=== PATIENT | male | born 1940 | race Caucasian/White ===

== ENCOUNTER 2017-12-15 15:46 | Inpatient (IN) | payer MEDICARE, BC ==
[2017-12-15] VITALS (9 sets, daily range): BP systolic 89–124; BP diastolic 50–70
[~2017-12-15] VITALS: Ht 170.2 cm; Wt 102.5 kg
[2017-12-15] MEDS ORDERED: Cefepime HCl 1 GM in NS 55 ML IV SCH (16:00)
[2017-12-15] MEDS ORDERED: NS 1000ml 2,800 ML IVLG ONE (16:00)
--- NOTE | 2017-12-15 16:10 | Emergency Room Report ---
History of Present Illness General Chief Complaint: Fever Source: Medical Record Present Illness HPI Mr. Pulliam is a 77-year-old male with history of hypertension, coronary artery disease, diabetes, BPH, GERD, VTE, CVA, pressure ulcers who presents with fever and lethargy. Recently diagnosed with kidney stone which is causing obstruction. No known surgical intervention. dx'd at [facility]. Has had a fever. noted that has been delirious and confused. Patient unable to give much history. He states that he's had pain in his rectal region after rectal temperature was obtained. Additional history was obtained by the when she arrived to the ER. Mr. Pulliam has a history of PE and DVT after a prolonged hospitalization. He is taking Xarelto at this time. It was held during recent urological intervention. Lithotripsy was not successful as treatment of right renal stone. Ureteral stent was placed. Patient also has history of coronary artery disease status post 2 cardiac stents placed over 5 years ago. PCP is Dr. Calixto Meza Allergies: Coded Allergies: No Known Allergies (Unverified , 12/15/17) Patient History Past Medical History: see triage record, old chart reviewed Past Surgical History: unable to obtain Pertinent Family History: unable to obtain Social History Narrative UTO Reviewed Nursing Documentation: PMH: Agreed; PSxH: Agreed Nursing Documentation-PMH Past Medical History: No History, Except For Hx Hypertension: Yes Hx Diabetes: Yes Hx Cerebrovascular Accident: Yes - left side weakness Review of Systems All Other Systems: limited - altered mental status Physical Exam Vital Signs Date Time Temp Pulse Resp B/P (MAP) Pulse Ox O2 Delivery O2 Flow Rate FiO2 12/15/17 15:40 100.2 102 18 105/76 98 Non-Rebreather 15.0 General Appearance: alert, mild distress, Chronically Ill Eyes: bilateral eye normal inspection, bilateral eye PERRL ENT: dry mucus membranes Neck: normal inspection, full range of motion Respiratory: normal inspection, chest non-tender, lungs clear, normal breath sounds, no rhonchi Cardiovascular #1: regular rate, rhythm, no gallop, no JVD, no murmur Cardiovascular #2: 2+ radial (R) Gastrointestinal: normal inspection, normal bowel sounds, non tender, soft, no mass, no organomegaly, no peritonitis, no bruit Rectal: normal exam Genitourinary: normal inspection Musculoskeletal: normal inspection Psychiatric: other - confused, confabulation Skin: pallor, other - clammy to touch Procedures Critical Care Time Critical Care Time 35 minutes of critical care time excluding procedures were used in the care of the patient. I reviewed labs and imaging. I reviewed previous electronic medical record. I updated at the bedside. Patient required multiple reassessments and interventions. Medical Decision Making Diagnostic Impression: Primary Impression: Sepsis Additional Impression: NSTEMI (non-ST elevated myocardial infarction) ER Course 1. sepsis: perinephric stranding seen on CT, possible source of infection in the tract with hx of recent intervention by urologist at [facility], explained that he had reese catheter removed yesterday, CXR without infiltrate 2. NSTEMI with hx of PE on Xarelo, DDX: NSTEMI, PE, given ASA admitted to ICU Admitted in serious condition Dr. Ron service EKG Diagnostic Results EKG Time: 15:55 Rate: tachycardiac ST Segments: no acute changes Other Impression no ST elevation no signs of schemia rate 100 bpm nl axis nl intervals PA Scribe Text second EKG obtained 1705 rate 95 bpm nl axis nl intervals no ST elevation no signs of ischemia poor R wave progression Rhythm Strip Diag. Results Rhythm Strip Time: 17:05 Last Vital Signs Date Time Temp Pulse Resp B/P (MAP) Pulse Ox O2 Delivery O2 Flow Rate FiO2 12/15/17 15:40 100.2 102 18 105/76 98 Non-Rebreather 15.0 Arlen Cruz MD Dec 15, 2017 16:10
[2017-12-15 16:17] LABS: HEMOGLOBIN 12.1 G/DL (14.2-18.0); MEAN CORPUSCULAR VOLUME 88 FL (80-99); PLATELET COUNT 293 K/UL (150-450); RED BLOOD COUNT 3.86 M/UL (4.70-6.10); RED CELL DISTRIBUTION WIDTH 12.3 % (11.6-14.8); WHITE BLOOD COUNT 21.6 K/UL (4.8-10.8)
[2017-12-15 16:27] LABS: APPEARANCE,URINE SLIGHTLY CLOUDY; BILIRUBIN, URINE NEGATIVE (NEGATIVE); COLOR,URINE BROWN; GLUCOSE, URINE (UA) NEGATIVE (NEGATIVE); KETONES,URINE 1+ (NEGATIVE); LEUKOCYTE ESTERASE ,URINE 3+ (NEGATIVE); NITRITE,URINE POSITIVE (NEGATIVE); PH,URINE 5 (4.5-8.0); PROTEIN,URINE 3+ (NEGATIVE); UROBILINOGEN,URINE 1 MG/DL (0.0-1.0)
[2017-12-15 16:32] LABS: INR 1.6 (0.9-1.1)
[2017-12-15] MEDS ORDERED: SIMETHICONE80 MG ORAL (16:43)
[2017-12-15] MEDS ORDERED: ZETIA10 MG ORAL (16:43)
[2017-12-15] MEDS ORDERED: ASCORBIC ACID500 MG ORAL (16:43)
[2017-12-15] MEDS ORDERED: ZINC SULFATE220 M1 ORAL (16:43)
[2017-12-15] MEDS ORDERED: MILK OF MA400 MG/51 ORAL (16:43)
[2017-12-15] MEDS ORDERED: PANTOPRAZOLE SO40 MG ORAL (16:43)
[2017-12-15] MEDS ORDERED: MULTIVITAMINS1 EAC2 ORAL (16:43)
[2017-12-15] MEDS ORDERED: XARELTO10 MG ORAL (16:43)
[2017-12-15] MEDS ORDERED: COLACE100 MG ORAL (16:43)
[2017-12-15] MEDS ORDERED: TAMSULOSIN HCL0.4 MG ORAL (16:43)
[2017-12-15] MEDS ORDERED: PROSCAR5 MG ORAL (16:43)
[2017-12-15] MEDS ORDERED: SENNA8.6 M2 PO (16:43)
[2017-12-15] MEDS ORDERED: ACETAMINOP160 MG/54 ORAL (16:43)
[2017-12-15] MEDS ORDERED: ATORVASTATIN CA20 MG ORAL (16:43)
[2017-12-15] MEDS ORDERED: GABAPENTIN300 MG ORAL (16:43)
[2017-12-15] MEDS ORDERED: VITAMIN D400 INTLU ORAL (16:43)
[2017-12-15] MEDS ORDERED: TRAMADOL HCL50 MG ORAL (16:43)
[2017-12-15] MEDS ORDERED: FAMOTIDINE20 MG ORAL (16:43)
[2017-12-15 16:44] LABS: ANION GAP 10 mmol/L (5-15); BLOOD UREA NITROGEN 27 mg/dL (7-18); CALCIUM 9.2 MG/DL (8.5-10.1); CARBON DIOXIDE 28 MMOL/L (21-32); CHLORIDE 103 MMOL/L (98-107); POTASSIUM 4.2 MMOL/L (3.5-5.1); SODIUM 141 MMOL/L (136-145)
[2017-12-15 16:48] LABS: ALANINE AMINOTRANSFERASE 49 U/L (12-78); ALBUMIN 2.6 G/DL (3.4-5.0); ALBUMIN/GLOBULIN RATIO 0.6 (1.0-2.7); ALKALINE PHOSPHATASE 106 U/L (46-116); ASPARTATE AMINO TRANSFERASE 52 U/L (15-37); BILIRUBIN,TOTAL 0.9 MG/DL (0.2-1.0)
[2017-12-15] MEDS ORDERED: Miralax 17gm pkt ORAL PRN (19:00)
[2017-12-15] MEDS ORDERED: Morphine Sulfate 2mg/ml Inj IVP PRN (19:00)
[2017-12-15] MEDS ORDERED: Albuterol/Ipratropium 3ml neb HHN PRN (19:00)
[2017-12-15] MEDS ORDERED: Enalaprilat 2.5mg/2ml Inj IV PRN (19:00)
[2017-12-15] MEDS ORDERED: Nitroglycerin Subl 0.4mg tab SL PRN (19:00)
[2017-12-15] MEDS ORDERED: dilTIAZem HCl 25mg/5ml Inj IV PRN (19:00)
--- NOTE | 2017-12-15 19:38 | History & Physical ---
History and Physical History & Physicial Dictated for Int Med-Dr Ron no. [id number] Mehdi Blair MD Dec 15, 2017 19:38
--- NOTE | 2017-12-15 19:59 | Cardiology Progress Note ---
Assessment/Plan Assessment/Plan repeat ekg adn trop now and q8h ecotrin dc xarelto start on heparin tomorrow Ecotrin 81 mg bb if tachy echo iv hydration watch renal function likely will need invasive testing not available here need to see trop trending up or down he has not sx or acs at this time or recenty need treatmen for possible underlyign infection [id number] Objective Last 24 Hour Vital Signs Date Time Temp Pulse Resp B/P (MAP) Pulse Ox O2 Delivery O2 Flow Rate FiO2 12/15/17 19:18 101.0 72 18 121/70 97 Nasal Cannula 3.0 96 12/15/17 18:44 101.0 72 18 121/70 97 Nasal Cannula 3.0 12/15/17 18:24 74 20 89/50 98 Nasal Cannula 3.0 12/15/17 17:40 97 22 122/64 98 Nasal Cannula 3.0 12/15/17 16:40 96 19 Nasal Cannula 5.0 96 12/15/17 16:30 101.8 91 18 111/68 94 Nasal Cannula 5.0 12/15/17 15:40 100.2 102 18 105/76 98 Non-Rebreather 15.0 Laboratory Tests Test 12/15/17 15:50 12/15/17 15:58 12/15/17 19:50 White Blood Count 21.6 K/UL (4.8-10.8) H Red Blood Count 3.86 M/UL (4.70-6.10) L Hemoglobin 12.1 G/DL (14.2-18.0) L Hematocrit 34.0 % (42.0-52.0) L Mean Corpuscular Volume 88 FL (80-99) Mean Corpuscular Hemoglobin 31.3 PG (27.0-31.0) H Mean Corpuscular Hemoglobin Concent 35.5 G/DL (32.0-36.0) Red Cell Distribution Width 12.3 % (11.6-14.8) Platelet Count 293 K/UL (150-450) Mean Platelet Volume 6.4 FL (6.5-10.1) L Neutrophils (%) (Auto) % (45.0-75.0) Lymphocytes (%) (Auto) % (20.0-45.0) Monocytes (%) (Auto) % (1.0-10.0) Eosinophils (%) (Auto) % (0.0-3.0) Basophils (%) (Auto) % (0.0-2.0) Differential Total Cells Counted 100 Neutrophils % (Manual) 87 % (45-75) H Lymphocytes % (Manual) 7 % (20-45) L Monocytes % (Manual) 6 % (1-10) Eosinophils % (Manual) 0 % (0-3) Basophils % (Manual) 0 % (0-2) Band Neutrophils 0 % (0-8) Platelet Estimate Adequate Platelet Morphology Normal Red Blood Cell Morphology Normal Prothrombin Time 16.4 SEC (9.30-11.50) H Prothromb Time International Ratio 1.6 (0.9-1.1) H Activated Partial Thromboplast Time 44 SEC (23-33) H Sodium Level 141 MMOL/L (136-145) Potassium Level 4.2 MMOL/L (3.5-5.1) Chloride Level 103 MMOL/L (98-107) Carbon Dioxide Level 28 MMOL/L (21-32) Anion Gap 10 mmol/L (5-15) Blood Urea Nitrogen 27 mg/dL (7-18) H Creatinine 2.0 MG/DL (0.55-1.30) H Estimat Glomerular Filtration Rate mL/min (>60) Glucose Level 162 MG/DL (74-106) H Lactic Acid Level 1.70 mmol/L (0.4-2.0) Calcium Level 9.2 MG/DL (8.5-10.1) Total Bilirubin 0.9 MG/DL (0.2-1.0) Aspartate Amino Transf (AST/SGOT) 52 U/L (15-37) H Alanine Aminotransferase (ALT/SGPT) 49 U/L (12-78) Alkaline Phosphatase 106 U/L (46-116) Troponin I 4.688 ng/mL (0.000-0.056) Pending Total Protein 7.1 G/DL (6.4-8.2) Albumin 2.6 G/DL (3.4-5.0) L Globulin 4.5 g/dL Albumin/Globulin Ratio 0.6 (1.0-2.7) L Urine Color Brown Urine Appearance Slightly cloudy Urine pH 5 (4.5-8.0) Urine Specific [place] 1.015 (1.005-1.035) Urine Protein 3+ (NEGATIVE) H Urine Glucose (UA) Negative (NEGATIVE) Urine Ketones 1+ (NEGATIVE) H Urine Blood 5+ (NEGATIVE) H Urine Nitrite Positive (NEGATIVE) H Urine Bilirubin Negative (NEGATIVE) Urine Urobilinogen 1 MG/DL (0.0-1.0) H Urine Leukocyte Esterase 3+ (NEGATIVE) H Urine RBC 10-15 /HPF (0 - 0) H Urine WBC 5-10 /HPF (0 - 0) H Urine Squamous Epithelial Cells None /LPF (NONE/OCC) Urine Bacteria Moderate /HPF (NONE) H Urine Yeast Few /HPF (NONE) H Chalo Alfonso MD Dec 15, 2017 19:59
[2017-12-15] MEDS ORDERED: Atorvastatin 80mg tab ORAL SCH (21:00)
[2017-12-15] MEDS: Heparin 5000 units/ml inj SUBQ SCH (21:20)
--- NOTE | 2017-12-15 22:15 | History and Physical Report ---
DATE OF ADMISSION: 12/15/2017 CHIEF COMPLAINT: The patient is a 77-year-old white male, who presents with a chief complaint of altered mental status. HISTORY OF PRESENT ILLNESS: The patient is a resident at rehabilitation center at [facility]. The patient was recently admitted to [facility] for renal calculus with obstruction. According to the patient's , the patient began to have fever and increased altered mental status yesterday, 12/14/2017. The patient was transferred to [facility] emergency room for evaluation. The patient is admitted with altered mental status and probable urosepsis. PAST MEDICAL HISTORY: Significant for, 1. Renal calculus as above. 2. Hypertension. 3. Coronary artery disease. 4. Diabetes type 2. 5. Benign prostatic hypertrophy. 6. History of deep venous thrombosis. 7. Cerebrovascular disease. PAST SURGICAL HISTORY: The patient denies. CURRENT MEDICATIONS: 1. Tylenol 650 mg p.o. q.6 hours p.r.n. 2. Vitamin C 500 mg p.o. daily. 3. Atorvastatin 20 mg p.o. at bedtime. 4. Zetia 10 mg p.o. at bedtime. 5. Pepcid 20 mg p.o. twice daily. 6. Proscar 5 mg p.o. daily. 7. Neurontin 300 mg p.o. 3 times daily. 8. Multivitamin p.o. daily. 9. Protonix 40 mg p.o. daily. 10. Xarelto 20 mg p.o. daily. 11. Simethicone 80 mg p.o. q.8 hours p.r.n. 12. Flomax 0.4 mg p.o. at bedtime. 13. Tramadol 50 mg p.o. q.6 hours p.r.n. 14. Vitamin D 400 units p.o. daily. 15. Zinc sulfate 220 mg p.o. daily. ALLERGIES: No known drug allergies. SOCIAL HISTORY: The patient is and lives at rehabilitation center of [facility]. The patient denies tobacco or alcohol use. REVIEW OF SYSTEMS: Unable to assess secondary to the patient's mental status. PHYSICAL EXAMINATION: VITAL SIGNS: Temperature 101.8, respirations 18, pulse 91, and blood pressure 111/60. GENERAL: The patient is a well-developed and well-nourished white male, in no apparent distress. HEENT: Eyes, pupils are equal and responsive to light and accommodation. Extraocular movements are intact. NECK: Supple without lymphadenopathy. CHEST: Lungs are clear to auscultation bilaterally without wheezes or rales. CARDIOVASCULAR: Regular rhythm and rate. S1 and S2 are normal without murmurs, rubs, or gallops. ABDOMEN: Soft, nontender, and nondistended. Positive bowel sounds. No evidence of hepatosplenomegaly. Currently, no rebounding or guarding noted. EXTREMITIES: Negative for clubbing, cyanosis, or edema. RECTAL/GENITAL: Refused. NEUROLOGIC: Cranial nerves II through XII are grossly intact without focal deficits. Motor strength is 5/5 bilaterally. Deep tendon reflexes are 2+ plantar. LABORATORY STUDIES: WBC 21.6, hemoglobin 12.1, hematocrit 34.0, and platelets 293,000. Sodium 141, potassium 4.2, chloride 103, CO2 28, BUN 27, creatinine 2.0, and glucose 162. Urinalysis showed 3+ protein, 1+ ketones, 5+ blood, and positive nitrite, with 5 to 10 wbc's. ASSESSMENT: This is a 77-year-old white male. 1. Urinary tract infection. 2. Altered mental status. 3. Leukocytosis. 4. Fever. 5. History of renal calculus. 6. Hypertension. 7. Coronary artery disease. 8. Diabetes type 2. 9. Benign prostatic hypertrophy. 10. History of deep venous thrombosis. 11. Cerebrovascular disease. 12. Hypercholesterolemia. TREATMENT: 1. Urinary tract infection. A urine culture is pending. The patient has been placed empirically on intravenous cefepime. The patient has also been started on intravenous Levaquin. We will follow recommendations. Await urine culture and sensitivity. 2. Altered mental status probably secondary to urinary tract infection as above. 3. Leukocytosis/fever. Continue cefepime and Levaquin as above for presumed urosepsis. 4. Hypertension. The patient is currently hypotensive. Hold antihypertensive medications. 5. Coronary artery disease. 6. Diabetes type 2. A NovoLog sliding scale has been instituted. 7. Benign prostatic hypertrophy. Continue Flomax as above. 8. History of deep venous thrombosis. Continue Xarelto as above. 9. Cerebrovascular disease. 10. Hypercholesterolemia. Continue Lipitor as above. Mehdi Blair M.D. DR: GWEN JOB#: [id number] CC:
[2017-12-16] VITALS (19 sets, daily range): BP systolic 84–148; BP diastolic 45–79
--- NOTE | 2017-12-16 03:15 | Consultation ---
DATE OF CONSULTATION: 12/15/2017 CARDIOLOGY CONSULTATION CONSULTING PHYSICIAN: Chalo Alfonso M.D. REFERRING PHYSICIANS: 1. Lito Ron M.D. 2. Scott Hoover M.D. REASON FOR REFERRAL: Abnormal cardiac enzymes. HISTORY OF PRESENT ILLNESS: This is an elderly gentleman, who is usually followed by Dr. De Luna , who recently had a hospitalization at [facility] for nephrolithiasis for which he underwent a stent placement and subsequently was felt to be weak, was transferred to a convalescent facility where he has been for the past week, gradually improved. He is really not ambulatory. He is basically bedridden. He was able to stay in a chair, and over the past few days has had increasing ability to get on with physical therapy until last night and today. He has had some constipation related to pain medication that has been administered but he had bowel movements today. He was not himself since last night, subsequently developed fever, and was found hallucinating and sleepy most of the time, although he was even able to get up and do some physical therapy with the therapist. Subsequently, he developed fever and was transferred to [facility] for further evaluation. He is awake, responsive. Right now, he absolutely denies any pain, pressure, tightness, or heaviness in his chest. Does not have any shortness of breath. Denies having any shortness of breath recently and no heart pounding or palpitations. PAST MEDICAL HISTORY: According to the [facility] records, basically he has a history of CVA related to a fall and head injury. He has had history of PE, DVT, and he has had a history of a prior stenting a number of years ago that was performed in [facility]. His presenting symptoms apparently at that time were exertional shortness of breath and did not have any chest pain. 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 History of brain injury and craniotomy for intracranial bleeding, decompressive bifrontal craniotomy, evacuation of hematoma, cystoscopy, hernia repair, stellate ganglion block, tonsillectomy, ureteral stent that was recently placed, and coronary stent that was placed a number of years ago. ALLERGIES: He is not allergic to any medication. SOCIAL HISTORY: Never smoked. Never drank. He was quite active before his stroke. REVIEW OF SYSTEMS: GASTROINTESTINAL: He denies any nausea, vomiting, or diarrhea. He is actually constipated. No black or bloody stools. GENITOURINARY: He has had a Cummings catheter and had some pain related to his kidney stones that have abated recently after ureteral stents were placed by Dr. Thompson. PULMONARY: Occasional coughing. CONSTITUTIONAL: Negative except today he developed some fevers according to his . NEUROLOGICAL: He has left-sided paralysis. He was confused earlier today although he is communicative and responsive at the present time. PHYSICAL EXAMINATION: GENERAL: Shows to be obese, elderly gentleman, in no respiratory distress. Lying down with approximately 20 degrees head of bed elevation. NECK: Supple. No jugular venous distention. LUNGS: Clear to auscultation and percussion. CARDIAC: Regular rate and rhythm. No heaves, thrills, gallops, or rubs are noted. ABDOMEN: Abdomen is obese, somewhat distended. No guarding. No rigidity. No rebound tenderness. EXTREMITIES: There is no clubbing, cyanosis, or edema. NEUROLOGICAL: He is awake, alert, and responsive. Moves all 4 extremities. LABORATORY VALUES: Shows basically incomplete right bundle-branch conduction defect. Low voltage QRS complexes. He has some changes suggestive of inferior myocardial infarction that is likely old based on the presence of Q-waves and the EKG when directly compared with the [facility]' EKG is grossly unchanged since November of 2017. There are no other significant ST or T-wave abnormalities on the electrocardiogram. His blood tests - white count 21.6, hemoglobin 12.1, platelet count of 293, 87 polys, 7 lymphocytes, and 6 monos. Sodium is 141, potassium 4.2, chloride 103, bicarb 28, BUN of 27, creatinine 2.0 and glucose of 162. Lactic acid of 1.6. AST and ALT of 52 and 49, alkaline phosphate is 106. Troponin 4.7. Albumin of 2.6. His coags - INR 1.6 and PTT of 44. Urinalysis shows 5 to 10 WBCs, 10 to 15 RBCs, and 3+ leukocyte esterase. He may have had a chest x-ray. Unfortunately, I am unable to review that. In direct comparison with the [facility] data, his last creatinine was 1.6, but he has had level as far as 2.0. ASSESSMENT AND PLAN: 1. Dld-HC-vyczlxwot myocardial infarction, silent. 2. Fever and leukocytosis. 3. Probable urinary tract infection. 4. Status post recent ureteral stent placement. 5. Nephrolithiasis. 6. Coronary disease with history of stent. 7. History of hemorrhagic CVA, status post evacuation with left-sided hemiparesis. 8. History of deep venous thrombosis and pulmonary emboli status, on anticoagulation with Xarelto. This patient was seen in cardiac consultation. The patient absolutely denies any chest pains or shortness of breath. Nothing to suggest that he has had an acute coronary syndrome despite the fact that he has got elevated cardiac enzymes. His medication list from the facility was reviewed. He is on Tylenol, Lipitor 20 mg, Colace, cephalexin, Dulcolax, Flomax, folic acid, gabapentin 300 mg 2 tablets 2 times daily, MiraLAX, multivitamins, Protonix, Proscar, Robitussin, senna, simethicone, Tessalon, tramadol, Tylenol, vitamin C, vitamin D3, Xarelto 20 mg a day, Zetia 10 mg, and zinc sulfate 220 mg on a daily basis. He is not significantly bradycardic. He should be on higher dose of statins for the time being. His stat EKG has been repeated, appears to be unchanged. Stat cardiac enzymes were ordered. He needs to be on some aspirin, which will be provided. His Xarelto will be on hold, and he may require to be anticoagulated with heparin while Xarelto is washed out of his system, although probable no need for heparin for another 24 hours or so. He likely will require cardiac catheterization. His renal function needs to improve as he may be subjected to contrast with contrast nephropathy. Hydration with intravenous fluid is in order. An echocardiogram for evaluation of systolic function, and his Xarelto will be discontinued as mentioned. He will not be receiving beta-blockers unless he becomes tachycardic as his heart rate at this time is not significantly elevated. His other recommendation will be provided based on the results of his testing. He will likely need to have further evaluation, possibly invasive that is not available here at this hospital. He may require transfer to a cath facility. Chalo Alfonso M.D. DR: LORENZA JOB#: [id number] CC:
[2017-12-16] MEDS ORDERED: NS 250 ML IVPB ONE (04:00)
[2017-12-16 05:07] LABS: HEMATOCRIT 27.6 % (42.0-52.0); HEMOGLOBIN 9.3 G/DL (14.2-18.0); MEAN CORPUSCULAR VOLUME 89 FL (80-99); PLATELET COUNT 208 K/UL (150-450); RED BLOOD COUNT 3.12 M/UL (4.70-6.10); RED CELL DISTRIBUTION WIDTH 12.6 % (11.6-14.8); WHITE BLOOD COUNT 14.1 K/UL (4.8-10.8)
[2017-12-16 05:14] LABS: INR 1.2 (0.9-1.1)
[2017-12-16 05:47] LABS: CHOLESTEROL 74 MG/DL (< 200); HDL CHOLESTEROL 22 MG/DL (40-60); TRIGLYCERIDES 86 MG/DL (30-150)
[2017-12-16] MEDS ORDERED: Aspirin Baby 81mg ORAL SCH ×2 (09:00)
[2017-12-16] MEDS: Heparin 5000 units/ml inj SUBQ SCH (10:07)
--- NOTE | 2017-12-16 11:00 | Pulmonolgy Critical Care Note ---
Critical Care - Asmt/Plan Problems: (1) Sepsis (2) NSTEMI (non-ST elevated myocardial infarction) (3) ATN (acute tubular necrosis) (4) Chronic anticoagulation (5) CVA, old, hemiparesis Respiratory: monitor respiratory rate, adjust FIO2, CXR Cardiac: continue pressors Renal: F/U I&O, keep IV fluid Infectious Disease: continue antibiotics Gastrointestinal: continue feedings/current rate Endocrine: monitor blood sugar, check TSH, continue sliding scale insulin Hematologic: transfuse if hgb<8.5 Neurologic: PRN Morphine, keep patient comfortable Affect: PRN ativan Disposition: keep in ICU Notes Reviewed: renal Discussed with: nurses, manager rn casedepartment store manager - Objective Last 24 Hour Vital Signs Date Time Temp Pulse Resp B/P (MAP) Pulse Ox O2 Delivery O2 Flow Rate FiO2 12/16/17 07:43 98 Nasal Cannula 3.0 32 12/16/17 07:43 Nasal Cannula 3.0 32 12/16/17 07:43 76 16 Nasal Cannula 3.0 32 12/16/17 07:00 63 17 110/61 (77) 95 12/16/17 06:56 97.4 12/16/17 06:00 60 18 88/53 (65) 96 12/16/17 05:00 70 18 116/69 (85) 96 12/16/17 04:00 97.4 18 100/51 (67) 96 12/16/17 04:00 67 12/16/17 04:00 Nasal Cannula 3.0 12/16/17 03:00 71 14 84/45 (58) 95 12/16/17 02:00 81 18 100/51 (67) 95 12/16/17 01:00 98.6 67 17 110/58 (75) 96 12/16/17 00:00 66 12/16/17 00:00 Nasal Cannula 3.0 12/16/17 00:00 65 18 105/61 (76) 95 12/15/17 23:00 62 16 110/62 (78) 95 12/15/17 22:00 71 17 121/63 (82) 97 12/15/17 21:00 63 19 91/50 (64) 96 12/15/17 20:20 97 Nasal Cannula 3.0 32 12/15/17 20:20 72 18 Nasal Cannula 3.0 32 12/15/17 20:20 Nasal Cannula 3.0 32 12/15/17 20:00 72 18 110/62 (78) 95 12/15/17 20:00 Nasal Cannula 3.0 12/15/17 20:00 Nasal Cannula 3.0 12/15/17 20:00 83 12/15/17 19:27 98.9 62 18 124/70 (88) 95 12/15/17 19:18 101.0 72 18 121/70 97 Nasal Cannula 3.0 96 12/15/17 18:44 101.0 72 18 121/70 97 Nasal Cannula 3.0 12/15/17 18:24 74 20 89/50 98 Nasal Cannula 3.0 12/15/17 17:40 97 22 122/64 98 Nasal Cannula 3.0 12/15/17 16:40 96 19 Nasal Cannula 5.0 96 12/15/17 16:30 101.8 91 18 111/68 94 Nasal Cannula 5.0 12/15/17 15:40 100.2 102 18 105/76 98 Non-Rebreather 15.0 Status: awake Condition: critical Neck: full ROM Lungs: clear Heart: HR/BP stable Abdomen: soft, active bowel sounds Extremities: no C/C/E Decubiti: location Micro: Microbiology Date/Time Source Procedure Growth Status 12/15/17 15:58 Urine,Clean Catch Urine Culture - Preliminary Gram Negative Bacillus 1 Resulted 12/15/17 17:45 Rectum VRE Culture Pending Resulted 12/15/17 17:45 Rectum - Preliminary Resulted Critical Care - Subjective ROS Limited/Unobtainable: No ICU Day: 2 Interval Events: 77-year-old male with history of hypertension, PE and DVT, coronary artery disease, ( status post 2 cardiac stents placed over 5), diabetes, BPH, GERD, VTE, CVA, pressure ulcers who presents with fever and lethargy. He had a fever. noted that has been delirious and confused. He had a temperature in ER and received antibiotics. His troponin was elevated, therefor he is admitted to ICU. Currently he is more coherent and c/o post CVA pain which is chronic for the last 6 years. FI02: 32 Sputum Amount: None I&O: Intake and Output 12/15/17 12/16/17 19:00 07:00 Intake Total 245 ml Output Total 400 ml Balance -155 ml Intake Oral 20 ml IV Total 225 ml Output Urine Total 400 ml # Voids 1 2 # Bowel Movements 5 CXR: No acute infiltrate. Labs: Laboratory Tests Test 12/15/17 15:50 12/15/17 15:58 12/15/17 19:55 12/16/17 04:05 White Blood Count 21.6 K/UL (4.8-10.8) H 14.1 K/UL (4.8-10.8) H Red Blood Count 3.86 M/UL (4.70-6.10) L 3.12 M/UL (4.70-6.10) L Hemoglobin 12.1 G/DL (14.2-18.0) L 9.3 G/DL (14.2-18.0) L Hematocrit 34.0 % (42.0-52.0) L 27.6 % (42.0-52.0) L Mean Corpuscular Volume 88 FL (80-99) 89 FL (80-99) Mean Corpuscular Hemoglobin 31.3 PG (27.0-31.0) H 29.9 PG (27.0-31.0) Mean Corpuscular Hemoglobin Concent 35.5 G/DL (32.0-36.0) 33.7 G/DL (32.0-36.0) Red Cell Distribution Width 12.3 % (11.6-14.8) 12.6 % (11.6-14.8) Platelet Count 293 K/UL (150-450) 208 K/UL (150-450) Mean Platelet Volume 6.4 FL (6.5-10.1) L 7.0 FL (6.5-10.1) Neutrophils (%) (Auto) % (45.0-75.0) % (45.0-75.0) Lymphocytes (%) (Auto) % (20.0-45.0) % (20.0-45.0) Monocytes (%) (Auto) % (1.0-10.0) % (1.0-10.0) Eosinophils (%) (Auto) % (0.0-3.0) % (0.0-3.0) Basophils (%) (Auto) % (0.0-2.0) % (0.0-2.0) Differential Total Cells Counted 100 100 Neutrophils % (Manual) 87 % (45-75) H 89 % (45-75) H Lymphocytes % (Manual) 7 % (20-45) L 6 % (20-45) L Monocytes % (Manual) 6 % (1-10) 5 % (1-10) Eosinophils % (Manual) 0 % (0-3) 0 % (0-3) Basophils % (Manual) 0 % (0-2) 0 % (0-2) Band Neutrophils 0 % (0-8) 0 % (0-8) Platelet Estimate Adequate Adequate Platelet Morphology Normal Normal Red Blood Cell Morphology Normal Prothrombin Time 16.4 SEC (9.30-11.50) H 13.0 SEC (9.30-11.50) H Prothromb Time International Ratio 1.6 (0.9-1.1) H 1.2 (0.9-1.1) H Activated Partial Thromboplast Time 44 SEC (23-33) H 39 SEC (23-33) H Sodium Level 141 MMOL/L (136-145) Potassium Level 4.2 MMOL/L (3.5-5.1) Chloride Level 103 MMOL/L (98-107) Carbon Dioxide Level 28 MMOL/L (21-32) Anion Gap 10 mmol/L (5-15) Blood Urea Nitrogen 27 mg/dL (7-18) H Creatinine 2.0 MG/DL (0.55-1.30) H Estimat Glomerular Filtration Rate mL/min (>60) Glucose Level 162 MG/DL (74-106) H Lactic Acid Level 1.70 mmol/L (0.4-2.0) Calcium Level 9.2 MG/DL (8.5-10.1) Total Bilirubin 0.9 MG/DL (0.2-1.0) Aspartate Amino Transf (AST/SGOT) 52 U/L (15-37) H Alanine Aminotransferase (ALT/SGPT) 49 U/L (12-78) Alkaline Phosphatase 106 U/L (46-116) Troponin I 4.688 ng/mL (0.000-0.056) 6.167 ng/mL (0.000-0.056) 3.242 ng/mL (0.000-0.056) Total Protein 7.1 G/DL (6.4-8.2) Albumin 2.6 G/DL (3.4-5.0) L Globulin 4.5 g/dL Albumin/Globulin Ratio 0.6 (1.0-2.7) L Urine Color Brown Urine Appearance Slightly cloudy Urine pH 5 (4.5-8.0) Urine Specific [place] 1.015 (1.005-1.035) Urine Protein 3+ (NEGATIVE) H Urine Glucose (UA) Negative (NEGATIVE) Urine Ketones 1+ (NEGATIVE) H Urine Blood 5+ (NEGATIVE) H Urine Nitrite Positive (NEGATIVE) H Urine Bilirubin Negative (NEGATIVE) Urine Urobilinogen 1 MG/DL (0.0-1.0) H Urine Leukocyte Esterase 3+ (NEGATIVE) H Urine RBC 10-15 /HPF (0 - 0) H Urine WBC 5-10 /HPF (0 - 0) H Urine Squamous Epithelial Cells None /LPF (NONE/OCC) Urine Bacteria Moderate /HPF (NONE) H Urine Yeast Few /HPF (NONE) H Hypochromasia 2+ Anisocytosis 1+ Spherocytes 1+ C-Reactive Protein, Quantitative 38.3 mg/dL (0.00-0.90) H Triglycerides Level 86 MG/DL (30-150) Cholesterol Level 74 MG/DL (< 200) LDL Cholesterol 19 mg/dL (<100) HDL Cholesterol 22 MG/DL (40-60) L Cholesterol/HDL Ratio 3.4 (3.3-4.4) Thyroid Stimulating Hormone (TSH) 0.615 uiU/mL (0.358-3.740) Scott Hoover MD Dec 16, 2017 11:00
--- NOTE | 2017-12-16 11:00 | Diagnostic Imaging Report ---
Indication: Abdominal pain Technique: Continuous helical transaxial imaging of the abdomen and pelvis was obtained from the lung bases to the pubic symphysis. No intravenous contrast was administered. Coronal 2-D reformats were also obtained. Automatic Exposure Control was utilized. Total Dose length Product (DLP): 1203.[address] Dose Index Volume (CTDIvol): 19.95 mGy Comparison: none Findings: There is a double-J right ureteral stent which appears to be in good position. There is no hydronephrosis. There are multiple stones of varying size within both kidneys measuring no more than 5 to 6 mm. Note is made of a 6 mm stone within the right renal pelvis adjacent to the stent. The bladder is nondistended. Prostate hypertrophy noted. Prostate measurement is approximately 5.4 x 5.6 x 6.0 cm. There is moderate degree of fecal retention in the colon and rectum. There is no free fluid or free air. Perinephric stranding is noted nonspecific. Gallbladder stones versus sludge noted. Basilar atelectasis is present. Cardiomegaly noted. There is narrowing of intervertebral discs and accompanying endplate osteophyte formation. Hypertrophied facet joints also demonstrated. IMPRESSION: Multiple nonobstructive stones within both kidneys as described above. Right ureteral stent in good position. No hydronephrosis. Perinephric stranding nonspecific Moderate fecal retention Prostate hypertrophy. Posterior basal atelectasis Cardiomegaly Gallstones versus sludge. The CT scanner at [facility] is accredited by the [employer] and the scans are performed using dose optimization techniques as appropriate to a performed exam including Automatic Exposure control.
[2017-12-16 11:54] LABS: % IRON SATURATION 7 % (15-50); IRON 8 ug/dL (50-175); TOTAL IRON BINDING CAPACITY 121 ug/dL (250-450)
[2017-12-16 11:56] LABS: CREATINE KINASE 68 U/L (26-308); INR 1.1 (0.9-1.1); LACTATE DEHYDROGENASE 201 U/L (81-234)
[2017-12-16] MEDS ORDERED: Cefepime HCl 1 GM in D5W 55 ML IVPB SCH (12:00)
--- NOTE | 2017-12-16 13:53 | Diagnostic Imaging Report ---
Indication: Dyspnea Comparison: None A single view chest radiograph was obtained. Findings: No definite infiltrate or pulmonary vascular congestion identified. Lung volumes are low but no infiltrate seen. The heart is enlarged. The aorta is mildly enlarged consistent with atherosclerotic vascular disease. The bones are osteopenic. Impression: No acute disease
--- NOTE | 2017-12-16 16:16 | Internal Med Progress Note ---
Subjective Physician Name Lito Ron Attending Physician Lito Ron MD Current Medications Medications (Trade) Dose Ordered Sig/Denisa Route PRN Reason Start Time Stop Time Status Last Admin Dose Admin Acetaminophen (Tylenol) 650 mg Q4H PRN ORAL FEVER (temp>100.5F) 12/15/17 19:00 01/14/18 18:59 12/16/17 15:53 Albuterol/ Ipratropium (Albuterol/ Ipratropium) 3 ml Q4H PRN HHN Shortness of Breath 12/15/17 19:00 12/20/17 18:59 Aspirin (ASA) 81 mg DAILY ORAL 12/16/17 09:00 01/15/18 08:59 12/16/17 10:05 Atorvastatin Calcium (Lipitor) 80 mg BEDTIME ORAL 12/15/17 21:00 01/14/18 20:59 12/15/17 21:19 Cefepime HCl 1 gm/ Dextrose 55 ml @ 110 mls/hr Q24H IVPB 12/17/17 00:00 12/24/17 00:00 Diltiazem HCl (Cardizem) 10 mg Q1H PRN IV heart rate more than 120, 12/15/17 19:00 01/14/18 18:59 Enalaprilat (Vasotec) 2.5 mg Q6H PRN IV sbp more than 160 12/15/17 19:00 01/14/18 18:59 EZETIMIBE (Zetia) 10 mg BEDTIME ORAL 12/16/17 21:00 01/15/18 20:59 Finasteride (Proscar) 5 mg DAILY ORAL 12/17/17 09:00 01/16/18 08:59 Gabapentin (Neurontin) 300 mg THREE TIMES A DAY ORAL 12/16/17 13:00 01/15/18 12:59 12/16/17 12:53 Heparin Sodium (Porcine) (Heparin 5000 units/ml) 5,000 units EVERY 12 HOURS SUBQ 12/15/17 21:00 01/14/18 20:59 12/16/17 10:07 Morphine Sulfate (Morphine Sulfate) 2 mg Q4H PRN IVP severe Pain (Pain Scale 7-10) 12/15/17 19:00 12/22/17 18:59 Nitroglycerin (Ntg) 0.4 mg Q5M PRN SL Prn Chest Pain 12/15/17 19:00 01/14/18 18:59 Ondansetron HCl (Zofran) 4 mg Q6H PRN IVP Nausea & Vomiting 12/15/17 19:00 01/14/18 18:59 Polyethylene Glycol (Miralax) 17 gm DAILYPRN PRN ORAL Constipation 12/15/17 19:00 01/14/18 18:59 Sodium Chloride 1,000 ml @ 75 mls/hr [id number] IV 12/16/17 04:00 01/15/18 03:59 12/16/17 04:08 Tamsulosin HCl (Flomax) 0.4 mg BEDTIME ORAL 12/16/17 21:00 01/15/18 20:59 Temazepam (Restoril) 15 mg HSPRN PRN ORAL Insomnia 12/15/17 19:00 12/22/17 18:59 Allergies: Coded Allergies: No Known Allergies (Unverified , 12/15/17) Subjective awake, alert, responsive, in ICU, No CP or SOB Objective Last Vital Signs Date Time Temp Pulse Resp B/P (MAP) Pulse Ox O2 Delivery O2 Flow Rate FiO2 12/16/17 07:43 98 Nasal Cannula 3.0 32 12/16/17 07:43 76 16 12/16/17 07:00 110/61 (77) 12/16/17 06:56 97.4 Laboratory Tests Test 12/15/17 19:55 12/16/17 04:05 12/16/17 11:20 12/16/17 15:18 Troponin I 6.167 ng/mL (0.000-0.056) 3.242 ng/mL (0.000-0.056) Pending White Blood Count 14.1 K/UL (4.8-10.8) H Red Blood Count 3.12 M/UL (4.70-6.10) L Hemoglobin 9.3 G/DL (14.2-18.0) L Hematocrit 27.6 % (42.0-52.0) L Mean Corpuscular Volume 89 FL (80-99) Mean Corpuscular Hemoglobin 29.9 PG (27.0-31.0) Mean Corpuscular Hemoglobin Concent 33.7 G/DL (32.0-36.0) Red Cell Distribution Width 12.6 % (11.6-14.8) Platelet Count 208 K/UL (150-450) Mean Platelet Volume 7.0 FL (6.5-10.1) Neutrophils (%) (Auto) % (45.0-75.0) Lymphocytes (%) (Auto) % (20.0-45.0) Monocytes (%) (Auto) % (1.0-10.0) Eosinophils (%) (Auto) % (0.0-3.0) Basophils (%) (Auto) % (0.0-2.0) Differential Total Cells Counted 100 Neutrophils % (Manual) 89 % (45-75) H Lymphocytes % (Manual) 6 % (20-45) L Monocytes % (Manual) 5 % (1-10) Eosinophils % (Manual) 0 % (0-3) Basophils % (Manual) 0 % (0-2) Band Neutrophils 0 % (0-8) Platelet Estimate Adequate Platelet Morphology Normal Hypochromasia 2+ Anisocytosis 1+ Spherocytes 1+ Prothrombin Time 13.0 SEC (9.30-11.50) H 11.9 SEC (9.30-11.50) H Prothromb Time International Ratio 1.2 (0.9-1.1) H 1.1 (0.9-1.1) Activated Partial Thromboplast Time 39 SEC (23-33) H 40 SEC (23-33) H C-Reactive Protein, Quantitative 38.3 mg/dL (0.00-0.90) H Triglycerides Level 86 MG/DL (30-150) Cholesterol Level 74 MG/DL (< 200) LDL Cholesterol 19 mg/dL (<100) HDL Cholesterol 22 MG/DL (40-60) L Cholesterol/HDL Ratio 3.4 (3.3-4.4) Thyroid Stimulating Hormone (TSH) 0.615 uiU/mL (0.358-3.740) Erythrocyte Sedimentation Rate 112 MM/HR (0-20) H Reticulocyte Count 2.0 % (0.0-2.0) Uric Acid 5.0 MG/DL (2.6-7.2) Iron Level 8 ug/dL (50-175) L Total Iron Binding Capacity 121 ug/dL (250-450) L Percent Iron Saturation 7 % (15-50) L Unsaturated Iron Binding 113 ug/dL (112-346) Lactate Dehydrogenase 201 U/L (81-234) Total Creatine Kinase 68 U/L (26-308) Carcinoembryonic Antigen Pending Vitamin B12 Level 621 PG/ML (193-986) Folate 29.1 NG/ML (8.6-58.9) Microbiology Date/Time Source Procedure Growth Status 12/15/17 15:58 Urine,Clean Catch Urine Culture - Preliminary Gram Negative Bacillus 1 Resulted 12/15/17 17:45 Rectum VRE Culture Pending Resulted 12/15/17 17:45 Rectum - Preliminary Resulted Intake and Output 12/15/17 12/16/17 19:00 07:00 Intake Total 245 ml Output Total 400 ml Balance -155 ml Intake Oral 20 ml IV Total 225 ml Output Urine Total 400 ml # Voids 1 2 # Bowel Movements 5 Objective General: No acute distress, awake and alert HEENT: NCAT, sclera anicteric, PERRL, EOMI. Left facial droop. Neck: Supple, no significant jugular venous distention, Lungs: Fair inspiratory effort, no Wheeze or Rales. Heart: Regular rate and rhythm, normal S1/S2, no murmurs, distant heart sound. Abdomen: soft, nontender, nondistended. Normoactive bowel sounds. Obesity. Extremities: No Cyanosis , clubbing or edema. Neuro: A&O x 3, Able to move right side extremities, left side hemiparesis. Psych: Normal mood and affect Assessment/Plan Assessment/Plan 1. Sepsis due to GNB Urinary tract infection. 2. Altered mental status with toxic metabolic encephalopathy. 3. Leukocytosis. 4. NSTEMI 5. History of renal calculus. 6. Hypertension. 7. Coronary artery disease. 8. Diabetes type 2. 9. Benign prostatic hypertrophy. 10. History of deep venous thrombosis. 11. Cerebrovascular disease with Left side HP. 12. Hypercholesterolemia. Plan: monitor labs and cultures 2D Echo Abx: Cefepime Full code Heparin SQ. Lito Ron MD Dec 16, 2017 16:16
--- NOTE | 2017-12-16 16:44 | Consultation ---
Consult Note Consult Note # [id number] Prieto Millan MD Dec 16, 2017 16:44
--- NOTE | 2017-12-16 18:25 | Cardiology Progress Note ---
Assessment/Plan Assessment/Plan 1. Mzp-OK-cayxeldng myocardial infarction, silent. 2. Fever and leukocytosis. 3. Probable urinary tract infection. 4. Status post recent ureteral stent placement. 5. Nephrolithiasis. 6. Coronary disease with history of stent. 7. History of hemorrhagic CVA, status post evacuation with left-sided hemiparesis. 8. History of deep venous thrombosis and pulmonary emboli status, on anticoagulation with Xarelto. 9. Phtn will need venous dupelx trop down trending still no sx to suggest acs / pe repeat labs in of xarelto start heparin on Ecotrin lwo dose ekg not yet available prelim echo noted phtn chronicity unkown Subjective Cardiovascular: Denies: chest pain, lightheadedness, palpitations Respiratory: Denies: shortness of breath Gastrointestinal/Abdominal: Denies: abdomen distended Genitourinary: Denies: burning Objective Last 24 Hour Vital Signs Date Time Temp Pulse Resp B/P (MAP) Pulse Ox O2 Delivery O2 Flow Rate FiO2 12/16/17 17:00 79 22 137/71 (93) 97 12/16/17 16:00 98.4 69 21 138/66 (90) 97 12/16/17 16:00 Nasal Cannula 3.0 12/16/17 16:00 75 12/16/17 15:00 79 20 132/74 (93) 97 12/16/17 14:00 81 18 135/79 (97) 97 12/16/17 13:00 73 17 132/77 (95) 97 12/16/17 12:00 Nasal Cannula 3.0 12/16/17 12:00 98.6 74 17 112/65 (81) 98 12/16/17 12:00 59 12/16/17 11:00 59 16 106/65 (79) 98 12/16/17 10:00 77 17 134/72 (92) 96 12/16/17 09:00 74 17 127/72 (90) 95 12/16/17 08:00 Nasal Cannula 3.0 12/16/17 08:00 76 12/16/17 08:00 98.2 74 17 131/71 (91) 95 12/16/17 07:43 98 Nasal Cannula 3.0 32 12/16/17 07:43 Nasal Cannula 3.0 32 12/16/17 07:43 76 16 Nasal Cannula 3.0 32 12/16/17 07:00 63 17 110/61 (77) 95 12/16/17 06:56 97.4 12/16/17 06:00 60 18 88/53 (65) 96 12/16/17 05:00 70 18 116/69 (85) 96 12/16/17 04:00 97.4 18 100/51 (67) 96 12/16/17 04:00 67 12/16/17 04:00 Nasal Cannula 3.0 12/16/17 03:00 71 14 84/45 (58) 95 12/16/17 02:00 81 18 100/51 (67) 95 12/16/17 01:00 98.6 67 17 110/58 (75) 96 12/16/17 00:00 66 12/16/17 00:00 Nasal Cannula 3.0 12/16/17 00:00 65 18 105/61 (76) 95 12/15/17 23:00 62 16 110/62 (78) 95 12/15/17 22:00 71 17 121/63 (82) 97 12/15/17 21:00 63 19 91/50 (64) 96 12/15/17 20:20 97 Nasal Cannula 3.0 32 12/15/17 20:20 72 18 Nasal Cannula 3.0 32 12/15/17 20:20 Nasal Cannula 3.0 32 12/15/17 20:00 72 18 110/62 (78) 95 12/15/17 20:00 Nasal Cannula 3.0 12/15/17 20:00 Nasal Cannula 3.0 12/15/17 20:00 83 12/15/17 19:27 98.9 62 18 124/70 (88) 95 12/15/17 19:18 101.0 72 18 121/70 97 Nasal Cannula 3.0 96 12/15/17 18:44 101.0 72 18 121/70 97 Nasal Cannula 3.0 12/15/17 18:24 74 20 89/50 98 Nasal Cannula 3.0 General Appearance: no apparent distress, alert Neck: non-tender Cardiovascular: normal rate, regular rhythm Respiratory/Chest: lungs clear Abdomen: normal bowel sounds, non tender, soft Extremities: no swelling Intake and Output 12/15/17 12/16/17 19:00 07:00 Intake Total 245 ml Output Total 400 ml Balance -155 ml Intake Oral 20 ml IV Total 225 ml Output Urine Total 400 ml # Voids 1 2 # Bowel Movements 5 Laboratory Tests Test 12/15/17 19:55 12/16/17 04:05 12/16/17 11:20 12/16/17 15:18 Troponin I 6.167 ng/mL (0.000-0.056) 3.242 ng/mL (0.000-0.056) 1.875 ng/mL (0.000-0.056) White Blood Count 14.1 K/UL (4.8-10.8) H Red Blood Count 3.12 M/UL (4.70-6.10) L Hemoglobin 9.3 G/DL (14.2-18.0) L Hematocrit 27.6 % (42.0-52.0) L Mean Corpuscular Volume 89 FL (80-99) Mean Corpuscular Hemoglobin 29.9 PG (27.0-31.0) Mean Corpuscular Hemoglobin Concent 33.7 G/DL (32.0-36.0) Red Cell Distribution Width 12.6 % (11.6-14.8) Platelet Count 208 K/UL (150-450) Mean Platelet Volume 7.0 FL (6.5-10.1) Neutrophils (%) (Auto) % (45.0-75.0) Lymphocytes (%) (Auto) % (20.0-45.0) Monocytes (%) (Auto) % (1.0-10.0) Eosinophils (%) (Auto) % (0.0-3.0) Basophils (%) (Auto) % (0.0-2.0) Differential Total Cells Counted 100 Neutrophils % (Manual) 89 % (45-75) H Lymphocytes % (Manual) 6 % (20-45) L Monocytes % (Manual) 5 % (1-10) Eosinophils % (Manual) 0 % (0-3) Basophils % (Manual) 0 % (0-2) Band Neutrophils 0 % (0-8) Platelet Estimate Adequate Platelet Morphology Normal Hypochromasia 2+ Anisocytosis 1+ Spherocytes 1+ Prothrombin Time 13.0 SEC (9.30-11.50) H 11.9 SEC (9.30-11.50) H Prothromb Time International Ratio 1.2 (0.9-1.1) H 1.1 (0.9-1.1) Activated Partial Thromboplast Time 39 SEC (23-33) H 40 SEC (23-33) H C-Reactive Protein, Quantitative 38.3 mg/dL (0.00-0.90) H Triglycerides Level 86 MG/DL (30-150) Cholesterol Level 74 MG/DL (< 200) LDL Cholesterol 19 mg/dL (<100) HDL Cholesterol 22 MG/DL (40-60) L Cholesterol/HDL Ratio 3.4 (3.3-4.4) Thyroid Stimulating Hormone (TSH) 0.615 uiU/mL (0.358-3.740) Erythrocyte Sedimentation Rate 112 MM/HR (0-20) H Reticulocyte Count 2.0 % (0.0-2.0) Uric Acid 5.0 MG/DL (2.6-7.2) Iron Level 8 ug/dL (50-175) L Total Iron Binding Capacity 121 ug/dL (250-450) L Percent Iron Saturation 7 % (15-50) L Unsaturated Iron Binding 113 ug/dL (112-346) Lactate Dehydrogenase 201 U/L (81-234) Total Creatine Kinase 68 U/L (26-308) Carcinoembryonic Antigen Pending Vitamin B12 Level 621 PG/ML (193-986) Folate 29.1 NG/ML (8.6-58.9) Microbiology Date/Time Source Procedure Growth Status 12/15/17 15:58 Urine,Clean Catch Urine Culture - Preliminary Gram Negative Bacillus 1 Resulted 12/15/17 17:45 Rectum VRE Culture Pending Resulted 12/15/17 17:45 Rectum - Preliminary Resulted Chalo Alfonso MD Dec 16, 2017 18:25
[2017-12-16] MEDS ORDERED: Heparin 5000 units/ml inj IV SCH ×3 (18:30→19:30)
[2017-12-16] MEDS ORDERED: Heparin 25,000u/D5W 500ml 500 ML IV SCH ×3 (18:30→19:30)
[2017-12-16] MEDS ORDERED: Nitroglycerin Subl 0.4mg tab SL PRN (18:45)
[2017-12-16] MEDS ORDERED: dilTIAZem HCl 25mg/5ml Inj IV PRN (19:00)
[2017-12-16] MEDS ORDERED: Morphine Sulfate 2mg/ml Inj IVP PRN (19:00)
[2017-12-16] MEDS ORDERED: Miralax 17gm pkt ORAL PRN (19:00)
[2017-12-16] MEDS ORDERED: Albuterol/Ipratropium 3ml neb HHN PRN (19:00)
[2017-12-16] MEDS ORDERED: Enalaprilat 2.5mg/2ml Inj IV PRN (19:00)
--- NOTE | 2017-12-16 19:02 | Consultation ---
DATE OF CONSULTATION: 12/16/2017 HISTORY OF PRESENT ILLNESS: This is a 77-year-old male, who was admitted due to altered mental status. The patient has been having recent hospitalization due to renal calculus with obstruction. The patient became feverish and presented with delirium to the emergency room. During the evaluation, the patient was unable to provide history. He has waxing and waning consciousness, cognitive impairment, has been having decreased appetite, and presented with failure to thrive. The patient also presented with episodes of agitation. PAST PSYCHIATRIC HISTORY: History of delirium in the past as well as anxiety. PAST MEDICAL HISTORY: Cerebrovascular disease, hypercholesterolemia, diabetes, CAD, and urinary tract infection. ALLERGIES: No known drug allergies. SUBSTANCE ABUSE HISTORY: No known history of illicit drug use or alcohol. MENTAL STATUS EXAMINATION: The patient is well developed and well nourished, in no acute distress. Has waxing and waning consciousness. Mood is neutral. Affect is flat. Thought process, there is a paucity of thought content. No suicidal or homicidal ideations. Cognition is impaired. ASSESSMENT: AXIS I Encephalopathy due to toxin. AXIS II Deferred. AXIS III As above. AXIS IV Low. AXIS V Global assessment of functioning is 20. PLAN: 1. The patient will be started on Haldol p.r.n. 2. We will continue to follow and readjust the medications. Aaron Arreguin M.D. DR: CAROLE JOB#: [id number] CC:
[2017-12-16 19:59] LABS: BASOPHILS % (AUTO) 0.3 % (0.0-2.0); EOSINOPHILS % (AUTO) 0.7 % (0.0-3.0); HEMATOCRIT 30.7 % (42.0-52.0); HEMOGLOBIN 10.2 G/DL (14.2-18.0); LYMPHOCYTES % (AUTO) 9.7 % (20.0-45.0); MEAN CORPUSCULAR VOLUME 90 FL (80-99); MONOCYTES % (AUTO) 5.3 % (1.0-10.0); PLATELET COUNT 210 K/UL (150-450); RED BLOOD COUNT 3.42 M/UL (4.70-6.10); RED CELL DISTRIBUTION WIDTH 12.5 % (11.6-14.8); WHITE BLOOD COUNT 9.5 K/UL (4.8-10.8)
[2017-12-16] MEDS: Tamsulosin 0.4mg cap ORAL SCH (20:26)
[2017-12-16] MEDS: Atorvastatin 80mg tab ORAL SCH (20:27)
[2017-12-16] MEDS ORDERED: Tamsulosin 0.4mg cap ORAL SCH (21:00)
[2017-12-16 22:47] LABS: APPEARANCE,URINE SLIGHTLY CLOUDY; BILIRUBIN, URINE NEGATIVE (NEGATIVE); COLOR,URINE PALE YELLOW; GLUCOSE, URINE (UA) NEGATIVE (NEGATIVE); KETONES,URINE NEGATIVE (NEGATIVE); LEUKOCYTE ESTERASE ,URINE 3+ (NEGATIVE); NITRITE,URINE NEGATIVE (NEGATIVE); PH,URINE 5 (4.5-8.0); PROTEIN,URINE 2+ (NEGATIVE); UROBILINOGEN,URINE NORMAL MG/DL (0.0-1.0)
--- NOTE | 2017-12-16 23:02 | Consultation ---
DATE OF CONSULTATION: 12/16/2017 INFECTIOUS DISEASE CONSULTATION CONSULTING PHYSICIAN: Prieto Millan M.D. REFERRING PHYSICIANS: 1. Lito Ron M.D. 2. Scott Hoover M.D. REASON FOR CONSULTATION: Evaluation of the patient for sepsis, UTI, antibiotic management. HISTORY OF PRESENT ILLNESS: The patient is a pleasant 77-year-old male with multiple medical problems as listed below, who was admitted to this medical center [facility] due to altered level of consciousness. Also, reportedly the patient has fever. Recently, the patient was admitted to [facility] for renal stone. The patient underwent stent placement. At this admission, the patient was found to have elevated troponins. The patient has been started on IV antibiotics. Urine culture is growing gram-negative rods. Infectious Disease consultation has been requested for further evaluation of the patient and antibiotic management. PAST MEDICAL HISTORY: Significant for: 1. Renal stone. 2. Hypertension. 3. CAD. 4. Diabetes. 5. BPH. 6. History of DVT. 7. History of CVA. MEDICATION: IV cefepime. ALLERGIES: No known drug allergies. SOCIAL HISTORY: The patient resides in a retirement facility. REVIEW OF SYSTEMS: HEENT: No recent change in vision or hearing. PULMONARY: No cough or shortness of breath. CARDIOVASCULAR: No chest pain or palpitation. GASTROINTESTINAL/ABDOMEN: Constipated. GENITOURINARY: As mentioned above. NEUROLOGIC: No seizure. PHYSICAL EXAMINATION: VITAL SIGNS: T-max 101.8, pulse 56, and respiratory rate 18. HEENT: No pale conjunctivae. No icterus. NECK: No lymphadenopathy. CHEST: Clear. HEART: S1 and S2. ABDOMEN: Soft. Obese. EXTREMITIES: No cyanosis at this time. NEUROLOGIC: Awake and alert. LABORATORY AND DIAGNOSTIC DATA: White blood cells 21 at the time of admission, today is 14, hemoglobin 9.2, platelets 208. Urine culture is growing gram-negative rods, 100,000 colonies. UA shows 5 to 10 white blood cells. BUN 27 and creatinine 2. ALT, AST, and alkaline phosphatase unremarkable. CT of abdomen, multiple nonobstructing renal stones bilaterally/perinephric stranding, BPH. Chest x-ray unremarkable. ASSESSMENT: The patient is a 77-year-old male with: 1. UTI. 2. Rule out bacteremia. 3. Leukocytosis. 4. Fever. 5. Sepsis. 6. Non-STEMI. 7. Anemia. PLAN: 1. We will continue the patient on IV cefepime day #1. 2. Monitor CBC and BMP. 3. Monitor cultures (blood, urine). 4. Ultrasound of the abdomen. 5. Based on the patient's clinical course and laboratories, we will do further recommendations. Thank you, Dr. Hoover and Dr. Ron for allowing me to participate in the care of this patient. I will follow the patient with you during this hospitalization. Prieto Millan M.D. DR: CAROLYN JOB#: [id number] CC:
[2017-12-16] MEDS: Cefepime HCl 1 GM in D5W 55 ML IVPB SCH (23:55)
[2017-12-17] VITALS: BP 140/85
[2017-12-17] MEDS ORDERED: Cefepime HCl 1 GM in D5W 55 ML IVPB SCH ×2
[2017-12-17 04:00] VITALS: BP 131/72
[2017-12-17] MEDS: Heparin 25,000u/D5W 500ml 500 ML IV SCH ×2 (04:05→20:34)
[2017-12-17 05:53] LABS: BASOPHILS % (AUTO) 0.2 % (0.0-2.0); EOSINOPHILS % (AUTO) 1.1 % (0.0-3.0); HEMATOCRIT 29.3 % (42.0-52.0); HEMOGLOBIN 10.1 G/DL (14.2-18.0); LYMPHOCYTES % (AUTO) 9.6 % (20.0-45.0); MEAN CORPUSCULAR VOLUME 89 FL (80-99); MONOCYTES % (AUTO) 5.8 % (1.0-10.0); NEUTROPHILS % (AUTO) 83.3 % (45.0-75.0); PLATELET COUNT 212 K/UL (150-450); RED BLOOD COUNT 3.31 M/UL (4.70-6.10); WHITE BLOOD COUNT 8.9 K/UL (4.8-10.8)
[2017-12-17 06:11] LABS: ALANINE AMINOTRANSFERASE 63 U/L (12-78); ALBUMIN 2.2 G/DL (3.4-5.0); ALBUMIN/GLOBULIN RATIO 0.6 (1.0-2.7); ALKALINE PHOSPHATASE 126 U/L (46-116); ANION GAP 8 mmol/L (5-15); ASPARTATE AMINO TRANSFERASE 72 U/L (15-37); BILIRUBIN,TOTAL 0.7 MG/DL (0.2-1.0); BLOOD UREA NITROGEN 26 mg/dL (7-18); CALCIUM 8.1 MG/DL (8.5-10.1); CARBON DIOXIDE 27 MMOL/L (21-32); CHLORIDE 108 MMOL/L (98-107); CREATININE 1.4 MG/DL (0.55-1.30); PHOSPHORUS 2.3 MG/DL (2.5-4.9); POTASSIUM 3.5 MMOL/L (3.5-5.1); SODIUM 143 MMOL/L (136-145)
--- NOTE | 2017-12-17 07:36 | Pulmonology Progress Note ---
Assessment/Plan Assessment/Plan ASSESSMENT acute hypoxemic respiratory failure requiring 100% NRM - resolved NSTEMI, silent sepsis with gram negative bacteremia urinary tract infection with Pseudomonas acute kidney injury/ATN CAD with hx of stent Hx of DVT and PE Hx of hemorrhagic CVA with left hemiparesis altered mental status nephrolithiasis status post recent ureteral stent placement/ BPH PLAN of CARE [facility] serial troponin pattern suggestive of NSTEMI , troponin downtrending EKG no acute ischemic changes no cardiac complaints per cardio- silent NSTEMI fup with with further cardio recommendation started on heparin gtt; Xarelto stopped a/PLT therapy with low dose ASA , no BB for now as per cardio statin , lipid panel DVT prophylaxis Abx; urine + Pseudomonas, blood cx + GNR IVF , monitor renal parameters, electrolytes ,corrected electrolytes prn, avoid nephrotoxics , creat trending down Swallow evaluation Venous duplex cont Flomax and Proscar discussed with and patient POC at bedside concerned when he can follow up with urologist /dr Thompson, according to her patient will need another stent , prior unsuccessful? had dr Thompson contact number case discussed and evaluated by supervising physician Subjective Allergies: Coded Allergies: No Known Allergies (Unverified , 12/15/17) Subjective transferred to [facility] on heparin gtt pulse ox stable on 3L of O2 denies chest pain, SOB creat trending down Objective Last 24 Hour Vital Signs Date Time Temp Pulse Resp B/P (MAP) Pulse Ox O2 Delivery O2 Flow Rate FiO2 12/17/17 04:00 98.5 66 18 131/72 (91) 97 12/17/17 04:00 Nasal Cannula 3.0 12/17/17 03:39 58 12/17/17 00:00 98.2 70 20 140/85 (103) 97 12/17/17 00:00 Nasal Cannula 3.0 12/16/17 23:51 Nasal Cannula 3.0 32 12/16/17 23:51 97 Nasal Cannula 3.0 32 12/16/17 23:50 63 20 Nasal Cannula 3.0 32 12/16/17 23:44 65 12/16/17 20:00 Nasal Cannula 3.0 12/16/17 20:00 98.5 70 20 148/76 (100) 98 12/16/17 19:42 64 12/16/17 18:13 67 12/16/17 17:00 79 22 137/71 (93) 97 12/16/17 16:00 98.4 69 21 138/66 (90) 97 12/16/17 16:00 Nasal Cannula 3.0 12/16/17 16:00 75 12/16/17 15:00 79 20 132/74 (93) 97 12/16/17 14:00 81 18 135/79 (97) 97 12/16/17 13:00 73 17 132/77 (95) 97 12/16/17 12:00 Nasal Cannula 3.0 12/16/17 12:00 98.6 74 17 112/65 (81) 98 12/16/17 12:00 59 12/16/17 11:00 59 16 106/65 (79) 98 12/16/17 10:00 77 17 134/72 (92) 96 12/16/17 09:00 74 17 127/72 (90) 95 12/16/17 08:00 Nasal Cannula 3.0 12/16/17 08:00 76 12/16/17 08:00 98.2 74 17 131/71 (91) 95 12/16/17 07:43 98 Nasal Cannula 3.0 32 12/16/17 07:43 Nasal Cannula 3.0 32 12/16/17 07:43 76 16 Nasal Cannula 3.0 32 Intake and Output 12/16/17 12/17/17 18:59 06:59 Intake Total 1145 ml 837.73 ml Output Total 130 ml 300 ml Balance 1015 ml 537.73 ml Intake Oral 320 ml 100 ml IV Total 825 ml 737.73 ml Output Urine Total 130 ml 300 ml # Voids 4 4 # Bowel Movements 5 2 General Appearance: no acute distress, other - awake, alert, oriented HEENT: normocephalic, atraumatic, anicteric, mucous membranes moist Respiratory/Chest: lungs clear, no respiratory distress, no accessory muscle use Cardiovascular: no JVD, bradycardia - in 50th Abdomen: soft, non tender, non distended Extremities: other - L foot drop + 1 edema, Neurologic/Psychiatric: abnormal gait, alert, oriented x 3, responsive, normal mood/affect, other - left hemiparesis Musculoskeletal: atrophy - BLE Microbiology Date/Time Source Procedure Growth Status 12/15/17 15:50 Blood Blood Culture - Preliminary Gram Negative Boo Resulted 12/16/17 17:25 Urine,Clean Catch Urine Culture - Preliminary NO GROWTH Resulted 12/15/17 15:58 Urine,Clean Catch Urine Culture - Final Pseudomonas Aeruginosa Complete 12/15/17 17:45 Rectum VRE Culture - Final Enterococcus Faecium - Vre Complete 12/15/17 17:45 Rectum - Final NO CARBAPENEM-RESISTANT ENTEROBACTERI... Complete Laboratory Tests 12/16/17 11:20: Erythrocyte Sedimentation Rate 112H, Reticulocyte Count 2.0, Prothrombin Time 11.9H, Prothromb Time International Ratio 1.1, Activated Partial Thromboplast Time 40H, Uric Acid 5.0, Iron Level 8L, Total Iron Binding Capacity 121L, Percent Iron Saturation 7L, Unsaturated Iron Binding 113, Lactate Dehydrogenase 201, Total Creatine Kinase 68, Carcinoembryonic Antigen [Pending], Vitamin B12 Level 621, Folate 29.1 12/16/17 15:18: Troponin I 1.875H 12/16/17 17:25: Urine Color Pale yellow, Urine Appearance Slightly cloudy, Urine pH 5, Urine Specific [place] 1.015, Urine Protein 2+H, Urine Glucose (UA) Negative, Urine Ketones Negative, Urine Blood 5+H, Urine Nitrite Negative, Urine Bilirubin Negative, Urine Urobilinogen Normal, Urine Leukocyte Esterase 3+H, Urine RBC 40- 60H, Urine WBC 10-15H, Urine Squamous Epithelial Cells None, Urine Bacteria Few , Urine Eosinophils None seen, Urine Random Sodium 97, Urine Potassium Timed 26 12/16/17 19:50: Activated Partial Thromboplast Time 39H, White Blood Count 9.5, Red Blood Count 3.42L, Hemoglobin 10.2L, Hematocrit 30.7L, Mean Corpuscular Volume 90, Mean Corpuscular Hemoglobin 29.7, Mean Corpuscular Hemoglobin Concent 33.1, Red Cell Distribution Width 12.5, Platelet Count 210, Mean Platelet Volume 6.1L, Neutrophils (%) (Auto) 84.0H, Lymphocytes (%) (Auto) 9.7L, Monocytes (%) (Auto) 5.3, Eosinophils (%) (Auto) 0.7, Basophils (%) (Auto) 0.3 12/17/17 02:44: Activated Partial Thromboplast Time 105H 12/17/17 04:00: White Blood Count 8.9, Red Blood Count 3.31L, Hemoglobin 10.1L, Hematocrit 29.3L , Mean Corpuscular Volume 89, Mean Corpuscular Hemoglobin 30.4, Mean Corpuscular Hemoglobin Concent 34.3, Red Cell Distribution Width 13.0, Platelet Count 212, Mean Platelet Volume 6.6, Neutrophils (%) (Auto) 83.3H, Lymphocytes ( %) (Auto) 9.6L, Monocytes (%) (Auto) 5.8, Eosinophils (%) (Auto) 1.1, Basophils (%) (Auto) 0.2, Sodium Level 143, Potassium Level 3.5, Chloride Level 108H, Carbon Dioxide Level 27, Anion Gap 8, Blood Urea Nitrogen 26H, Creatinine 1.4H, Estimat Glomerular Filtration Rate , Glucose Level 124H, Calcium Level 8.1L, Phosphorus Level 2.3L, Magnesium Level 1.7L, Total Bilirubin 0.7, Aspartate Amino Transf (AST/SGOT) 72H, Alanine Aminotransferase (ALT/SGPT) 63, Alkaline Phosphatase 126H, Troponin I 1.595H, Total Protein 6.1L, Albumin 2.2L, Globulin 3.9, Albumin/Globulin Ratio 0.6L Current Medications Medications (Trade) Dose Ordered Sig/Denisa Route PRN Reason Start Time Stop Time Status Last Admin Dose Admin Acetaminophen (Tylenol) 650 mg Q4H PRN ORAL FEVER (temp>100.5F) 12/16/17 19:00 01/14/18 18:59 Albuterol/ Ipratropium (Albuterol/ Ipratropium) 3 ml Q4H PRN HHN Shortness of Breath 12/16/17 19:00 12/20/17 18:59 Aspirin (ASA) 81 mg DAILY ORAL 12/17/17 09:00 01/15/18 08:59 Atorvastatin Calcium (Lipitor) 80 mg BEDTIME ORAL 12/16/17 21:00 01/14/18 20:59 12/16/17 20:27 Cefepime HCl 1 gm/ Dextrose 55 ml @ 110 mls/hr Q24H IVPB 12/17/17 00:00 12/24/17 00:00 12/16/17 23:55 Diltiazem HCl (Cardizem) 10 mg Q1H PRN IV heart rate more than 120bpm 12/16/17 19:00 01/14/18 18:59 Enalaprilat (Vasotec) 2.5 mg Q6H PRN IV sbp more than 160mmHg 12/16/17 19:00 01/14/18 18:59 EZETIMIBE (Zetia) 10 mg BEDTIME ORAL 12/16/17 21:00 01/15/18 20:59 12/16/17 20:27 Finasteride (Proscar) 5 mg DAILY ORAL 12/17/17 09:00 01/16/18 08:59 Gabapentin (Neurontin) 300 mg THREE TIMES A DAY ORAL 12/17/17 09:00 01/15/18 12:59 Heparin Sodium/ Dextrose 500 ml @ 18.609 mls/ hr ADJUST PER PROTOCOL IV 12/17/17 04:00 01/16/18 03:59 12/17/17 04:05 Morphine Sulfate (Morphine Sulfate) 2 mg Q4H PRN IVP severe Pain (Pain Scale 7-10) 12/16/17 19:00 12/22/17 18:59 Nitroglycerin (Ntg) 0.4 mg Q5M PRN SL Prn Chest Pain 12/16/17 18:45 01/14/18 18:59 Ondansetron HCl (Zofran) 4 mg Q6H PRN IVP Nausea & Vomiting 12/16/17 19:00 01/14/18 18:59 Polyethylene Glycol (Miralax) 17 gm DAILYPRN PRN ORAL Constipation 12/16/17 19:00 01/14/18 18:59 Sodium Chloride 1,000 ml @ 75 mls/hr [id number] IV 12/16/17 18:45 01/15/18 03:59 12/16/17 19:41 Tamsulosin HCl (Flomax) 0.4 mg BEDTIME ORAL 12/16/17 21:00 01/15/18 20:59 12/16/17 20:26 Temazepam (Restoril) 15 mg HSPRN PRN ORAL Insomnia 12/16/17 19:00 12/22/17 18:59 12/17/17 02:40 Tiffany Gillis ASSISTED LIVING ASSISTANT Dec 17, 2017 07:36
[2017-12-17 07:54] VITALS: BP 143/79
[2017-12-17] MEDS: Aspirin Baby 81mg ORAL SCH (08:40)
--- NOTE | 2017-12-17 11:02 | Infectious Diseases Prog Note ---
Assessment/Plan Assessment/Plan ASSESSMENT: The patient is a 77-year-old male with: -. Sepsis 2ry to UTI c/w bacteremia -ucx PsA (finch S); repeat ucx NTD -12/15 Bcx 02/10 GNR -CT abd/p: Multiple nonobstructive stones within both kidneys as described above. Right ureteral stent in good position. No hydronephrosis. Perinephric stranding nonspecific. Moderate fecal retention. Prostate hypertrophy.Gallstones versus sludge. -. Leukocytosis, SP -. Fever, improvinng -. Non-STEMI. -. Anemia. . Renal stone s/p recent stent . Hypertension. . CAD. . Diabetes. . BPH. . History of DVT. . History of CVA. VRE colonized PLAN: 1. We will continue the patient on IV cefepime day #2 pending ID and sensi GNR Bcx -if susceptible to Levaquin will switch to it 2. Monitor CBC and BMP. 3. Monitor cultures (blood, urine). Repeat Bcx x2 4. Based on the patient's clinical course and laboratories, we will do further recommendations. Thank you, Dr. Hoover and Dr. Ron for allowing me to participate in the care of this patient. I will follow the patient with you during this hospitalization. Subjective Allergies: Coded Allergies: No Known Allergies (Unverified , 12/15/17) Subjective afebrile > 36hrs no leukocytosis bacteremic Objective Vital Signs Last 24 Hour Vital Signs Date Time Temp Pulse Resp B/P (MAP) Pulse Ox O2 Delivery O2 Flow Rate FiO2 12/17/17 08:58 59 12/17/17 08:19 71 16 Nasal Cannula 3.0 32 12/17/17 08:19 Nasal Cannula 3.0 32 12/17/17 08:19 98 Nasal Cannula 3.0 32 12/17/17 08:00 Nasal Cannula 3.0 12/17/17 07:54 97.7 63 18 143/79 (100) 96 12/17/17 04:00 98.5 66 18 131/72 (91) 97 12/17/17 04:00 Nasal Cannula 3.0 12/17/17 03:39 58 12/17/17 00:00 98.2 70 20 140/85 (103) 97 12/17/17 00:00 Nasal Cannula 3.0 12/16/17 23:51 Nasal Cannula 3.0 32 12/16/17 23:51 97 Nasal Cannula 3.0 32 12/16/17 23:50 63 20 Nasal Cannula 3.0 32 12/16/17 23:44 65 12/16/17 20:00 Nasal Cannula 3.0 12/16/17 20:00 98.5 70 20 148/76 (100) 98 12/16/17 19:42 64 12/16/17 18:13 67 12/16/17 17:00 79 22 137/71 (93) 97 12/16/17 16:00 98.4 69 21 138/66 (90) 97 12/16/17 16:00 Nasal Cannula 3.0 12/16/17 16:00 75 12/16/17 15:00 79 20 132/74 (93) 97 12/16/17 14:00 81 18 135/79 (97) 97 12/16/17 13:00 73 17 132/77 (95) 97 12/16/17 12:00 Nasal Cannula 3.0 12/16/17 12:00 98.6 74 17 112/65 (81) 98 12/16/17 12:00 59 12/16/17 11:00 59 16 106/65 (79) 98 Height (Feet): 5 Height (Inches): 7.00 Weight (Pounds): 204 Objective HEENT: No pale conjunctivae. No icterus. NECK: No lymphadenopathy. CHEST: Clear. HEART: S1 and S2. ABDOMEN: Soft. Obese. EXTREMITIES: No cyanosis at this time. NEUROLOGIC: Awake and alert. Microbiology Date/Time Source Procedure Growth Status 12/15/17 16:05 Blood Blood Culture - Preliminary NO GROWTH AFTER 24 HOURS Resulted 12/15/17 15:50 Blood Blood Culture - Preliminary Gram Negative Boo Resulted 12/15/17 17:45 Nasal Nares MRSA Culture - Final NO METHICILLIN RESISTANT STAPH AUREUS... Complete 12/16/17 17:25 Urine,Clean Catch Urine Culture - Preliminary NO GROWTH Resulted 12/15/17 15:58 Urine,Clean Catch Urine Culture - Final Pseudomonas Aeruginosa Complete 12/15/17 17:45 Rectum VRE Culture - Final Enterococcus Faecium - Vre Complete 12/15/17 17:45 Rectum - Final NO CARBAPENEM-RESISTANT ENTEROBACTERI... Complete Laboratory Tests Test 12/16/17 11:20 12/16/17 15:18 12/16/17 17:25 12/16/17 19:50 Erythrocyte Sedimentation Rate 112 MM/HR (0-20) H Reticulocyte Count 2.0 % (0.0-2.0) Prothrombin Time 11.9 SEC (9.30-11.50) H Prothromb Time International Ratio 1.1 (0.9-1.1) Activated Partial Thromboplast Time 40 SEC (23-33) H 39 SEC (23-33) H Uric Acid 5.0 MG/DL (2.6-7.2) Iron Level 8 ug/dL (50-175) L Total Iron Binding Capacity 121 ug/dL (250-450) L Percent Iron Saturation 7 % (15-50) L Unsaturated Iron Binding 113 ug/dL (112-346) Lactate Dehydrogenase 201 U/L (81-234) Total Creatine Kinase 68 U/L (26-308) Carcinoembryonic Antigen Pending Vitamin B12 Level 621 PG/ML (193-986) Folate 29.1 NG/ML (8.6-58.9) Troponin I 1.875 ng/mL (0.000-0.056) Urine Color Pale yellow Urine Appearance Slightly cloudy Urine pH 5 (4.5-8.0) Urine Specific [place] 1.015 (1.005-1.035) Urine Protein 2+ (NEGATIVE) H Urine Glucose (UA) Negative (NEGATIVE) Urine Ketones Negative (NEGATIVE) Urine Blood 5+ (NEGATIVE) H Urine Nitrite Negative (NEGATIVE) Urine Bilirubin Negative (NEGATIVE) Urine Urobilinogen Normal MG/DL (0.0-1.0) Urine Leukocyte Esterase 3+ (NEGATIVE) H Urine RBC 40-60 /HPF (0 - 0) H Urine WBC 10-15 /HPF (0 - 0) H Urine Squamous Epithelial Cells None /LPF (NONE/OCC) Urine Bacteria Few /HPF (NONE) Urine Eosinophils None seen (NONE SEEN) Urine Random Sodium 97 mmol/L (20-110) Urine Potassium Timed 26 mmol/L (12-62) White Blood Count 9.5 K/UL (4.8-10.8) Red Blood Count 3.42 M/UL (4.70-6.10) L Hemoglobin 10.2 G/DL (14.2-18.0) L Hematocrit 30.7 % (42.0-52.0) L Mean Corpuscular Volume 90 FL (80-99) Mean Corpuscular Hemoglobin 29.7 PG (27.0-31.0) Mean Corpuscular Hemoglobin Concent 33.1 G/DL (32.0-36.0) Red Cell Distribution Width 12.5 % (11.6-14.8) Platelet Count 210 K/UL (150-450) Mean Platelet Volume 6.1 FL (6.5-10.1) L Neutrophils (%) (Auto) 84.0 % (45.0-75.0) H Lymphocytes (%) (Auto) 9.7 % (20.0-45.0) L Monocytes (%) (Auto) 5.3 % (1.0-10.0) Eosinophils (%) (Auto) 0.7 % (0.0-3.0) Basophils (%) (Auto) 0.3 % (0.0-2.0) Test 12/17/17 02:44 12/17/17 04:00 12/17/17 08:34 12/17/17 10:00 Activated Partial Thromboplast Time 105 SEC (23-33) H 84 SEC (23-33) H White Blood Count 8.9 K/UL (4.8-10.8) Red Blood Count 3.31 M/UL (4.70-6.10) L Hemoglobin 10.1 G/DL (14.2-18.0) L Hematocrit 29.3 % (42.0-52.0) L Mean Corpuscular Volume 89 FL (80-99) Mean Corpuscular Hemoglobin 30.4 PG (27.0-31.0) Mean Corpuscular Hemoglobin Concent 34.3 G/DL (32.0-36.0) Red Cell Distribution Width 13.0 % (11.6-14.8) Platelet Count 212 K/UL (150-450) Mean Platelet Volume 6.6 FL (6.5-10.1) Neutrophils (%) (Auto) 83.3 % (45.0-75.0) H Lymphocytes (%) (Auto) 9.6 % (20.0-45.0) L Monocytes (%) (Auto) 5.8 % (1.0-10.0) Eosinophils (%) (Auto) 1.1 % (0.0-3.0) Basophils (%) (Auto) 0.2 % (0.0-2.0) Sodium Level 143 MMOL/L (136-145) Potassium Level 3.5 MMOL/L (3.5-5.1) Chloride Level 108 MMOL/L (98-107) H Carbon Dioxide Level 27 MMOL/L (21-32) Anion Gap 8 mmol/L (5-15) Blood Urea Nitrogen 26 mg/dL (7-18) H Creatinine 1.4 MG/DL (0.55-1.30) H Estimat Glomerular Filtration Rate mL/min (>60) Glucose Level 124 MG/DL (74-106) H Calcium Level 8.1 MG/DL (8.5-10.1) L Phosphorus Level 2.3 MG/DL (2.5-4.9) L Magnesium Level 1.7 MG/DL (1.8-2.4) L Total Bilirubin 0.7 MG/DL (0.2-1.0) Aspartate Amino Transf (AST/SGOT) 72 U/L (15-37) H Alanine Aminotransferase (ALT/SGPT) 63 U/L (12-78) Alkaline Phosphatase 126 U/L (46-116) H Troponin I 1.595 ng/mL (0.000-0.056) Total Protein 6.1 G/DL (6.4-8.2) L Albumin 2.2 G/DL (3.4-5.0) L Globulin 3.9 g/dL Albumin/Globulin Ratio 0.6 (1.0-2.7) L Stool Occult Blood Pending Current Medications Medications (Trade) Dose Ordered Sig/Denisa Route PRN Reason Start Time Stop Time Status Last Admin Dose Admin Acetaminophen (Tylenol) 650 mg Q4H PRN ORAL FEVER (temp>100.5F) 12/16/17 19:00 01/14/18 18:59 Albuterol/ Ipratropium (Albuterol/ Ipratropium) 3 ml Q4H PRN HHN Shortness of Breath 12/16/17 19:00 12/20/17 18:59 Aspirin (ASA) 81 mg DAILY ORAL 12/17/17 09:00 01/15/18 08:59 12/17/17 08:40 Atorvastatin Calcium (Lipitor) 80 mg BEDTIME ORAL 12/16/17 21:00 01/14/18 20:59 12/16/17 20:27 Cefepime HCl 1 gm/ Dextrose 55 ml @ 110 mls/hr Q24H IVPB 12/17/17 00:00 12/24/17 00:00 12/16/17 23:55 Diltiazem HCl (Cardizem) 10 mg Q1H PRN IV heart rate more than 120bpm 12/16/17 19:00 01/14/18 18:59 Enalaprilat (Vasotec) 2.5 mg Q6H PRN IV sbp more than 160mmHg 12/16/17 19:00 01/14/18 18:59 EZETIMIBE (Zetia) 10 mg BEDTIME ORAL 12/16/17 21:00 01/15/18 20:59 12/16/17 20:27 Famotidine (Pepcid I.v.) 20 mg Q12HR IVP 12/17/17 09:00 01/16/18 08:59 12/17/17 08:41 Finasteride (Proscar) 5 mg DAILY ORAL 12/17/17 09:00 01/16/18 08:59 12/17/17 08:40 Gabapentin (Neurontin) 300 mg THREE TIMES A DAY ORAL 12/17/17 09:00 01/15/18 12:59 12/17/17 08:42 Heparin Sodium/ Dextrose 500 ml @ 18.609 mls/ hr ADJUST PER PROTOCOL IV 12/17/17 04:00 01/16/18 03:59 12/17/17 04:05 Morphine Sulfate (Morphine Sulfate) 2 mg Q4H PRN IVP severe Pain (Pain Scale 7-10) 12/16/17 19:00 12/22/17 18:59 Nitroglycerin (Ntg) 0.4 mg Q5M PRN SL Prn Chest Pain 12/16/17 18:45 01/14/18 18:59 Ondansetron HCl (Zofran) 4 mg Q6H PRN IVP Nausea & Vomiting 12/16/17 19:00 01/14/18 18:59 Polyethylene Glycol (Miralax) 17 gm DAILYPRN PRN ORAL Constipation 12/16/17 19:00 01/14/18 18:59 Sodium Chloride 1,000 ml @ 75 mls/hr [id number] IV 12/16/17 18:45 01/15/18 03:59 12/17/17 08:42 Tamsulosin HCl (Flomax) 0.4 mg BEDTIME ORAL 12/16/17 21:00 01/15/18 20:59 12/16/17 20:26 Temazepam (Restoril) 15 mg HSPRN PRN ORAL Insomnia 12/16/17 19:00 12/22/17 18:59 12/17/17 02:40 Candace Velazquez M.D. Dec 17, 2017 11:02
[2017-12-17 12:00] VITALS: BP 138/76
--- NOTE | 2017-12-17 14:18 | Cardiology Progress Note ---
Assessment/Plan Problem List: (1) NSTEMI (non-ST elevated myocardial infarction) (2) CVA, old, hemiparesis (3) Chronic anticoagulation (4) Sepsis Status: stable, progressing Status Narrative Mr. Pulliam is a 77 yo man with hx of CAD, previous stents, DVT/ PE, and CVA, w / L hemiparesis, who underwent urologic procedure last week. He is readmitted w / UTI and acute non-STEMI. Troponin peak at 6, and EKG shows no acute ST changes. ECHO was technically difficult study, w/ EF reported at 50% and no WMA reported. Troponins are downtrending. WBC improving, on iv antibiotics. LE duplex was negative for DVT today Assessment/Plan Continue asa, statin and start b blockers. Hold xarelto, and continue heparin anticoagulation Continue antibiotics for UTI Plan for transfer to [facility] for cath , possible PCI Subjective ROS Limited/Unobtainable: Yes Subjective Cardiology/ Coverage for Dr. Alfonso Pt sedated. Pt pt's , he had no CP , abd pain or dyspnea earlier today. Objective Last 24 Hour Vital Signs Date Time Temp Pulse Resp B/P (MAP) Pulse Ox O2 Delivery O2 Flow Rate FiO2 12/17/17 12:00 49 12/17/17 12:00 98.4 54 18 138/76 (96) 99 12/17/17 12:00 Nasal Cannula 3.0 12/17/17 08:58 59 12/17/17 08:19 71 16 Nasal Cannula 3.0 32 12/17/17 08:19 Nasal Cannula 3.0 32 12/17/17 08:19 98 Nasal Cannula 3.0 32 12/17/17 08:00 Nasal Cannula 3.0 12/17/17 07:54 97.7 63 18 143/79 (100) 96 12/17/17 04:00 98.5 66 18 131/72 (91) 97 12/17/17 04:00 Nasal Cannula 3.0 12/17/17 03:39 58 12/17/17 00:00 98.2 70 20 140/85 (103) 97 12/17/17 00:00 Nasal Cannula 3.0 12/16/17 23:51 Nasal Cannula 3.0 32 12/16/17 23:51 97 Nasal Cannula 3.0 32 12/16/17 23:50 63 20 Nasal Cannula 3.0 32 12/16/17 23:44 65 12/16/17 20:00 Nasal Cannula 3.0 12/16/17 20:00 98.5 70 20 148/76 (100) 98 12/16/17 19:42 64 12/16/17 18:13 67 12/16/17 17:00 79 22 137/71 (93) 97 12/16/17 16:00 98.4 69 21 138/66 (90) 97 12/16/17 16:00 Nasal Cannula 3.0 12/16/17 16:00 75 12/16/17 15:00 79 20 132/74 (93) 97 General Appearance: WD/WN, lethargic EENT: PERRL/EOMI Neck: non-tender, no JVD Rhythm: NSR Cardiovascular: normal rate, regular rhythm, no gallop/murmur Respiratory/Chest: lungs clear, other - clear anteriorly Abdomen: normal bowel sounds, non tender, soft Extremities: no swelling - LUE 0/5 motor, L LE 1/5 Intake and Output 12/16/17 12/17/17 19:00 07:00 Intake Total 1070 ml 860.06 ml Output Total 130 ml 300 ml Balance 940 ml 560.06 ml Intake Oral 320 ml 100 ml IV Total 750 ml 760.06 ml Output Urine Total 130 ml 300 ml # Voids 4 4 # Bowel Movements 5 2 Laboratory Tests Test 12/16/17 15:18 12/16/17 17:25 12/16/17 19:50 12/17/17 02:44 Troponin I 1.875 ng/mL (0.000-0.056) Urine Color Pale yellow Urine Appearance Slightly cloudy Urine pH 5 (4.5-8.0) Urine Specific [place] 1.015 (1.005-1.035) Urine Protein 2+ (NEGATIVE) H Urine Glucose (UA) Negative (NEGATIVE) Urine Ketones Negative (NEGATIVE) Urine Blood 5+ (NEGATIVE) H Urine Nitrite Negative (NEGATIVE) Urine Bilirubin Negative (NEGATIVE) Urine Urobilinogen Normal MG/DL (0.0-1.0) Urine Leukocyte Esterase 3+ (NEGATIVE) H Urine RBC 40-60 /HPF (0 - 0) H Urine WBC 10-15 /HPF (0 - 0) H Urine Squamous Epithelial Cells None /LPF (NONE/OCC) Urine Bacteria Few /HPF (NONE) Urine Eosinophils None seen (NONE SEEN) Urine Random Sodium 97 mmol/L (20-110) Urine Potassium Timed 26 mmol/L (12-62) White Blood Count 9.5 K/UL (4.8-10.8) Red Blood Count 3.42 M/UL (4.70-6.10) L Hemoglobin 10.2 G/DL (14.2-18.0) L Hematocrit 30.7 % (42.0-52.0) L Mean Corpuscular Volume 90 FL (80-99) Mean Corpuscular Hemoglobin 29.7 PG (27.0-31.0) Mean Corpuscular Hemoglobin Concent 33.1 G/DL (32.0-36.0) Red Cell Distribution Width 12.5 % (11.6-14.8) Platelet Count 210 K/UL (150-450) Mean Platelet Volume 6.1 FL (6.5-10.1) L Neutrophils (%) (Auto) 84.0 % (45.0-75.0) H Lymphocytes (%) (Auto) 9.7 % (20.0-45.0) L Monocytes (%) (Auto) 5.3 % (1.0-10.0) Eosinophils (%) (Auto) 0.7 % (0.0-3.0) Basophils (%) (Auto) 0.3 % (0.0-2.0) Activated Partial Thromboplast Time 39 SEC (23-33) H 105 SEC (23-33) H Test 12/17/17 04:00 12/17/17 08:34 12/17/17 10:00 White Blood Count 8.9 K/UL (4.8-10.8) Red Blood Count 3.31 M/UL (4.70-6.10) L Hemoglobin 10.1 G/DL (14.2-18.0) L Hematocrit 29.3 % (42.0-52.0) L Mean Corpuscular Volume 89 FL (80-99) Mean Corpuscular Hemoglobin 30.4 PG (27.0-31.0) Mean Corpuscular Hemoglobin Concent 34.3 G/DL (32.0-36.0) Red Cell Distribution Width 13.0 % (11.6-14.8) Platelet Count 212 K/UL (150-450) Mean Platelet Volume 6.6 FL (6.5-10.1) Neutrophils (%) (Auto) 83.3 % (45.0-75.0) H Lymphocytes (%) (Auto) 9.6 % (20.0-45.0) L Monocytes (%) (Auto) 5.8 % (1.0-10.0) Eosinophils (%) (Auto) 1.1 % (0.0-3.0) Basophils (%) (Auto) 0.2 % (0.0-2.0) Sodium Level 143 MMOL/L (136-145) Potassium Level 3.5 MMOL/L (3.5-5.1) Chloride Level 108 MMOL/L (98-107) H Carbon Dioxide Level 27 MMOL/L (21-32) Anion Gap 8 mmol/L (5-15) Blood Urea Nitrogen 26 mg/dL (7-18) H Creatinine 1.4 MG/DL (0.55-1.30) H Estimat Glomerular Filtration Rate mL/min (>60) Glucose Level 124 MG/DL (74-106) H Calcium Level 8.1 MG/DL (8.5-10.1) L Phosphorus Level 2.3 MG/DL (2.5-4.9) L Magnesium Level 1.7 MG/DL (1.8-2.4) L Total Bilirubin 0.7 MG/DL (0.2-1.0) Aspartate Amino Transf (AST/SGOT) 72 U/L (15-37) H Alanine Aminotransferase (ALT/SGPT) 63 U/L (12-78) Alkaline Phosphatase 126 U/L (46-116) H Troponin I 1.595 ng/mL (0.000-0.056) Total Protein 6.1 G/DL (6.4-8.2) L Albumin 2.2 G/DL (3.4-5.0) L Globulin 3.9 g/dL Albumin/Globulin Ratio 0.6 (1.0-2.7) L Stool Occult Blood Pending Activated Partial Thromboplast Time 84 SEC (23-33) H Microbiology Date/Time Source Procedure Growth Status 12/15/17 16:05 Blood Blood Culture - Preliminary NO GROWTH AFTER 24 HOURS Resulted 12/15/17 15:50 Blood Blood Culture - Preliminary Gram Negative Boo Resulted 12/15/17 17:45 Nasal Nares MRSA Culture - Final NO METHICILLIN RESISTANT STAPH AUREUS... Complete 12/16/17 17:25 Urine,Clean Catch Urine Culture - Preliminary NO GROWTH Resulted 12/15/17 15:58 Urine,Clean Catch Urine Culture - Final Pseudomonas Aeruginosa Complete 12/15/17 17:45 Rectum VRE Culture - Final Enterococcus Faecium - Vre Complete 12/15/17 17:45 Rectum - Final NO CARBAPENEM-RESISTANT ENTEROBACTERI... Complete Judy Shearer MD Dec 17, 2017 14:18
--- NOTE | 2017-12-17 15:15 | Cardiology Report ---
APPROVED REPORT EKG Measurement Heart [id number] ID [id number] Normal sinus rhythm Low voltage QRS Inferior infarct, age undetermined Abnormal ECG
--- NOTE | 2017-12-17 15:16 | Cardiology Report ---
APPROVED REPORT EKG Measurement Heart [id number] Sinus tachycardia Possible Lateral infarct, age undetermined Possible Inferior infarct, age undetermined Abnormal ECG
--- NOTE | 2017-12-17 15:16 | Cardiology Report ---
APPROVED REPORT EKG Measurement Heart [id number] Normal sinus rhythm Anterolateral infarct, age undetermined Abnormal ECG
[2017-12-17 16:00] VITALS: BP 141/67
--- NOTE | 2017-12-17 18:36 | Internal Med Progress Note ---
Subjective Date of Service: Dec 17, 2017 Physician Name Mehdi Blair Attending Physician Lito Ron MD Current Medications Medications (Trade) Dose Ordered Sig/Denisa Route PRN Reason Start Time Stop Time Status Last Admin Dose Admin Acetaminophen (Tylenol) 650 mg Q4H PRN ORAL Mild Pain/Temp > 100.5 12/17/17 15:00 01/16/18 14:59 Albuterol/ Ipratropium (Albuterol/ Ipratropium) 3 ml Q4H PRN HHN Shortness of Breath 12/16/17 19:00 12/20/17 18:59 Aspirin (ASA) 81 mg DAILY ORAL 12/17/17 09:00 01/15/18 08:59 12/17/17 08:40 Atorvastatin Calcium (Lipitor) 80 mg BEDTIME ORAL 12/16/17 21:00 01/14/18 20:59 12/16/17 20:27 Cefepime HCl 1 gm/ Dextrose 55 ml @ 110 mls/hr Q24H IVPB 12/17/17 00:00 12/24/17 00:00 12/16/17 23:55 Diltiazem HCl (Cardizem) 10 mg Q1H PRN IV heart rate more than 120bpm 12/16/17 19:00 01/14/18 18:59 Enalaprilat (Vasotec) 2.5 mg Q6H PRN IV sbp more than 160mmHg 12/16/17 19:00 01/14/18 18:59 EZETIMIBE (Zetia) 10 mg BEDTIME ORAL 12/16/17 21:00 01/15/18 20:59 12/16/17 20:27 Famotidine (Pepcid I.v.) 20 mg Q12HR IVP 12/17/17 09:00 01/16/18 08:59 12/17/17 08:41 Finasteride (Proscar) 5 mg DAILY ORAL 12/17/17 09:00 01/16/18 08:59 12/17/17 08:40 Gabapentin (Neurontin) 300 mg THREE TIMES A DAY ORAL 12/17/17 09:00 01/15/18 12:59 12/17/17 17:18 Heparin Sodium/ Dextrose 500 ml @ 18.609 mls/ hr ADJUST PER PROTOCOL IV 12/17/17 04:00 01/16/18 03:59 12/17/17 04:05 Morphine Sulfate (Morphine Sulfate) 2 mg Q4H PRN IVP severe Pain (Pain Scale 7-10) 12/16/17 19:00 12/22/17 18:59 Nitroglycerin (Ntg) 0.4 mg Q5M PRN SL Prn Chest Pain 12/16/17 18:45 01/14/18 18:59 Ondansetron HCl (Zofran) 4 mg Q6H PRN IVP Nausea & Vomiting 12/16/17 19:00 01/14/18 18:59 Polyethylene Glycol (Miralax) 17 gm DAILYPRN PRN ORAL Constipation 12/16/17 19:00 01/14/18 18:59 Sodium Chloride 1,000 ml @ 75 mls/hr [id number] IV 12/16/17 18:45 01/15/18 03:59 12/17/17 08:42 Tamsulosin HCl (Flomax) 0.4 mg BEDTIME ORAL 12/16/17 21:00 01/15/18 20:59 12/16/17 20:26 Temazepam (Restoril) 15 mg HSPRN PRN ORAL Insomnia 12/16/17 19:00 12/22/17 18:59 12/17/17 02:40 Allergies: Coded Allergies: No Known Allergies (Unverified , 12/15/17) ROS Limited/Unobtainable: Yes Subjective 77 YO M admitted with altered mental status. Now NSTEMI. Await transfer to [facility] for cardiac cath. Cover for Int Justin-Dr Ron Objective Last Vital Signs Date Time Temp Pulse Resp B/P (MAP) Pulse Ox O2 Delivery O2 Flow Rate FiO2 12/17/17 16:00 48 12/17/17 16:00 97.8 19 141/67 (91) 99 12/17/17 16:00 Nasal Cannula 3.0 12/17/17 08:19 32 Laboratory Tests Test 12/16/17 19:50 12/17/17 02:44 12/17/17 04:00 12/17/17 08:34 White Blood Count 9.5 K/UL (4.8-10.8) 8.9 K/UL (4.8-10.8) Red Blood Count 3.42 M/UL (4.70-6.10) L 3.31 M/UL (4.70-6.10) L Hemoglobin 10.2 G/DL (14.2-18.0) L 10.1 G/DL (14.2-18.0) L Hematocrit 30.7 % (42.0-52.0) L 29.3 % (42.0-52.0) L Mean Corpuscular Volume 90 FL (80-99) 89 FL (80-99) Mean Corpuscular Hemoglobin 29.7 PG (27.0-31.0) 30.4 PG (27.0-31.0) Mean Corpuscular Hemoglobin Concent 33.1 G/DL (32.0-36.0) 34.3 G/DL (32.0-36.0) Red Cell Distribution Width 12.5 % (11.6-14.8) 13.0 % (11.6-14.8) Platelet Count 210 K/UL (150-450) 212 K/UL (150-450) Mean Platelet Volume 6.1 FL (6.5-10.1) L 6.6 FL (6.5-10.1) Neutrophils (%) (Auto) 84.0 % (45.0-75.0) H 83.3 % (45.0-75.0) H Lymphocytes (%) (Auto) 9.7 % (20.0-45.0) L 9.6 % (20.0-45.0) L Monocytes (%) (Auto) 5.3 % (1.0-10.0) 5.8 % (1.0-10.0) Eosinophils (%) (Auto) 0.7 % (0.0-3.0) 1.1 % (0.0-3.0) Basophils (%) (Auto) 0.3 % (0.0-2.0) 0.2 % (0.0-2.0) Activated Partial Thromboplast Time 39 SEC (23-33) H 105 SEC (23-33) H Sodium Level 143 MMOL/L (136-145) Potassium Level 3.5 MMOL/L (3.5-5.1) Chloride Level 108 MMOL/L (98-107) H Carbon Dioxide Level 27 MMOL/L (21-32) Anion Gap 8 mmol/L (5-15) Blood Urea Nitrogen 26 mg/dL (7-18) H Creatinine 1.4 MG/DL (0.55-1.30) H Estimat Glomerular Filtration Rate mL/min (>60) Glucose Level 124 MG/DL (74-106) H Calcium Level 8.1 MG/DL (8.5-10.1) L Phosphorus Level 2.3 MG/DL (2.5-4.9) L Magnesium Level 1.7 MG/DL (1.8-2.4) L Total Bilirubin 0.7 MG/DL (0.2-1.0) Aspartate Amino Transf (AST/SGOT) 72 U/L (15-37) H Alanine Aminotransferase (ALT/SGPT) 63 U/L (12-78) Alkaline Phosphatase 126 U/L (46-116) H Troponin I 1.595 ng/mL (0.000-0.056) Total Protein 6.1 G/DL (6.4-8.2) L Albumin 2.2 G/DL (3.4-5.0) L Globulin 3.9 g/dL Albumin/Globulin Ratio 0.6 (1.0-2.7) L Stool Occult Blood Pending Test 12/17/17 10:00 Activated Partial Thromboplast Time 84 SEC (23-33) H Microbiology Date/Time Source Procedure Growth Status 12/15/17 16:05 Blood Blood Culture - Preliminary NO GROWTH AFTER 24 HOURS Resulted 12/15/17 15:50 Blood Blood Culture - Preliminary Gram Negative Boo Resulted 12/15/17 17:45 Nasal Nares MRSA Culture - Final NO METHICILLIN RESISTANT STAPH AUREUS... Complete 12/16/17 17:25 Urine,Clean Catch Urine Culture - Preliminary NO GROWTH Resulted 12/15/17 15:58 Urine,Clean Catch Urine Culture - Final Pseudomonas Aeruginosa Complete 12/15/17 17:45 Rectum VRE Culture - Final Enterococcus Faecium - Vre Complete 12/15/17 17:45 Rectum - Final NO CARBAPENEM-RESISTANT ENTEROBACTERI... Complete Intake and Output 12/16/17 12/17/17 19:00 07:00 Intake Total 1070 ml 860.06 ml Output Total 130 ml 300 ml Balance 940 ml 560.06 ml Intake Oral 320 ml 100 ml IV Total 750 ml 760.06 ml Output Urine Total 130 ml 300 ml # Voids 4 4 # Bowel Movements 5 2 Objective Objective General: No acute distress, awake and alert HEENT: NCAT, sclera anicteric, PERRL, EOMI. Left facial droop. Neck: Supple, no significant jugular venous distention, Lungs: Fair inspiratory effort, no Wheeze or Rales. Heart: Regular rate and rhythm, normal S1/S2, no murmurs, distant heart sound. Abdomen: soft, nontender, nondistended. Normoactive bowel sounds. Obesity. Extremities: No Cyanosis , clubbing or edema. Neuro: A&O x 3, Able to move right side extremities, left side hemiparesis. Psych: Normal mood and affect Assessment/Plan Problem List: (1) NSTEMI (non-ST elevated myocardial infarction) (2) UTI (urinary tract infection) Assessment & Plan: Pseudamonas. Continue cefepime per ID (3) Sepsis Assessment & Plan: Gram neg boo-probable pseudamonas from UTI. Await ID and sensitivity; continue cefepime per ID (4) Renal calculus (5) Hypertension (6) Diabetes mellitus type II, uncontrolled (7) BPH (benign prostatic hyperplasia) (8) Deep venous embolism and thrombosis of left lower extremity (9) Cerebral vascular disease (10) Hypercholesteremia Mehdi Blair MD Dec 17, 2017 18:36
[2017-12-17 20:00] VITALS: BP 129/71
[2017-12-17] MEDS: Atorvastatin 80mg tab ORAL SCH (20:31)
[2017-12-17] MEDS: Tamsulosin 0.4mg cap ORAL SCH (20:31)
[2017-12-17] MEDS: Cefepime HCl 1 GM in D5W 55 ML IVPB SCH (23:20)
[2017-12-18] VITALS: BP 147/75
[2017-12-18 04:00] VITALS: BP 139/68
[2017-12-18 05:35] LABS: ANION GAP 7 mmol/L (5-15); BLOOD UREA NITROGEN 23 mg/dL (7-18); CARBON DIOXIDE 27 MMOL/L (21-32); CHLORIDE 110 MMOL/L (98-107); CREATININE 1.3 MG/DL (0.55-1.30); POTASSIUM 3.4 MMOL/L (3.5-5.1); SODIUM 143 MMOL/L (136-145)
[2017-12-18] MEDS ORDERED: Heparin 5000 units/ml inj IV SCH ×2 (07:15→21:45)
[2017-12-18] MEDS ORDERED: Heparin 25,000u/D5W 500ml 500 ML IV SCH ×3 (07:15→21:45)
[2017-12-18 08:00] VITALS: BP 150/76
--- NOTE | 2017-12-18 08:54 | Pulmonology Progress Note ---
Assessment/Plan Assessment/Plan ASSESSMENT acute hypoxemic respiratory failure requiring 100% NRM - resolved NSTEMI, silent sepsis with gram negative bacteremia urinary tract infection with Pseudomonas acute kidney injury/ATN-resolving CAD with hx of stent Hx of DVT and PE Hx of hemorrhagic CVA with left hemiparesis altered mental status nephrolithiasis status post recent ureteral stent placement BPH [employer] [facility] serial troponin pattern suggestive of NSTEMI , troponin downtrending EKG no acute ischemic changes no cardiac complaints per cardio- silent NSTEMI fup with with further cardio recommendation started on heparin gtt; Xarelto stopped a/PLT therapy with low dose ASA , no BB for now as per cardio statin , lipid panel DVT prophylaxis Abx; urine + Pseudomonas, blood cx + GNR IVF , monitor renal parameters, electrolytes ,corrected electrolytes prn, avoid nephrotoxics , creat trending down replace K today , check K and Mg in am Swallow evaluation Venous duplex cont Flomax and Proscar discussed with and patient POC at bedside concerned when he can follow up with urologist /dr Thompson, according to her patient will need another stent , prior unsuccessful? had dr Thompson contact number case discussed and evaluated by supervising physician Subjective Allergies: Coded Allergies: No Known Allergies (Unverified , 12/15/17) Subjective on heparin gtt troponin downtrending pulse ox stable denies chest pain, SOB creat trending down Objective Last 24 Hour Vital Signs Date Time Temp Pulse Resp B/P (MAP) Pulse Ox O2 Delivery O2 Flow Rate FiO2 12/18/17 04:00 43 12/18/17 04:00 Nasal Cannula 3.0 12/18/17 04:00 97.5 60 18 139/68 (91) 96 12/18/17 00:00 Nasal Cannula 3.0 12/18/17 00:00 53 12/18/17 00:00 97.5 53 19 147/75 (99) 98 12/17/17 21:55 98 Nasal Cannula 3.0 32 12/17/17 21:55 Nasal Cannula 3.0 32 12/17/17 21:55 59 16 Nasal Cannula 3.0 32 12/17/17 20:00 Nasal Cannula 3.0 12/17/17 20:00 98.2 51 18 129/71 (90) 100 12/17/17 19:38 51 12/17/17 16:00 48 12/17/17 16:00 97.8 41 19 141/67 (91) 99 12/17/17 16:00 Nasal Cannula 3.0 12/17/17 12:00 49 12/17/17 12:00 98.4 54 18 138/76 (96) 99 12/17/17 12:00 Nasal Cannula 3.0 12/17/17 08:58 59 Intake and Output 12/17/17 12/18/17 18:59 06:59 Intake Total 1360.526 ml 1051.090 ml Output Total 50 ml 280 ml Balance 1310.526 ml 771.090 ml Intake Oral 350 ml 60 ml IV Total 1010.526 ml 991.090 ml Output Urine Total 50 ml 280 ml # Voids 3 3 # Bowel Movements 2 2 Objective General Appearance: no acute distress, awake, alert, oriented HEENT: normocephalic, atraumatic, anicteric, mucous membranes moist Respiratory/Chest: lungs clear, no respiratory distress, no accessory muscle use Cardiovascular: no JVD, bradycardia - in 50th Abdomen: soft, non tender, non distended Extremities: other - L foot drop + 1 edema, Neurologic/Psychiatric: abnormal gait, alert, oriented x 3, responsive, normal mood/affect, left hemiparesis Musculoskeletal: atrophy - BLE Microbiology Date/Time Source Procedure Growth Status 12/15/17 16:05 Blood Blood Culture - Preliminary NO GROWTH AFTER 48 HOURS Resulted 12/15/17 15:50 Blood Blood Culture - Preliminary Gram Negative Boo Resulted 12/15/17 17:45 Nasal Nares MRSA Culture - Final NO METHICILLIN RESISTANT STAPH AUREUS... Complete 12/16/17 17:25 Urine,Clean Catch Urine Culture - Preliminary NO GROWTH Resulted 12/15/17 15:58 Urine,Clean Catch Urine Culture - Final Pseudomonas Aeruginosa Complete 12/15/17 17:45 Rectum VRE Culture - Final Enterococcus Faecium - Vre Complete 12/15/17 17:45 Rectum - Final NO CARBAPENEM-RESISTANT ENTEROBACTERI... Complete Laboratory Tests 12/17/17 10:00: Activated Partial Thromboplast Time 84H 12/18/17 04:06: Activated Partial Thromboplast Time 60H, Sodium Level 143, Potassium Level 3.4L , Chloride Level 110H, Carbon Dioxide Level 27, Anion Gap 7, Blood Urea Nitrogen 23H, Creatinine 1.3, Estimat Glomerular Filtration Rate , Glucose Level 136H, Calcium Level 8.0L Current Medications Medications (Trade) Dose Ordered Sig/Denisa Route PRN Reason Start Time Stop Time Status Last Admin Dose Admin Acetaminophen (Tylenol) 650 mg Q4H PRN ORAL Mild Pain/Temp > 100.5 12/17/17 15:00 01/16/18 14:59 Albuterol/ Ipratropium (Albuterol/ Ipratropium) 3 ml Q4H PRN HHN Shortness of Breath 12/16/17 19:00 12/20/17 18:59 Aspirin (ASA) 81 mg DAILY ORAL 12/17/17 09:00 01/15/18 08:59 12/17/17 08:40 Atorvastatin Calcium (Lipitor) 80 mg BEDTIME ORAL 12/16/17 21:00 01/14/18 20:59 12/17/17 20:31 Cefepime HCl 1 gm/ Dextrose 55 ml @ 110 mls/hr Q24H IVPB 12/17/17 00:00 12/24/17 00:00 12/17/17 23:20 Diltiazem HCl (Cardizem) 10 mg Q1H PRN IV heart rate more than 120bpm 12/16/17 19:00 01/14/18 18:59 Enalaprilat (Vasotec) 2.5 mg Q6H PRN IV sbp more than 160mmHg 12/16/17 19:00 01/14/18 18:59 EZETIMIBE (Zetia) 10 mg BEDTIME ORAL 12/16/17 21:00 01/15/18 20:59 12/17/17 20:31 Famotidine (Pepcid I.v.) 20 mg Q12HR IVP 12/17/17 09:00 01/16/18 08:59 12/17/17 20:29 Finasteride (Proscar) 5 mg DAILY ORAL 12/17/17 09:00 01/16/18 08:59 12/17/17 08:40 Gabapentin (Neurontin) 300 mg THREE TIMES A DAY ORAL 12/17/17 09:00 01/15/18 12:59 12/17/17 17:18 Heparin Sodium/ Dextrose 500 ml @ 22.33 mls/ hr ADJUST PER PROTOCOL IV 12/18/17 07:15 01/16/18 03:59 12/18/17 07:19 Morphine Sulfate (Morphine Sulfate) 2 mg Q4H PRN IVP severe Pain (Pain Scale 7-10) 12/16/17 19:00 12/22/17 18:59 Nitroglycerin (Ntg) 0.4 mg Q5M PRN SL Prn Chest Pain 12/16/17 18:45 01/14/18 18:59 Ondansetron HCl (Zofran) 4 mg Q6H PRN IVP Nausea & Vomiting 12/16/17 19:00 01/14/18 18:59 Polyethylene Glycol (Miralax) 17 gm DAILYPRN PRN ORAL Constipation 12/16/17 19:00 01/14/18 18:59 Sodium Chloride 1,000 ml @ 75 mls/hr [id number] IV 12/16/17 18:45 01/15/18 03:59 12/17/17 20:32 Tamsulosin HCl (Flomax) 0.4 mg BEDTIME ORAL 12/16/17 21:00 01/15/18 20:59 12/17/17 20:31 Temazepam (Restoril) 15 mg HSPRN PRN ORAL Insomnia 12/16/17 19:00 12/22/17 18:59 12/17/17 02:40 Tiffany Gillis [employer] Dec 18, 2017 08:54
[2017-12-18] MEDS: Aspirin Baby 81mg ORAL SCH (09:42)
[2017-12-18] MEDS ORDERED: Albuterol/Ipratropium 3ml neb HHN PRN (11:00)
[2017-12-18 12:00] VITALS: BP 149/73
--- NOTE | 2017-12-18 14:18 | Cardiology Progress Note ---
Assessment/Plan Problem List: (1) NSTEMI (non-ST elevated myocardial infarction) (2) CVA, old, hemiparesis (3) Chronic anticoagulation (4) Sepsis Status: stable, progressing Status Narrative Mr. Pulliam is a 77 yo man with hx of CAD, previous stents in 2005 ([facility]), DVT/ PE, and CVA, w/ L hemiparesis, who underwent a urologic procedure last week. He is readmitted w/ UTI and acute non-STEMI. Troponin levels are decreasing. He remains free of CP. BP is elevated. He c/o L leg pain - LE duplex was negative for DVT yesterday. He is hypokalemic He is being treated for UTI w/ abx Assessment/Plan Continue asa, statin and titrate beta-blockers. Hold xarelto, and continue heparin anticoagulation Supplement K Continue antibiotics for UTI Pt has been placed on transfer list at [facility], for coronary angio, poss PCI next week. Subjective ROS Limited/Unobtainable: No Subjective Cardiology/ Coverage for Dr. Alfonso Mr. Pulliam is alert, without c/o chest pain or dyspnea. He c/o L leg pain ( chronic) Objective Last 24 Hour Vital Signs Date Time Temp Pulse Resp B/P (MAP) Pulse Ox O2 Delivery O2 Flow Rate FiO2 12/18/17 13:25 41 12/18/17 12:00 Nasal Cannula 3.0 12/18/17 12:00 97.5 58 21 149/73 (98) 92 12/18/17 08:00 98.7 46 19 150/76 (100) 99 12/18/17 08:00 Nasal Cannula 3.0 12/18/17 08:00 39 12/18/17 04:00 43 12/18/17 04:00 Nasal Cannula 3.0 12/18/17 04:00 97.5 60 18 139/68 (91) 96 12/18/17 00:00 Nasal Cannula 3.0 12/18/17 00:00 53 12/18/17 00:00 97.5 53 19 147/75 (99) 98 12/17/17 21:55 98 Nasal Cannula 3.0 32 12/17/17 21:55 Nasal Cannula 3.0 32 12/17/17 21:55 59 16 Nasal Cannula 3.0 32 12/17/17 20:00 Nasal Cannula 3.0 12/17/17 20:00 98.2 51 18 129/71 (90) 100 12/17/17 19:38 51 12/17/17 16:00 48 12/17/17 16:00 97.8 41 19 141/67 (91) 99 12/17/17 16:00 Nasal Cannula 3.0 General Appearance: no apparent distress, alert EENT: PERRL/EOMI Neck: supple, no JVD Rhythm: NSR Cardiovascular: normal peripheral pulses, normal rate, regular rhythm Respiratory/Chest: lungs clear, other - clear anteriorly Abdomen: normal bowel sounds, non tender, soft Neurologic: alert - L hemiparesis, other Intake and Output 12/17/17 12/18/17 19:00 07:00 Intake Total 1360.526 ml 1051.090 ml Output Total 50 ml 280 ml Balance 1310.526 ml 771.090 ml Intake Oral 350 ml 60 ml IV Total 1010.526 ml 991.090 ml Output Urine Total 50 ml 280 ml # Voids 3 3 # Bowel Movements 2 2 Laboratory Tests Test 12/18/17 04:06 12/18/17 13:35 Activated Partial Thromboplast Time 60 SEC (23-33) H Pending Sodium Level 143 MMOL/L (136-145) Potassium Level 3.4 MMOL/L (3.5-5.1) L Chloride Level 110 MMOL/L (98-107) H Carbon Dioxide Level 27 MMOL/L (21-32) Anion Gap 7 mmol/L (5-15) Blood Urea Nitrogen 23 mg/dL (7-18) H Creatinine 1.3 MG/DL (0.55-1.30) Estimat Glomerular Filtration Rate mL/min (>60) Glucose Level 136 MG/DL (74-106) H Calcium Level 8.0 MG/DL (8.5-10.1) L Microbiology Date/Time Source Procedure Growth Status 12/15/17 16:05 Blood Blood Culture - Preliminary Resulted 12/15/17 15:50 Blood Blood Culture - Preliminary Gram Negative Boo Resulted 12/15/17 17:45 Nasal Nares MRSA Culture - Final NO METHICILLIN RESISTANT STAPH AUREUS... Complete 12/16/17 17:25 Urine,Clean Catch Urine Culture - Preliminary NO GROWTH AFTER 24 HOURS Resulted 12/15/17 15:58 Urine,Clean Catch Urine Culture - Final Pseudomonas Aeruginosa Complete 12/15/17 17:45 Rectum VRE Culture - Final Enterococcus Faecium - Vre Complete 12/15/17 17:45 Rectum - Final NO CARBAPENEM-RESISTANT ENTEROBACTERI... Complete Judy Shearer MD Dec 18, 2017 14:18
--- NOTE | 2017-12-18 15:56 | Internal Med Progress Note ---
Subjective Date of Service: Dec 18, 2017 Physician Name Blair,Mehdi Attending Physician Lito Ron MD Current Medications Medications (Trade) Dose Ordered Sig/Denisa Route PRN Reason Start Time Stop Time Status Last Admin Dose Admin Acetaminophen (Tylenol) 650 mg Q4H PRN ORAL Mild Pain/Temp > 100.5 12/17/17 15:00 01/16/18 14:59 Albuterol/ Ipratropium (Albuterol/ Ipratropium) 3 ml Q4H PRN HHN Shortness of Breath 12/18/17 11:00 12/22/17 10:59 Aspirin (ASA) 81 mg DAILY ORAL 12/17/17 09:00 01/15/18 08:59 12/18/17 09:42 Atorvastatin Calcium (Lipitor) 80 mg BEDTIME ORAL 12/16/17 21:00 01/14/18 20:59 12/17/17 20:31 Cefepime HCl 1 gm/ Dextrose 55 ml @ 110 mls/hr Q24H IVPB 12/17/17 00:00 12/24/17 00:00 12/17/17 23:20 Enalaprilat (Vasotec) 2.5 mg Q6H PRN IV sbp more than 160mmHg 12/16/17 19:00 01/14/18 18:59 EZETIMIBE (Zetia) 10 mg BEDTIME ORAL 12/16/17 21:00 01/15/18 20:59 12/17/17 20:31 Famotidine (Pepcid I.v.) 20 mg Q12HR IVP 12/17/17 09:00 01/16/18 08:59 12/18/17 09:41 Finasteride (Proscar) 5 mg DAILY ORAL 12/17/17 09:00 01/16/18 08:59 12/18/17 09:42 Gabapentin (Neurontin) 300 mg THREE TIMES A DAY ORAL 12/17/17 09:00 01/15/18 12:59 12/18/17 14:16 Heparin Sodium/ Dextrose 500 ml @ 18.609 mls/ hr ADJUST PER PROTOCOL IV 12/18/17 15:00 01/17/18 14:59 12/18/17 14:52 Metoprolol Tartrate (Lopressor) 25 mg Q12HR ORAL 12/18/17 21:00 01/17/18 20:59 Morphine Sulfate (Morphine Sulfate) 2 mg Q4H PRN IVP severe Pain (Pain Scale 7-10) 12/16/17 19:00 12/22/17 18:59 Nitroglycerin (Ntg) 0.4 mg Q5M PRN SL Prn Chest Pain 12/16/17 18:45 01/14/18 18:59 Ondansetron HCl (Zofran) 4 mg Q6H PRN IVP Nausea & Vomiting 12/16/17 19:00 01/14/18 18:59 Polyethylene Glycol (Miralax) 17 gm DAILYPRN PRN ORAL Constipation 12/16/17 19:00 01/14/18 18:59 Sodium Chloride 1,000 ml @ 75 mls/hr [id number] IV 12/16/17 18:45 01/15/18 03:59 12/18/17 09:44 Tamsulosin HCl (Flomax) 0.4 mg BEDTIME ORAL 12/16/17 21:00 01/15/18 20:59 12/17/17 20:31 Temazepam (Restoril) 15 mg HSPRN PRN ORAL Insomnia 12/16/17 19:00 12/22/17 18:59 12/17/17 02:40 Allergies: Coded Allergies: No Known Allergies (Unverified , 12/15/17) ROS Limited/Unobtainable: Yes Subjective 77 YO M admitted with altered mental status. Now NSTEMI. Await transfer to [facility] for cardiac cath. Cover for Int Justin-Dr Ron Objective Last Vital Signs Date Time Temp Pulse Resp B/P (MAP) Pulse Ox O2 Delivery O2 Flow Rate FiO2 12/18/17 13:45 98 Nasal Cannula 3.0 32 12/18/17 13:45 58 18 12/18/17 12:00 97.5 149/73 (98) Laboratory Tests Test 12/18/17 04:06 12/18/17 13:35 Activated Partial Thromboplast Time 60 SEC (23-33) H 100 SEC (23-33) H Sodium Level 143 MMOL/L (136-145) Potassium Level 3.4 MMOL/L (3.5-5.1) L Chloride Level 110 MMOL/L (98-107) H Carbon Dioxide Level 27 MMOL/L (21-32) Anion Gap 7 mmol/L (5-15) Blood Urea Nitrogen 23 mg/dL (7-18) H Creatinine 1.3 MG/DL (0.55-1.30) Estimat Glomerular Filtration Rate mL/min (>60) Glucose Level 136 MG/DL (74-106) H Calcium Level 8.0 MG/DL (8.5-10.1) L Microbiology Date/Time Source Procedure Growth Status 12/15/17 16:05 Blood Blood Culture - Preliminary Resulted 12/15/17 17:45 Nasal Nares MRSA Culture - Final NO METHICILLIN RESISTANT STAPH AUREUS... Complete 12/16/17 17:25 Urine,Clean Catch Urine Culture - Preliminary NO GROWTH AFTER 24 HOURS Resulted 12/15/17 15:58 Urine,Clean Catch Urine Culture - Final Pseudomonas Aeruginosa Complete 12/15/17 17:45 Rectum VRE Culture - Final Enterococcus Faecium - Vre Complete 12/15/17 17:45 Rectum - Final NO CARBAPENEM-RESISTANT ENTEROBACTERI... Complete Intake and Output 12/17/17 12/18/17 19:00 07:00 Intake Total 1360.526 ml 1051.090 ml Output Total 50 ml 280 ml Balance 1310.526 ml 771.090 ml Intake Oral 350 ml 60 ml IV Total 1010.526 ml 991.090 ml Output Urine Total 50 ml 280 ml # Voids 3 3 # Bowel Movements 2 2 Objective Objective General: No acute distress, awake and alert HEENT: NCAT, sclera anicteric, PERRL, EOMI. Left facial droop. Neck: Supple, no significant jugular venous distention, Lungs: Fair inspiratory effort, no Wheeze or Rales. Heart: Regular rate and rhythm, normal S1/S2, no murmurs, distant heart sound. Abdomen: soft, nontender, nondistended. Normoactive bowel sounds. Obesity. Extremities: No Cyanosis , clubbing or edema. Neuro: A&O x 3, Able to move right side extremities, left side hemiparesis. Psych: Normal mood and affect Assessment/Plan Problem List: (1) NSTEMI (non-ST elevated myocardial infarction) Assessment & Plan: On heparin drip. Will require cardiac cath. Await transfer to [facility]-see cardiology note. (2) UTI (urinary tract infection) Assessment & Plan: Pseudamonas. Continue cefepime per ID (3) Sepsis Assessment & Plan: Gram neg ashkan-probable pseudamonas from UTI. Await ID and sensitivity; continue cefepime per ID (4) Renal calculus (5) Hypertension (6) Diabetes mellitus type II, uncontrolled (7) BPH (benign prostatic hyperplasia) (8) Deep venous embolism and thrombosis of left lower extremity Assessment & Plan: on heparin drip (9) Cerebral vascular disease (10) Hypercholesteremia Status: not improved Mehdi Blair MD Dec 18, 2017 15:56
[2017-12-18 16:00] VITALS: BP 137/71
--- NOTE | 2017-12-18 17:16 | Consultation ---
DATE OF CONSULTATION: 12/18/2017 CONSULTING PHYSICIAN: Kevin Thompson M.D. REFERRING PHYSICIAN: Scott Hoover M.D. REASON FOR CONSULTATION: Followup of multiple urologic issues. HISTORY OF PRESENT ILLNESS: This is a pleasant 77-year-old male who is very well known to me. The patient has a history of BPH and hydrocele. He has a history of nephrolithiasis and was recently evaluated at [facility] for an obstructive right ureteral calculus with significant colic. He is now about 2-1/2 weeks status post placement of a right ureteral stent. 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 He has since been in [facility] with indwelling Cummings and he has had hematuria off and on and I did talk to the physician at the rehab facility and his Cummings catheter had been removed the day or 2 before he was admitted. Apparently, he was voiding, however, he started having lethargy and fevers and was brought to the emergency room and has been admitted. There was a possible IL noted. He is being worked up. Family has requested follow-up evaluation. At this time, he is voiding fairly well. His urine is clearing. PAST MEDICAL HISTORY: Significant for above. He has a history of hypertension, coronary artery disease, diabetes, GERD, and CVA history. He is not mobile. PAST SURGICAL HISTORY: As above. CURRENT MEDICATIONS: In the hospital, the patient is on albuterol, heparin, Tylenol, aspirin, Proscar, Neurontin, Pepcid, cefepime, Zetia, Flomax, Lipitor, Vasotec, MiraLAX, Zofran, Restoril, and nitroglycerin. ALLERGIES: No known drug allergies. SOCIAL HISTORY: Nonsmoker. FAMILY HISTORY: Noncontributory. REVIEW OF SYSTEMS: As above. PHYSICAL EXAMINATION: GENERAL: An elderly male, in no acute distress. VITAL SIGNS: His temperature is currently 98.7, blood pressure 150/76, pulse 46, and respirations 19. HEENT: Normocephalic. NECK: Supple. ABDOMEN: Soft. BACK: No CVA tenderness. GENITOURINARY: Reveals scrotal enlargement. His last urine in the ureter was dark yellow ciara colored. EXTREMITIES: No clubbing or cyanosis. LABORATORY DATA: Creatinine is 1.3. On admission, he had a creatinine of 2.0. Potassium 3.4. White count is 8.9. He did have a white count of 21.6 at the time of admission. Hemoglobin is 10.1. INR is 1.1. UA on admission showed positive nitrites, 10 to 15 rbc's, 5 to 10 wbc's, and moderate bacteria. His urine culture from the 8th has shown Pseudomonas. He did have a blood culture, which has shown gram-negative rods. His repeat urine culture from the 9 is negative at 24 hours. DIAGNOSTIC IMAGING STUDIES: The patient had a CT scan of the abdomen and pelvis. At that time, there was mention of multiple nonobstructing stones in both kidneys with the stent in the right ureter. Some nonspecific perinephric stranding and prostate hypertrophy. IMPRESSION: 1. History of nephrolithiasis. 2. History of colic and hydro with right indwelling ureteral stent. 3. Benign prostatic hypertrophy history. 4. Hematuria. 5. Urinary tract infection. 6. Proteinuria. 7. Hydrocele. 8. Urinary frequency history. 9. Probable neurogenic bladder. 10. Acute kidney injury, which is better. 11. Sepsis. PLAN AND DISCUSSION: The patient is to be monitored clinically. He is to continue with antibiotics as ordered. We will follow up on the results of the repeat urine culture. He at some point will need to have repeat ureteroscopy and lithotripsy once his cardiac situation has been stabilized. His renal function will be monitored. He did have acute kidney injury, which has improved and is resolving. We will follow the patient. Thank you for this consultation. Kevin Thompson M.D. DR: RYLEE JOB#: [id number] CC:
[2017-12-18 20:00] VITALS: BP 145/67
[2017-12-18] MEDS: Atorvastatin 80mg tab ORAL SCH (21:00)
[2017-12-18] MEDS: Metoprolol 25mg tab ORAL SCH (21:00)
[2017-12-18] MEDS: Tamsulosin 0.4mg cap ORAL SCH (21:00)
[2017-12-18] MEDS: Cefepime HCl 1 GM in D5W 55 ML IVPB SCH (23:25)
[2017-12-19] VITALS (7 sets, daily range): BP systolic 130–165; BP diastolic 57–82
[2017-12-19 04:34] LABS: BASOPHILS % (AUTO) 1.2 % (0.0-2.0); EOSINOPHILS % (AUTO) 1.6 % (0.0-3.0); HEMATOCRIT 27.5 % (42.0-52.0); HEMOGLOBIN 9.1 G/DL (14.2-18.0); LYMPHOCYTES % (AUTO) 21.3 % (20.0-45.0); MEAN CORPUSCULAR VOLUME 89 FL (80-99); MONOCYTES % (AUTO) 13.5 % (1.0-10.0); NEUTROPHILS % (AUTO) 62.4 % (45.0-75.0); PLATELET COUNT 196 K/UL (150-450); RED BLOOD COUNT 3.08 M/UL (4.70-6.10); WHITE BLOOD COUNT 5.5 K/UL (4.8-10.8)
[2017-12-19 04:49] LABS: ANION GAP 7 mmol/L (5-15); BLOOD UREA NITROGEN 19 mg/dL (7-18); CALCIUM 8.1 MG/DL (8.5-10.1); CARBON DIOXIDE 28 MMOL/L (21-32); CHLORIDE 112 MMOL/L (98-107); CREATININE 1.4 MG/DL (0.55-1.30); POTASSIUM 3.9 MMOL/L (3.5-5.1); SODIUM 147 MMOL/L (136-145)
[2017-12-19] MEDS ORDERED: Heparin 25,000u/D5W 500ml 500 ML IV SCH ×3 (05:00→14:11)
[2017-12-19] MEDS: Metoprolol 25mg tab ORAL SCH ×2 (09:00→20:33)
--- NOTE | 2017-12-19 09:14 | Urology Progress Note ---
Assessment/Plan Assessment/Plan 1. History of nephrolithiasis. 2. History of colic and hydro with right indwelling ureteral stent. 3. Benign prostatic hypertrophy history. 4. Hematuria. 5. Urinary tract infection. 6. Proteinuria. 7. Hydrocele. 8. Urinary frequency history. 9. Probable neurogenic bladder. 10. Acute kidney injury, which is better. 11. Sepsis. abx as ordered flomax and proscar check KUB Subjective Allergies: Coded Allergies: No Known Allergies (Unverified , 12/15/17) Subjective lethargic, voiding, condom cath Objective Last 24 Hour Vital Signs Date Time Temp Pulse Resp B/P (MAP) Pulse Ox O2 Delivery O2 Flow Rate FiO2 12/19/17 04:00 98.6 48 20 150/76 (100) 98 12/19/17 04:00 57 12/19/17 04:00 Nasal Cannula 3.0 12/19/17 00:00 41 12/19/17 00:00 98.9 46 20 143/73 (96) 98 12/19/17 00:00 Nasal Cannula 3.0 12/18/17 21:00 43 145/67 12/18/17 20:00 98.9 48 20 145/67 (93) 99 12/18/17 20:00 Nasal Cannula 3.0 12/18/17 20:00 47 12/18/17 19:20 Nasal Cannula 3.0 32 12/18/17 19:20 98 Nasal Cannula 3.0 32 12/18/17 19:20 61 20 Nasal Cannula 3.0 32 12/18/17 16:00 Nasal Cannula 3.0 12/18/17 16:00 98.9 46 19 137/71 (93) 99 12/18/17 13:45 98 Nasal Cannula 3.0 32 12/18/17 13:45 58 18 Nasal Cannula 3.0 32 12/18/17 13:45 Nasal Cannula 3.0 32 12/18/17 13:25 41 12/18/17 12:00 Nasal Cannula 3.0 12/18/17 12:00 97.5 58 21 149/73 (98) 92 Intake and Output 12/18/17 12/19/17 18:59 06:59 Intake Total 1838.756 ml 1159.937 ml Output Total 750 ml 1300 ml Balance 1088.756 ml -140.063 ml Intake Oral 850 ml 50 ml IV Total 988.756 ml 1109.937 ml Output Urine Total 750 ml 1300 ml # Bowel Movements 1 Microbiology Date/Time Source Procedure Growth Status 12/17/17 11:50 Blood Blood Culture - Preliminary NO GROWTH AFTER 24 HOURS Resulted 12/15/17 17:45 Nasal Nares MRSA Culture - Final NO METHICILLIN RESISTANT STAPH AUREUS... Complete 12/16/17 17:25 Urine,Clean Catch Urine Culture - Final NO GROWTH AFTER 48 HOURS Complete 12/15/17 17:45 Rectum VRE Culture - Final Enterococcus Faecium - Vre Complete 12/15/17 17:45 Rectum - Final NO CARBAPENEM-RESISTANT ENTEROBACTERI... Complete Current Medications Medications (Trade) Dose Ordered Sig/Denisa Route PRN Reason Start Time Stop Time Status Last Admin Dose Admin Acetaminophen (Tylenol) 650 mg Q4H PRN ORAL Mild Pain/Temp > 100.5 12/17/17 15:00 01/16/18 14:59 Albuterol/ Ipratropium (Albuterol/ Ipratropium) 3 ml Q4H PRN HHN Shortness of Breath 12/18/17 11:00 12/22/17 10:59 Aspirin (ASA) 81 mg DAILY ORAL 12/17/17 09:00 01/15/18 08:59 12/18/17 09:42 Atorvastatin Calcium (Lipitor) 80 mg BEDTIME ORAL 12/16/17 21:00 01/14/18 20:59 12/17/17 20:31 Cefepime HCl 1 gm/ Dextrose 55 ml @ 110 mls/hr Q24H IVPB 12/17/17 00:00 12/24/17 00:00 12/18/17 23:25 Enalaprilat (Vasotec) 2.5 mg Q6H PRN IV sbp more than 160mmHg 12/16/17 19:00 01/14/18 18:59 EZETIMIBE (Zetia) 10 mg BEDTIME ORAL 12/16/17 21:00 01/15/18 20:59 12/17/17 20:31 Famotidine (Pepcid I.v.) 20 mg Q12HR IVP 12/17/17 09:00 01/16/18 08:59 12/18/17 20:58 Finasteride (Proscar) 5 mg DAILY ORAL 12/17/17 09:00 01/16/18 08:59 12/18/17 09:42 Gabapentin (Neurontin) 300 mg THREE TIMES A DAY ORAL 12/17/17 09:00 01/15/18 12:59 12/18/17 18:11 Heparin Sodium/ Dextrose 500 ml @ 18.79 mls/ hr ADJUST PER PROTOCOL IV 12/19/17 05:00 01/18/18 04:59 12/19/17 05:04 Magnesium Sulfate 100 ml @ 100 mls/hr Q1H IVPB 12/19/17 08:00 12/19/17 09:59 12/19/17 08:06 Metoprolol Tartrate (Lopressor) 25 mg Q12HR ORAL 12/18/17 21:00 01/17/18 20:59 Morphine Sulfate (Morphine Sulfate) 2 mg Q4H PRN IVP severe Pain (Pain Scale 7-10) 12/16/17 19:00 12/22/17 18:59 Nitroglycerin (Ntg) 0.4 mg Q5M PRN SL Prn Chest Pain 12/16/17 18:45 01/14/18 18:59 Ondansetron HCl (Zofran) 4 mg Q6H PRN IVP Nausea & Vomiting 12/16/17 19:00 01/14/18 18:59 Polyethylene Glycol (Miralax) 17 gm DAILYPRN PRN ORAL Constipation 12/16/17 19:00 01/14/18 18:59 Sodium Chloride 1,000 ml @ 75 mls/hr [id number] IV 12/16/17 18:45 01/15/18 03:59 12/18/17 23:03 Tamsulosin HCl (Flomax) 0.4 mg BEDTIME ORAL 12/16/17 21:00 01/15/18 20:59 12/17/17 20:31 Temazepam (Restoril) 15 mg HSPRN PRN ORAL Insomnia 12/16/17 19:00 12/22/17 18:59 12/17/17 02:40 Laboratory Tests 12/18/17 13:35: Activated Partial Thromboplast Time 100H 12/18/17 21:15: Activated Partial Thromboplast Time 64H 12/19/17 03:30: Activated Partial Thromboplast Time 96H, White Blood Count 5.5, Red Blood Count 3.08L, Hemoglobin 9.1L, Hematocrit 27.5L, Mean Corpuscular Volume 89, Mean Corpuscular Hemoglobin 29.7, Mean Corpuscular Hemoglobin Concent 33.2, Red Cell Distribution Width 13.0, Platelet Count 196, Mean Platelet Volume 6.7, Neutrophils (%) (Auto) 62.4, Lymphocytes (%) (Auto) 21.3, Monocytes (%) (Auto) 13.5H, Eosinophils (%) (Auto) 1.6, Basophils (%) (Auto) 1.2, Magnesium Level 1.7L 12/19/17 03:33: Sodium Level 147H, Potassium Level 3.9, Chloride Level 112H, Carbon Dioxide Level 28, Anion Gap 7, Blood Urea Nitrogen 19H, Creatinine 1.4H, Estimat Glomerular Filtration Rate , Glucose Level 134H, Calcium Level 8.1L, Troponin I 0.677H Height (Feet): 5 Height (Inches): 7.00 Weight (Pounds): 210 Objective abdomen soft, urine grossly yellow/ciara AustinshKevin rodriguez MD Dec 19, 2017 09:14
[2017-12-19] MEDS: Aspirin Baby 81mg ORAL SCH (09:26)
--- NOTE | 2017-12-19 11:00 | Cardiology Report ---
APPROVED REPORT EXAM: Two-dimensional and M-mode echocardiogram with Doppler and color Doppler. INDICATION Left Ventricular Function M-Mode DIMENSIONS IVSd1.2 (0.7-1.1cm)Left Atrium (MM)3.3 (1.6-4.0cm) LVDd4.5 (3.5-5.6cm)Aortic Root2.6 (2.0-3.7cm) PWd1.0 (0.7-1.1cm)Aortic Cusp Exc.2.0 (1.5-2.0cm) LVDs3.2 (2.5-4.0cm) PWs1.6 cm Technically difficult study due to patient condition. Study quality precludes accurate assessment of regional wall motion. Normal left ventricular chamber size, systolic function and wall motion. Left ventricular ejection fraction estimated to be 55 %. Mild left ventricular hypertrophy. Anterior Echo-free space, may be due to pericardial fat or effusion. Mild bi-atrial enlargement. Mild right ventricular enlargement. Mild focal aortic valve sclerosis with adequate cusp excursion. Mildly thickened mitral valve leaflets with normal excursion. Mild mitral annulus and aortic root calcification. Normal pulmonic valve structure. Normal tricuspid valve structure. Subcostal views not obtainable. A color flow and spectral Doppler study was performed and revealed: No aortic insufficiency. No mitral regurgitation. Mitral diastolic velocities suggest mild left ventricular diastolic dysfunction (Grade I). Moderate tricuspid regurgitation. Tricuspid systolic velocities suggests peak right ventricular systolic pressure of 57 mmHg, consistent with moderate pulmonary hypertension. No pulmonic regurgitation present.
--- NOTE | 2017-12-19 11:20 | Diagnostic Imaging Report ---
Indication: Shortness of breath Technique: One view of the chest Comparison: 12/15/2017 Findings: There is persistent but slightly decreased retrocardiac consolidation. The heart remains enlarged. There is degenerative spondylosis again demonstrated Impression: Slightly improved retrocardiac consolidation, over 4 days
--- NOTE | 2017-12-19 11:22 | Diagnostic Imaging Report ---
Indication: Abdominal pain Technique: Supine view of the abdomen Comparison: [employer] image from abdominal CT dated 12/15/2017 Findings: Right nephroureteral stent is again demonstrated. Calyceal calcifications project over the lower pole of the right kidney. Bowel gas pattern is unremarkable. There is some retained stool within the rectum. Impression: Right nephroureteral stent and right nephrolithiasis, also previously demonstrated No acute process
--- NOTE | 2017-12-19 11:41 | Infectious Diseases Prog Note ---
Assessment/Plan Assessment/Plan ASSESSMENT: The patient is a 77-year-old male with: -. Sepsis 2ry to UTI C/w bacteremia US : Right nephroureteral stent and right nephrolithiasis, also previously demonstrated -ucx PsA (finch S); repeat ucx NTD -12/15 Bcx 1 GNR -CT abd/p: Multiple nonobstructive stones within both kidneys as described above. Right ureteral stent in good position. No hydronephrosis. Perinephric stranding nonspecific. Moderate fecal retention. Prostate hypertrophy.Gallstones versus sludge. -. Leukocytosis, SP -. Fever, improvinng -. Non-STEMI. -. Anemia. . Renal stone s/p recent stent . Hypertension. . CAD. . Diabetes. . BPH. . History of DVT. . History of CVA. VRE colonized PLAN: Start IV Levaquin d# 1/ and DC IV cefepime day # 4 Monitor CBC and BMP. Monitor cultures (blood, urine) Uro fup Subjective Allergies: Coded Allergies: No Known Allergies (Unverified , 12/15/17) Subjective Comfortable Objective Vital Signs Last 24 Hour Vital Signs Date Time Temp Pulse Resp B/P (MAP) Pulse Ox O2 Delivery O2 Flow Rate FiO2 12/19/17 09:00 41 150/75 12/19/17 08:00 97.7 41 20 150/75 (100) 97 12/19/17 08:00 38 12/19/17 04:00 98.6 48 20 150/76 (100) 98 12/19/17 04:00 57 12/19/17 04:00 Nasal Cannula 3.0 12/19/17 00:00 41 12/19/17 00:00 98.9 46 20 143/73 (96) 98 12/19/17 00:00 Nasal Cannula 3.0 12/18/17 21:00 43 145/67 12/18/17 20:00 98.9 48 20 145/67 (93) 99 12/18/17 20:00 Nasal Cannula 3.0 12/18/17 20:00 47 12/18/17 19:20 Nasal Cannula 3.0 32 12/18/17 19:20 98 Nasal Cannula 3.0 32 12/18/17 19:20 61 20 Nasal Cannula 3.0 32 12/18/17 16:00 Nasal Cannula 3.0 12/18/17 16:00 98.9 46 19 137/71 (93) 99 12/18/17 13:45 98 Nasal Cannula 3.0 32 12/18/17 13:45 58 18 Nasal Cannula 3.0 32 12/18/17 13:45 Nasal Cannula 3.0 32 12/18/17 13:25 41 12/18/17 12:00 Nasal Cannula 3.0 12/18/17 12:00 97.5 58 21 149/73 (98) 92 Height (Feet): 5 Height (Inches): 7.00 Weight (Pounds): 210 HEENT: anicteric Respiratory/Chest: no respiratory distress Cardiovascular: regularly irregular Abdomen: non distended Microbiology Date/Time Source Procedure Growth Status 12/17/17 11:50 Blood Blood Culture - Preliminary NO GROWTH AFTER 24 HOURS Resulted 12/17/17 11:50 Blood Blood Culture - Preliminary NO GROWTH AFTER 24 HOURS Resulted 12/16/17 17:25 Urine,Clean Catch Urine Culture - Final NO GROWTH AFTER 48 HOURS Complete Laboratory Tests Test 12/18/17 13:35 12/18/17 21:15 12/19/17 03:30 12/19/17 03:33 Activated Partial Thromboplast Time 100 SEC (23-33) H 64 SEC (23-33) H 96 SEC (23-33) H White Blood Count 5.5 K/UL (4.8-10.8) Red Blood Count 3.08 M/UL (4.70-6.10) L Hemoglobin 9.1 G/DL (14.2-18.0) L Hematocrit 27.5 % (42.0-52.0) L Mean Corpuscular Volume 89 FL (80-99) Mean Corpuscular Hemoglobin 29.7 PG (27.0-31.0) Mean Corpuscular Hemoglobin Concent 33.2 G/DL (32.0-36.0) Red Cell Distribution Width 13.0 % (11.6-14.8) Platelet Count 196 K/UL (150-450) Mean Platelet Volume 6.7 FL (6.5-10.1) Neutrophils (%) (Auto) 62.4 % (45.0-75.0) Lymphocytes (%) (Auto) 21.3 % (20.0-45.0) Monocytes (%) (Auto) 13.5 % (1.0-10.0) H Eosinophils (%) (Auto) 1.6 % (0.0-3.0) Basophils (%) (Auto) 1.2 % (0.0-2.0) Magnesium Level 1.7 MG/DL (1.8-2.4) L Sodium Level 147 MMOL/L (136-145) H Potassium Level 3.9 MMOL/L (3.5-5.1) Chloride Level 112 MMOL/L (98-107) H Carbon Dioxide Level 28 MMOL/L (21-32) Anion Gap 7 mmol/L (5-15) Blood Urea Nitrogen 19 mg/dL (7-18) H Creatinine 1.4 MG/DL (0.55-1.30) H Estimat Glomerular Filtration Rate mL/min (>60) Glucose Level 134 MG/DL (74-106) H Calcium Level 8.1 MG/DL (8.5-10.1) L Troponin I 0.677 ng/mL (0.000-0.056) Test 12/19/17 11:00 Activated Partial Thromboplast Time Pending Current Medications Medications (Trade) Dose Ordered Sig/Denisa Route PRN Reason Start Time Stop Time Status Last Admin Dose Admin Acetaminophen (Tylenol) 650 mg Q4H PRN ORAL Mild Pain/Temp > 100.5 12/17/17 15:00 01/16/18 14:59 12/19/17 10:26 Albuterol/ Ipratropium (Albuterol/ Ipratropium) 3 ml Q4H PRN HHN Shortness of Breath 12/18/17 11:00 12/22/17 10:59 Aspirin (ASA) 81 mg DAILY ORAL 12/17/17 09:00 01/15/18 08:59 12/19/17 09:26 Atorvastatin Calcium (Lipitor) 80 mg BEDTIME ORAL 12/16/17 21:00 01/14/18 20:59 12/17/17 20:31 Cefepime HCl 1 gm/ Dextrose 55 ml @ 110 mls/hr Q24H IVPB 12/17/17 00:00 12/24/17 00:00 12/18/17 23:25 Enalaprilat (Vasotec) 2.5 mg Q6H PRN IV sbp more than 160mmHg 12/16/17 19:00 01/14/18 18:59 EZETIMIBE (Zetia) 10 mg BEDTIME ORAL 12/16/17 21:00 01/15/18 20:59 12/17/17 20:31 Famotidine (Pepcid I.v.) 20 mg Q12HR IVP 12/17/17 09:00 01/16/18 08:59 12/19/17 09:28 Finasteride (Proscar) 5 mg DAILY ORAL 12/17/17 09:00 01/16/18 08:59 12/19/17 09:28 Gabapentin (Neurontin) 300 mg THREE TIMES A DAY ORAL 12/17/17 09:00 01/15/18 12:59 12/19/17 09:27 Heparin Sodium/ Dextrose 500 ml @ 18.79 mls/ hr ADJUST PER PROTOCOL IV 12/19/17 05:00 01/18/18 04:59 12/19/17 05:04 Metoprolol Tartrate (Lopressor) 25 mg Q12HR ORAL 12/18/17 21:00 01/17/18 20:59 Morphine Sulfate (Morphine Sulfate) 2 mg Q4H PRN IVP severe Pain (Pain Scale 7-10) 12/16/17 19:00 12/22/17 18:59 Nitroglycerin (Ntg) 0.4 mg Q5M PRN SL Prn Chest Pain 12/16/17 18:45 01/14/18 18:59 Ondansetron HCl (Zofran) 4 mg Q6H PRN IVP Nausea & Vomiting 12/16/17 19:00 01/14/18 18:59 Polyethylene Glycol (Miralax) 17 gm DAILYPRN PRN ORAL Constipation 12/16/17 19:00 01/14/18 18:59 Sodium Chloride 1,000 ml @ 75 mls/hr [id number] IV 12/16/17 18:45 01/15/18 03:59 12/18/17 23:03 Tamsulosin HCl (Flomax) 0.4 mg BEDTIME ORAL 12/16/17 21:00 01/15/18 20:59 12/17/17 20:31 Temazepam (Restoril) 15 mg HSPRN PRN ORAL Insomnia 12/16/17 19:00 12/22/17 18:59 12/17/17 02:40 Prieto Millan MD Dec 19, 2017 11:41
[2017-12-19] MEDS ORDERED: Heparin 5000 units/ml inj IV SCH (12:00)
--- NOTE | 2017-12-19 12:05 | Pulmonology Progress Note ---
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 Subjective ROS Limited/Unobtainable: No Interval Events: doing better Allergies: Coded Allergies: No Known Allergies (Unverified , 12/15/17) Objective Last 24 Hour Vital Signs Date Time Temp Pulse Resp B/P (MAP) Pulse Ox O2 Delivery O2 Flow Rate FiO2 12/19/17 09:00 41 150/75 12/19/17 08:00 Nasal Cannula 3.0 12/19/17 08:00 97.7 41 20 150/75 (100) 97 12/19/17 08:00 38 12/19/17 04:00 98.6 48 20 150/76 (100) 98 12/19/17 04:00 57 12/19/17 04:00 Nasal Cannula 3.0 12/19/17 00:00 41 12/19/17 00:00 98.9 46 20 143/73 (96) 98 12/19/17 00:00 Nasal Cannula 3.0 12/18/17 21:00 43 145/67 12/18/17 20:00 98.9 48 20 145/67 (93) 99 12/18/17 20:00 Nasal Cannula 3.0 12/18/17 20:00 47 12/18/17 19:20 Nasal Cannula 3.0 32 12/18/17 19:20 98 Nasal Cannula 3.0 32 12/18/17 19:20 61 20 Nasal Cannula 3.0 32 12/18/17 16:00 Nasal Cannula 3.0 12/18/17 16:00 98.9 46 19 137/71 (93) 99 12/18/17 13:45 98 Nasal Cannula 3.0 32 12/18/17 13:45 58 18 Nasal Cannula 3.0 32 12/18/17 13:45 Nasal Cannula 3.0 32 12/18/17 13:25 41 Intake and Output 12/18/17 12/19/17 18:59 06:59 Intake Total 1838.756 ml 1159.937 ml Output Total 750 ml 1300 ml Balance 1088.756 ml -140.063 ml Intake Oral 850 ml 50 ml IV Total 988.756 ml 1109.937 ml Output Urine Total 750 ml 1300 ml # Bowel Movements 1 General Appearance: WD/WN HEENT: normocephalic Respiratory/Chest: chest wall non-tender, lungs clear Cardiovascular: normal peripheral pulses, regular rhythm Abdomen: normal bowel sounds, soft, non tender Genitourinary: normal external genitalia Extremities: no cyanosis Skin: no lesions Neurologic/Psychiatric: metal reclamation kettle tender II-XII grossly normal Microbiology Date/Time Source Procedure Growth Status 12/17/17 11:50 Blood Blood Culture - Preliminary NO GROWTH AFTER 24 HOURS Resulted 12/17/17 11:50 Blood Blood Culture - Preliminary NO GROWTH AFTER 24 HOURS Resulted 12/16/17 17:25 Urine,Clean Catch Urine Culture - Final NO GROWTH AFTER 48 HOURS Complete Laboratory Tests 12/18/17 13:35: Activated Partial Thromboplast Time 100H 12/18/17 21:15: Activated Partial Thromboplast Time 64H 12/19/17 03:30: Activated Partial Thromboplast Time 96H, White Blood Count 5.5, Red Blood Count 3.08L, Hemoglobin 9.1L, Hematocrit 27.5L, Mean Corpuscular Volume 89, Mean Corpuscular Hemoglobin 29.7, Mean Corpuscular Hemoglobin Concent 33.2, Red Cell Distribution Width 13.0, Platelet Count 196, Mean Platelet Volume 6.7, Neutrophils (%) (Auto) 62.4, Lymphocytes (%) (Auto) 21.3, Monocytes (%) (Auto) 13.5H, Eosinophils (%) (Auto) 1.6, Basophils (%) (Auto) 1.2, Magnesium Level 1.7L 12/19/17 03:33: Sodium Level 147H, Potassium Level 3.9, Chloride Level 112H, Carbon Dioxide Level 28, Anion Gap 7, Blood Urea Nitrogen 19H, Creatinine 1.4H, Estimat Glomerular Filtration Rate , Glucose Level 134H, Calcium Level 8.1L, Troponin I 0.677H 12/19/17 11:00: Activated Partial Thromboplast Time 61H Current Medications Medications (Trade) Dose Ordered Sig/Denisa Route PRN Reason Start Time Stop Time Status Last Admin Dose Admin Acetaminophen (Tylenol) 650 mg Q4H PRN ORAL Mild Pain/Temp > 100.5 12/17/17 15:00 01/16/18 14:59 12/19/17 10:26 Albuterol/ Ipratropium (Albuterol/ Ipratropium) 3 ml Q4H PRN HHN Shortness of Breath 12/18/17 11:00 12/22/17 10:59 Aspirin (ASA) 81 mg DAILY ORAL 12/17/17 09:00 01/15/18 08:59 12/19/17 09:26 Atorvastatin Calcium (Lipitor) 80 mg BEDTIME ORAL 12/16/17 21:00 01/14/18 20:59 12/17/17 20:31 Enalaprilat (Vasotec) 2.5 mg Q6H PRN IV sbp more than 160mmHg 12/16/17 19:00 01/14/18 18:59 EZETIMIBE (Zetia) 10 mg BEDTIME ORAL 12/16/17 21:00 01/15/18 20:59 12/17/17 20:31 Famotidine (Pepcid I.v.) 20 mg Q12HR IVP 12/17/17 09:00 01/16/18 08:59 12/19/17 09:28 Finasteride (Proscar) 5 mg DAILY ORAL 12/17/17 09:00 01/16/18 08:59 12/19/17 09:28 Gabapentin (Neurontin) 300 mg THREE TIMES A DAY ORAL 12/17/17 09:00 01/15/18 12:59 12/19/17 09:27 Heparin Sodium (Porcine) (Heparin 5000 units/ml) 5,000 units ONCE IV 12/19/17 12:00 12/19/17 13:00 12/19/17 11:52 Heparin Sodium/ Dextrose 500 ml @ 22.548 mls/ hr ADJUST PER PROTOCOL IV 12/19/17 12:00 01/18/18 11:59 12/19/17 11:53 Levofloxacin 150 ml @ 100 mls/hr DAILY IVPB 12/19/17 13:00 12/26/17 12:59 Metoprolol Tartrate (Lopressor) 25 mg Q12HR ORAL 12/18/17 21:00 01/17/18 20:59 Morphine Sulfate (Morphine Sulfate) 2 mg Q4H PRN IVP severe Pain (Pain Scale 7-10) 12/16/17 19:00 12/22/17 18:59 Nitroglycerin (Ntg) 0.4 mg Q5M PRN SL Prn Chest Pain 12/16/17 18:45 01/14/18 18:59 Ondansetron HCl (Zofran) 4 mg Q6H PRN IVP Nausea & Vomiting 12/16/17 19:00 01/14/18 18:59 Polyethylene Glycol (Miralax) 17 gm DAILYPRN PRN ORAL Constipation 12/16/17 19:00 01/14/18 18:59 Sodium Chloride 1,000 ml @ 75 mls/hr [id number] IV 12/16/17 18:45 01/15/18 03:59 12/18/17 23:03 Tamsulosin HCl (Flomax) 0.4 mg BEDTIME ORAL 12/16/17 21:00 01/15/18 20:59 12/17/17 20:31 Temazepam (Restoril) 15 mg HSPRN PRN ORAL Insomnia 12/16/17 19:00 12/22/17 18:59 12/17/17 02:40 Scott Hoover MD Dec 19, 2017 12:04
[2017-12-19] MEDS ORDERED: Albuterol/Ipratropium 3ml neb HHN PRN (14:07)
[2017-12-19] MEDS ORDERED: Nitroglycerin Subl 0.4mg tab SL PRN (14:09)
[2017-12-19] MEDS ORDERED: Morphine Sulfate 2mg/ml Inj IVP PRN (14:09)
[2017-12-19] MEDS ORDERED: Miralax 17gm pkt ORAL PRN (14:11)
[2017-12-19 17:44] LABS: BASOPHILS % (AUTO) 1.1 % (0.0-2.0); EOSINOPHILS % (AUTO) 1.4 % (0.0-3.0); HEMATOCRIT 26.5 % (42.0-52.0); HEMOGLOBIN 9.1 G/DL (14.2-18.0); LYMPHOCYTES % (AUTO) 29.5 % (20.0-45.0); MEAN CORPUSCULAR VOLUME 90 FL (80-99); MONOCYTES % (AUTO) 9.4 % (1.0-10.0); NEUTROPHILS % (AUTO) 58.7 % (45.0-75.0); PLATELET COUNT 198 K/UL (150-450); RED BLOOD COUNT 2.96 M/UL (4.70-6.10); RED CELL DISTRIBUTION WIDTH 12.7 % (11.6-14.8); WHITE BLOOD COUNT 5.8 K/UL (4.8-10.8)
[2017-12-19] MEDS: Heparin 25,000u/D5W 500ml 500 ML IV SCH ×2 (19:00→22:08)
--- NOTE | 2017-12-19 19:28 | Cardiology Progress Note ---
Assessment/Plan Assessment/Plan 1. [id number] myocardial infarction, silent. 2. Fever and leukocytosis. 3. Probable urinary tract infection. 4. Status post recent ureteral stent placement. 5. Nephrolithiasis. 6. Coronary disease with history of stent. 7. History of hemorrhagic CVA, status post evacuation with left-sided hemiparesis. 8. History of deep venous thrombosis and pulmonary emboli status, on anticoagulation with Xarelto. 9. Phtn venous dupelx neg trop down trending still no sx to suggest acs / pe repeat labs is off xarelto on heparin on Ecotrin lwo dose prelim echo noted phtn chronicity unkown d/w transfer center message left for dr amador pt usual card awiat call back to discuss Subjective Cardiovascular: Denies: chest pain, lightheadedness, palpitations Respiratory: Denies: shortness of breath Gastrointestinal/Abdominal: Reports: constipated Genitourinary: Denies: burning Objective Last 24 Hour Vital Signs Date Time Temp Pulse Resp B/P (MAP) Pulse Ox O2 Delivery O2 Flow Rate FiO2 12/19/17 16:00 41 12/19/17 16:00 97.8 41 19 132/78 (96) 99 12/19/17 16:00 Nasal Cannula 3.0 12/19/17 13:40 98.5 45 19 130/65 (86) 98 12/19/17 12:00 39 12/19/17 12:00 Nasal Cannula 3.0 12/19/17 12:00 98.1 39 18 132/57 (82) 98 12/19/17 09:00 41 150/75 12/19/17 08:00 Nasal Cannula 3.0 12/19/17 08:00 97.7 41 20 150/75 (100) 97 12/19/17 08:00 38 12/19/17 04:00 98.6 48 20 150/76 (100) 98 12/19/17 04:00 57 12/19/17 04:00 Nasal Cannula 3.0 12/19/17 00:00 41 12/19/17 00:00 98.9 46 20 143/73 (96) 98 12/19/17 00:00 Nasal Cannula 3.0 12/18/17 21:00 43 145/67 12/18/17 20:00 98.9 48 20 145/67 (93) 99 12/18/17 20:00 Nasal Cannula 3.0 12/18/17 20:00 47 General Appearance: no apparent distress Cardiovascular: normal rate Respiratory/Chest: lungs clear, normal breath sounds Abdomen: normal bowel sounds, non tender, soft Extremities: no swelling Intake and Output 12/18/17 12/19/17 19:00 07:00 Intake Total 1932.365 ml 1160.118 ml Output Total 750 ml 1300 ml Balance 1182.365 ml -139.882 ml Intake Oral 850 ml 50 ml IV Total 1082.365 ml 1110.118 ml Output Urine Total 750 ml 1300 ml # Bowel Movements 1 Laboratory Tests Test 12/18/17 21:15 12/19/17 03:30 12/19/17 03:33 12/19/17 11:00 Activated Partial Thromboplast Time 64 SEC (23-33) H 96 SEC (23-33) H 61 SEC (23-33) H White Blood Count 5.5 K/UL (4.8-10.8) Red Blood Count 3.08 M/UL (4.70-6.10) L Hemoglobin 9.1 G/DL (14.2-18.0) L Hematocrit 27.5 % (42.0-52.0) L Mean Corpuscular Volume 89 FL (80-99) Mean Corpuscular Hemoglobin 29.7 PG (27.0-31.0) Mean Corpuscular Hemoglobin Concent 33.2 G/DL (32.0-36.0) Red Cell Distribution Width 13.0 % (11.6-14.8) Platelet Count 196 K/UL (150-450) Mean Platelet Volume 6.7 FL (6.5-10.1) Neutrophils (%) (Auto) 62.4 % (45.0-75.0) Lymphocytes (%) (Auto) 21.3 % (20.0-45.0) Monocytes (%) (Auto) 13.5 % (1.0-10.0) H Eosinophils (%) (Auto) 1.6 % (0.0-3.0) Basophils (%) (Auto) 1.2 % (0.0-2.0) Magnesium Level 1.7 MG/DL (1.8-2.4) L Sodium Level 147 MMOL/L (136-145) H Potassium Level 3.9 MMOL/L (3.5-5.1) Chloride Level 112 MMOL/L (98-107) H Carbon Dioxide Level 28 MMOL/L (21-32) Anion Gap 7 mmol/L (5-15) Blood Urea Nitrogen 19 mg/dL (7-18) H Creatinine 1.4 MG/DL (0.55-1.30) H Estimat Glomerular Filtration Rate mL/min (>60) Glucose Level 134 MG/DL (74-106) H Calcium Level 8.1 MG/DL (8.5-10.1) L Troponin I 0.677 ng/mL (0.000-0.056) Test 12/19/17 17:35 White Blood Count 5.8 K/UL (4.8-10.8) Red Blood Count 2.96 M/UL (4.70-6.10) L Hemoglobin 9.1 G/DL (14.2-18.0) L Hematocrit 26.5 % (42.0-52.0) L Mean Corpuscular Volume 90 FL (80-99) Mean Corpuscular Hemoglobin 30.6 PG (27.0-31.0) Mean Corpuscular Hemoglobin Concent 34.2 G/DL (32.0-36.0) Red Cell Distribution Width 12.7 % (11.6-14.8) Platelet Count 198 K/UL (150-450) Mean Platelet Volume 6.1 FL (6.5-10.1) L Neutrophils (%) (Auto) 58.7 % (45.0-75.0) Lymphocytes (%) (Auto) 29.5 % (20.0-45.0) Monocytes (%) (Auto) 9.4 % (1.0-10.0) Eosinophils (%) (Auto) 1.4 % (0.0-3.0) Basophils (%) (Auto) 1.1 % (0.0-2.0) Activated Partial Thromboplast Time 108 SEC (23-33) H Microbiology Date/Time Source Procedure Growth Status 12/17/17 11:50 Blood Blood Culture - Preliminary NO GROWTH AFTER 24 HOURS Resulted 12/17/17 11:50 Blood Blood Culture - Preliminary NO GROWTH AFTER 24 HOURS Resulted Chalo Alfonso MD Dec 19, 2017 19:28
--- NOTE | 2017-12-19 19:51 | Internal Med Progress Note ---
Subjective Date of Service: Dec 19, 2017 Physician Name Blair,Mehdi Attending Physician Lito Ron MD Current Medications Medications (Trade) Dose Ordered Sig/Denisa Route PRN Reason Start Time Stop Time Status Last Admin Dose Admin Acetaminophen (Tylenol) 650 mg Q4H PRN ORAL Mild Pain/Temp > 100.5 12/19/17 14:07 01/16/18 14:06 Albuterol/ Ipratropium (Albuterol/ Ipratropium) 3 ml Q4H PRN HHN Shortness of Breath 12/19/17 14:07 12/22/17 14:06 Aspirin (ASA) 81 mg DAILY ORAL 12/20/17 09:00 01/15/18 08:59 Atorvastatin Calcium (Lipitor) 80 mg BEDTIME ORAL 12/19/17 21:00 01/14/18 20:59 Enalaprilat (Vasotec) 2.5 mg Q6H PRN IV sbp more than 160mmHg 12/19/17 14:08 01/14/18 14:07 EZETIMIBE (Zetia) 10 mg BEDTIME ORAL 12/19/17 21:00 01/15/18 20:59 Famotidine (Pepcid I.v.) 20 mg Q12HR IVP 12/19/17 21:00 01/16/18 08:59 Finasteride (Proscar) 5 mg DAILY ORAL 12/20/17 09:00 01/16/18 08:59 Gabapentin (Neurontin) 300 mg THREE TIMES A DAY ORAL 12/19/17 18:00 01/15/18 12:59 12/19/17 17:34 Heparin Sodium/ Dextrose 500 ml @ 17.1 mls/hr ADJUST PER PROTOCOL IV 12/19/17 18:40 01/18/18 18:39 12/19/17 19:00 Levofloxacin 150 ml @ 100 mls/hr Q24H IVPB 12/19/17 15:00 12/26/17 14:59 12/19/17 15:51 Methadone HCl (Methadone HCl) 2.5 mg Q6HR ORAL 12/19/17 18:00 12/26/17 17:59 12/19/17 17:35 Metoprolol Tartrate (Lopressor) 25 mg Q12HR ORAL 12/19/17 21:00 01/17/18 20:59 Morphine Sulfate (Morphine Sulfate) 2 mg Q4H PRN IVP severe Pain (Pain Scale 7-10) 12/19/17 14:09 12/22/17 14:08 Nitroglycerin (Ntg) 0.4 mg Q5M PRN SL Prn Chest Pain 12/19/17 14:09 01/14/18 14:08 Ondansetron HCl (Zofran) 4 mg Q6H PRN IVP Nausea & Vomiting 12/19/17 14:11 01/14/18 14:10 Polyethylene Glycol (Miralax) 17 gm DAILYPRN PRN ORAL Constipation 12/19/17 14:11 01/14/18 14:10 Sodium Chloride 1,000 ml @ 75 mls/hr [id number] IV 12/19/17 14:07 01/15/18 14:06 12/19/17 15:50 Tamsulosin HCl (Flomax) 0.4 mg BEDTIME ORAL 12/19/17 21:00 01/15/18 20:59 Temazepam (Restoril) 15 mg HSPRN PRN ORAL Insomnia 12/19/17 14:12 12/22/17 14:11 Allergies: Coded Allergies: No Known Allergies (Unverified , 12/15/17) ROS Limited/Unobtainable: Yes Subjective 77 YO M admitted with altered mental status. Now NSTEMI. Still bradycardic. Await transfer to [facility] for cardiac cath. Cover for Int Justin-Dr Ron Objective Last Vital Signs Date Time Temp Pulse Resp B/P (MAP) Pulse Ox O2 Delivery O2 Flow Rate FiO2 12/19/17 16:00 41 12/19/17 16:00 97.8 19 132/78 (96) 99 12/19/17 16:00 Nasal Cannula 3.0 12/18/17 19:20 32 Laboratory Tests Test 12/18/17 21:15 12/19/17 03:30 12/19/17 03:33 12/19/17 11:00 Activated Partial Thromboplast Time 64 SEC (23-33) H 96 SEC (23-33) H 61 SEC (23-33) H White Blood Count 5.5 K/UL (4.8-10.8) Red Blood Count 3.08 M/UL (4.70-6.10) L Hemoglobin 9.1 G/DL (14.2-18.0) L Hematocrit 27.5 % (42.0-52.0) L Mean Corpuscular Volume 89 FL (80-99) Mean Corpuscular Hemoglobin 29.7 PG (27.0-31.0) Mean Corpuscular Hemoglobin Concent 33.2 G/DL (32.0-36.0) Red Cell Distribution Width 13.0 % (11.6-14.8) Platelet Count 196 K/UL (150-450) Mean Platelet Volume 6.7 FL (6.5-10.1) Neutrophils (%) (Auto) 62.4 % (45.0-75.0) Lymphocytes (%) (Auto) 21.3 % (20.0-45.0) Monocytes (%) (Auto) 13.5 % (1.0-10.0) H Eosinophils (%) (Auto) 1.6 % (0.0-3.0) Basophils (%) (Auto) 1.2 % (0.0-2.0) Magnesium Level 1.7 MG/DL (1.8-2.4) L Sodium Level 147 MMOL/L (136-145) H Potassium Level 3.9 MMOL/L (3.5-5.1) Chloride Level 112 MMOL/L (98-107) H Carbon Dioxide Level 28 MMOL/L (21-32) Anion Gap 7 mmol/L (5-15) Blood Urea Nitrogen 19 mg/dL (7-18) H Creatinine 1.4 MG/DL (0.55-1.30) H Estimat Glomerular Filtration Rate mL/min (>60) Glucose Level 134 MG/DL (74-106) H Calcium Level 8.1 MG/DL (8.5-10.1) L Troponin I 0.677 ng/mL (0.000-0.056) Test 12/19/17 17:35 White Blood Count 5.8 K/UL (4.8-10.8) Red Blood Count 2.96 M/UL (4.70-6.10) L Hemoglobin 9.1 G/DL (14.2-18.0) L Hematocrit 26.5 % (42.0-52.0) L Mean Corpuscular Volume 90 FL (80-99) Mean Corpuscular Hemoglobin 30.6 PG (27.0-31.0) Mean Corpuscular Hemoglobin Concent 34.2 G/DL (32.0-36.0) Red Cell Distribution Width 12.7 % (11.6-14.8) Platelet Count 198 K/UL (150-450) Mean Platelet Volume 6.1 FL (6.5-10.1) L Neutrophils (%) (Auto) 58.7 % (45.0-75.0) Lymphocytes (%) (Auto) 29.5 % (20.0-45.0) Monocytes (%) (Auto) 9.4 % (1.0-10.0) Eosinophils (%) (Auto) 1.4 % (0.0-3.0) Basophils (%) (Auto) 1.1 % (0.0-2.0) Activated Partial Thromboplast Time 108 SEC (23-33) H Microbiology Date/Time Source Procedure Growth Status 12/17/17 11:50 Blood Blood Culture - Preliminary NO GROWTH AFTER 24 HOURS Resulted 12/17/17 11:50 Blood Blood Culture - Preliminary NO GROWTH AFTER 24 HOURS Resulted Intake and Output 12/18/17 12/19/17 19:00 07:00 Intake Total 1932.365 ml 1160.118 ml Output Total 750 ml 1300 ml Balance 1182.365 ml -139.882 ml Intake Oral 850 ml 50 ml IV Total 1082.365 ml 1110.118 ml Output Urine Total 750 ml 1300 ml # Bowel Movements 1 Objective Objective General: No acute distress, awake and alert HEENT: NCAT, sclera anicteric, PERRL, EOMI. Left facial droop. Neck: Supple, no significant jugular venous distention, Lungs: Fair inspiratory effort, no Wheeze or Rales. Heart: Regular rate and rhythm, normal S1/S2, no murmurs, distant heart sound. Abdomen: soft, nontender, nondistended. Normoactive bowel sounds. Obesity. Extremities: No Cyanosis , clubbing or edema. Neuro: A&O x 3, Able to move right side extremities, left side hemiparesis. Psych: Normal mood and affect Assessment/Plan Problem List: (1) NSTEMI (non-ST elevated myocardial infarction) Assessment & Plan: On heparin drip. Will require cardiac cath. Await transfer to [facility]-see cardiology note. (2) UTI (urinary tract infection) Assessment & Plan: [place]. Continue cefepime per ID (3) Sepsis Assessment & Plan: [place] - continue cefepime per ID (4) Renal calculus (5) Hypertension (6) Diabetes mellitus type II, uncontrolled (7) BPH (benign prostatic hyperplasia) (8) Deep venous embolism and thrombosis of left lower extremity Assessment & Plan: on heparin drip (9) Cerebral vascular disease (10) Hypercholesteremia (11) Bradycardia Assessment & Plan: await EP cardiology consult. Status: not improved Mehdi Blair MD Dec 19, 2017 19:51
[2017-12-19] MEDS: Atorvastatin 80mg tab ORAL SCH (20:27)
[2017-12-19] MEDS: Tamsulosin 0.4mg cap ORAL SCH (20:27)
[2017-12-19] MEDS: Enalaprilat 2.5mg/2ml Inj IV PRN (20:28)
[2017-12-19] MEDS ORDERED: Tubing IV Secondary IV ONE (20:53)
[2017-12-20] VITALS: BP 136/58
[2017-12-20] MEDS ORDERED: Heparin 5000 units/ml inj IV SCH (02:00)
[2017-12-20] MEDS: Heparin 25,000u/D5W 500ml 500 ML IV SCH (02:42)
[2017-12-20 04:00] VITALS: BP 132/64
[2017-12-20 04:48] LABS: BASOPHILS % (AUTO) 0.5 % (0.0-2.0); EOSINOPHILS % (AUTO) 2.1 % (0.0-3.0); HEMATOCRIT 29.2 % (42.0-52.0); HEMOGLOBIN 9.6 G/DL (14.2-18.0); LYMPHOCYTES % (AUTO) 25.6 % (20.0-45.0); MEAN CORPUSCULAR VOLUME 89 FL (80-99); MONOCYTES % (AUTO) 8.2 % (1.0-10.0); NEUTROPHILS % (AUTO) 63.5 % (45.0-75.0); PLATELET COUNT 210 K/UL (150-450); RED BLOOD COUNT 3.29 M/UL (4.70-6.10); RED CELL DISTRIBUTION WIDTH 12.7 % (11.6-14.8); WHITE BLOOD COUNT 7.3 K/UL (4.8-10.8)
[2017-12-20 05:02] LABS: ALANINE AMINOTRANSFERASE 180 U/L (12-78); ALBUMIN 2.2 G/DL (3.4-5.0); ALBUMIN/GLOBULIN RATIO 0.5 (1.0-2.7); ALKALINE PHOSPHATASE 201 U/L (46-116); ANION GAP 4 mmol/L (5-15); ASPARTATE AMINO TRANSFERASE 122 U/L (15-37); BILIRUBIN,TOTAL 0.5 MG/DL (0.2-1.0); BLOOD UREA NITROGEN 18 mg/dL (7-18); CALCIUM 8.2 MG/DL (8.5-10.1); CARBON DIOXIDE 29 MMOL/L (21-32); CHLORIDE 110 MMOL/L (98-107); CREATININE 1.4 MG/DL (0.55-1.30); PHOSPHORUS 2.9 MG/DL (2.5-4.9); POTASSIUM 3.9 MMOL/L (3.5-5.1); SODIUM 143 MMOL/L (136-145)
--- NOTE | 2017-12-20 07:50 | Urology Progress Note ---
Assessment/Plan Assessment/Plan 1. History of nephrolithiasis. 2. History of colic and hydro with right indwelling ureteral stent. 3. Benign prostatic hypertrophy history. 4. Hematuria. 5. Urinary tract infection. 6. Proteinuria. 7. Hydrocele. 8. Urinary frequency history. 9. Probable neurogenic bladder. 10. Acute kidney injury, which is better. 11. Sepsis. abx as ordered flomax and proscar tx of stones later Subjective Allergies: Coded Allergies: No Known Allergies (Unverified , 12/15/17) Subjective lethargic, voiding, condom cath Objective Last 24 Hour Vital Signs Date Time Temp Pulse Resp B/P (MAP) Pulse Ox O2 Delivery O2 Flow Rate FiO2 12/20/17 04:00 98.9 53 21 132/64 (86) 91 12/20/17 04:00 42 12/20/17 00:00 42 12/20/17 00:00 98.7 47 21 136/58 (84) 94 12/19/17 21:00 Nasal Cannula 3.0 12/19/17 20:33 98 175/82 12/19/17 20:28 175/82 12/19/17 20:00 47 12/19/17 20:00 98.9 45 22 165/82 (109) 98 12/19/17 16:00 41 12/19/17 16:00 97.8 41 19 132/78 (96) 99 12/19/17 16:00 Nasal Cannula 3.0 12/19/17 13:40 98.5 45 19 130/65 (86) 98 12/19/17 12:00 39 12/19/17 12:00 Nasal Cannula 3.0 12/19/17 12:00 98.1 39 18 132/57 (82) 98 12/19/17 09:00 41 150/75 12/19/17 08:00 Nasal Cannula 3.0 12/19/17 08:00 97.7 41 20 150/75 (100) 97 12/19/17 08:00 38 Intake and Output 12/19/17 12/20/17 19:00 07:00 Intake Total 2166.845 ml 178.6 ml Output Total 825 ml 2100 ml Balance 1341.845 ml -1921.4 ml Intake Oral 580 ml IV Total 1586.845 ml 178.6 ml Output Urine Total 825 ml 2100 ml # Bowel Movements 1 Microbiology Date/Time Source Procedure Growth Status 12/17/17 11:50 Blood Blood Culture - Preliminary NO GROWTH AFTER 48 HOURS Resulted 12/15/17 17:45 Nasal Nares MRSA Culture - Final NO METHICILLIN RESISTANT STAPH AUREUS... Complete 12/16/17 17:25 Urine,Clean Catch Urine Culture - Final NO GROWTH AFTER 48 HOURS Complete 12/15/17 17:45 Rectum VRE Culture - Final Enterococcus Faecium - Vre Complete 12/15/17 17:45 Rectum - Final NO CARBAPENEM-RESISTANT ENTEROBACTERI... Complete Current Medications Medications (Trade) Dose Ordered Sig/Denisa Route PRN Reason Start Time Stop Time Status Last Admin Dose Admin Acetaminophen (Tylenol) 650 mg Q4H PRN ORAL Mild Pain/Temp > 100.5 12/19/17 14:07 01/16/18 14:06 Albuterol/ Ipratropium (Albuterol/ Ipratropium) 3 ml Q4H PRN HHN Shortness of Breath 12/19/17 14:07 12/22/17 14:06 Aspirin (ASA) 81 mg DAILY ORAL 12/20/17 09:00 01/15/18 08:59 Atorvastatin Calcium (Lipitor) 80 mg BEDTIME ORAL 12/19/17 21:00 01/14/18 20:59 12/19/17 20:27 Enalaprilat (Vasotec) 2.5 mg Q6H PRN IV sbp more than 160mmHg 12/19/17 14:08 01/14/18 14:07 12/19/17 20:28 EZETIMIBE (Zetia) 10 mg BEDTIME ORAL 12/19/17 21:00 01/15/18 20:59 12/19/17 20:26 Famotidine (Pepcid I.v.) 20 mg Q12HR IVP 12/19/17 21:00 01/16/18 08:59 12/19/17 20:26 Finasteride (Proscar) 5 mg DAILY ORAL 12/20/17 09:00 01/16/18 08:59 Gabapentin (Neurontin) 300 mg THREE TIMES A DAY ORAL 12/19/17 18:00 01/15/18 12:59 12/19/17 17:34 Heparin Sodium/ Dextrose 500 ml @ 20.9 mls/hr ADJUST PER PROTOCOL IV 12/20/17 02:00 01/18/18 18:39 12/20/17 02:42 Levofloxacin 150 ml @ 100 mls/hr Q24H IVPB 12/19/17 15:00 12/26/17 14:59 12/19/17 15:51 Methadone HCl (Methadone HCl) 2.5 mg Q6HR ORAL 12/19/17 18:00 12/26/17 17:59 12/20/17 06:08 Metoprolol Tartrate (Lopressor) 25 mg Q12HR ORAL 12/19/17 21:00 01/17/18 20:59 12/19/17 20:33 Morphine Sulfate (Morphine Sulfate) 2 mg Q4H PRN IVP severe Pain (Pain Scale 7-10) 12/19/17 14:09 12/22/17 14:08 Nitroglycerin (Ntg) 0.4 mg Q5M PRN SL Prn Chest Pain 12/19/17 14:09 01/14/18 14:08 Ondansetron HCl (Zofran) 4 mg Q6H PRN IVP Nausea & Vomiting 12/19/17 14:11 01/14/18 14:10 Polyethylene Glycol (Miralax) 17 gm DAILYPRN PRN ORAL Constipation 12/19/17 14:11 01/14/18 14:10 Sodium Chloride 1,000 ml @ 75 mls/hr [id number] IV 12/19/17 14:07 01/15/18 14:06 12/19/17 15:50 Tamsulosin HCl (Flomax) 0.4 mg BEDTIME ORAL 12/19/17 21:00 01/15/18 20:59 12/19/17 20:27 Temazepam (Restoril) 15 mg HSPRN PRN ORAL Insomnia 12/19/17 14:12 12/22/17 14:11 Laboratory Tests 12/19/17 11:00: Activated Partial Thromboplast Time 61H 12/19/17 17:35: Activated Partial Thromboplast Time 108H, White Blood Count 5.8, Red Blood Count 2.96L, Hemoglobin 9.1L, Hematocrit 26.5L, Mean Corpuscular Volume 90, Mean Corpuscular Hemoglobin 30.6, Mean Corpuscular Hemoglobin Concent 34.2, Red Cell Distribution Width 12.7, Platelet Count 198, Mean Platelet Volume 6.1L, Neutrophils (%) (Auto) 58.7, Lymphocytes (%) (Auto) 29.5, Monocytes (%) (Auto) 9.4, Eosinophils (%) (Auto) 1.4, Basophils (%) (Auto) 1.1 12/20/17 01:12: Activated Partial Thromboplast Time 55H 12/20/17 04:00: White Blood Count 7.3, Red Blood Count 3.29L, Hemoglobin 9.6L, Hematocrit 29.2L , Mean Corpuscular Volume 89, Mean Corpuscular Hemoglobin 29.1, Mean Corpuscular Hemoglobin Concent 32.8, Red Cell Distribution Width 12.7, Platelet Count 210, Mean Platelet Volume 6.4L, Neutrophils (%) (Auto) 63.5, Lymphocytes ( %) (Auto) 25.6, Monocytes (%) (Auto) 8.2, Eosinophils (%) (Auto) 2.1, Basophils (%) (Auto) 0.5, Erythrocyte Sedimentation Rate 108H, Sodium Level 143, Potassium Level 3.9, Chloride Level 110H, Carbon Dioxide Level 29, Anion Gap 4L , Blood Urea Nitrogen 18, Creatinine 1.4H, Estimat Glomerular Filtration Rate , Glucose Level 120H, Calcium Level 8.2L, Phosphorus Level 2.9, Magnesium Level 1.8, Total Bilirubin 0.5, Aspartate Amino Transf (AST/SGOT) 122H, Alanine Aminotransferase (ALT/SGPT) 180H, Alkaline Phosphatase 201H, Troponin I 0.539H, Total Protein 6.3L, Albumin 2.2L, Globulin 4.1, Albumin/Globulin Ratio 0.5L Height (Feet): 5 Height (Inches): 7.00 Weight (Pounds): 215 Objective abdomen soft, urine grossly yellow/ciara KUB noted Kevin Thompson MD Dec 20, 2017 07:50
[2017-12-20 08:00] VITALS: BP 145/59
[2017-12-20] MEDS: Metoprolol 25mg tab ORAL SCH (09:00)
[2017-12-20] MEDS: Aspirin Baby 81mg ORAL SCH (09:04)
--- NOTE | 2017-12-20 10:34 | Pulmonology Progress Note ---
Assessment/Plan Problems: (1) Sepsis (2) NSTEMI (non-ST elevated myocardial infarction) (3) ATN (acute tubular necrosis) (4) Renal calculus (5) CVA, old, hemiparesis (6) Chronic anticoagulation (7) Cerebral vascular disease (8) Hypertension Assessment/Plan afebrile repeat BC are negative on IV heparin bradycardic, B-grey stopped monitor BP repeat Troponin talked to transfer center extensively, they are over their capacity. Subjective ROS Limited/Unobtainable: No Constitutional: Reports: no symptoms HEENT: Repors: no symptoms Allergies: Coded Allergies: No Known Allergies (Unverified , 12/15/17) Objective Last 24 Hour Vital Signs Date Time Temp Pulse Resp B/P (MAP) Pulse Ox O2 Delivery O2 Flow Rate FiO2 12/20/17 09:00 37 143/69 12/20/17 08:31 98 Nasal Cannula 3.0 32 12/20/17 08:31 Nasal Cannula 3.0 32 12/20/17 08:31 65 18 Nasal Cannula 3.0 32 12/20/17 04:00 98.9 53 21 132/64 (86) 91 12/20/17 04:00 42 12/20/17 00:00 42 12/20/17 00:00 98.7 47 21 136/58 (84) 94 12/19/17 21:00 Nasal Cannula 3.0 12/19/17 20:33 98 175/82 12/19/17 20:28 175/82 12/19/17 20:00 47 12/19/17 20:00 98.9 45 22 165/82 (109) 98 12/19/17 16:00 41 12/19/17 16:00 97.8 41 19 132/78 (96) 99 12/19/17 16:00 Nasal Cannula 3.0 12/19/17 13:40 98.5 45 19 130/65 (86) 98 12/19/17 12:00 39 12/19/17 12:00 Nasal Cannula 3.0 12/19/17 12:00 98.1 39 18 132/57 (82) 98 Intake and Output 12/19/17 12/20/17 18:59 06:59 Intake Total 2260.635 ml 178.6 ml Output Total 825 ml 2100 ml Balance 1435.635 ml -1921.4 ml Intake Oral 580 ml IV Total 1680.635 ml 178.6 ml Output Urine Total 825 ml 2100 ml # Bowel Movements 1 General Appearance: WD/WN HEENT: normocephalic Respiratory/Chest: chest wall non-tender, lungs clear Cardiovascular: normal peripheral pulses, normal rate Abdomen: normal bowel sounds, soft, non tender, no organomegaly Genitourinary: normal external genitalia Skin: no ulcers Microbiology Date/Time Source Procedure Growth Status 12/17/17 11:50 Blood Blood Culture - Preliminary NO GROWTH AFTER 48 HOURS Resulted 12/17/17 11:50 Blood Blood Culture - Preliminary NO GROWTH AFTER 48 HOURS Resulted Laboratory Tests 12/19/17 11:00: Activated Partial Thromboplast Time 61H 12/19/17 17:35: Activated Partial Thromboplast Time 108H, White Blood Count 5.8, Red Blood Count 2.96L, Hemoglobin 9.1L, Hematocrit 26.5L, Mean Corpuscular Volume 90, Mean Corpuscular Hemoglobin 30.6, Mean Corpuscular Hemoglobin Concent 34.2, Red Cell Distribution Width 12.7, Platelet Count 198, Mean Platelet Volume 6.1L, Neutrophils (%) (Auto) 58.7, Lymphocytes (%) (Auto) 29.5, Monocytes (%) (Auto) 9.4, Eosinophils (%) (Auto) 1.4, Basophils (%) (Auto) 1.1 12/20/17 01:12: Activated Partial Thromboplast Time 55H 12/20/17 04:00: White Blood Count 7.3, Red Blood Count 3.29L, Hemoglobin 9.6L, Hematocrit 29.2L , Mean Corpuscular Volume 89, Mean Corpuscular Hemoglobin 29.1, Mean Corpuscular Hemoglobin Concent 32.8, Red Cell Distribution Width 12.7, Platelet Count 210, Mean Platelet Volume 6.4L, Neutrophils (%) (Auto) 63.5, Lymphocytes ( %) (Auto) 25.6, Monocytes (%) (Auto) 8.2, Eosinophils (%) (Auto) 2.1, Basophils (%) (Auto) 0.5, Erythrocyte Sedimentation Rate 108H, Sodium Level 143, Potassium Level 3.9, Chloride Level 110H, Carbon Dioxide Level 29, Anion Gap 4L , Blood Urea Nitrogen 18, Creatinine 1.4H, Estimat Glomerular Filtration Rate , Glucose Level 120H, Calcium Level 8.2L, Phosphorus Level 2.9, Magnesium Level 1.8, Total Bilirubin 0.5, Aspartate Amino Transf (AST/SGOT) 122H, Alanine Aminotransferase (ALT/SGPT) 180H, Alkaline Phosphatase 201H, Troponin I 0.539H, Total Protein 6.3L, Albumin 2.2L, Globulin 4.1, Albumin/Globulin Ratio 0.5L 12/20/17 08:00: Activated Partial Thromboplast Time 89H Current Medications Medications (Trade) Dose Ordered Sig/Denisa Route PRN Reason Start Time Stop Time Status Last Admin Dose Admin Acetaminophen (Tylenol) 650 mg Q4H PRN ORAL Mild Pain/Temp > 100.5 12/19/17 14:07 01/16/18 14:06 Albuterol/ Ipratropium (Albuterol/ Ipratropium) 3 ml Q4H PRN HHN Shortness of Breath 12/19/17 14:07 12/22/17 14:06 Aspirin (ASA) 81 mg DAILY ORAL 12/20/17 09:00 01/15/18 08:59 12/20/17 09:04 Atorvastatin Calcium (Lipitor) 80 mg BEDTIME ORAL 12/19/17 21:00 01/14/18 20:59 12/19/17 20:27 Enalaprilat (Vasotec) 2.5 mg Q6H PRN IV sbp more than 160mmHg 12/19/17 14:08 01/14/18 14:07 12/19/17 20:28 EZETIMIBE (Zetia) 10 mg BEDTIME ORAL 12/19/17 21:00 01/15/18 20:59 12/19/17 20:26 Famotidine (Pepcid I.v.) 20 mg Q12HR IVP 12/19/17 21:00 01/16/18 08:59 12/20/17 09:04 Finasteride (Proscar) 5 mg DAILY ORAL 12/20/17 09:00 01/16/18 08:59 12/20/17 09:04 Gabapentin (Neurontin) 300 mg THREE TIMES A DAY ORAL 12/19/17 18:00 01/15/18 12:59 12/20/17 09:04 Heparin Sodium/ Dextrose 500 ml @ 20.9 mls/hr ADJUST PER PROTOCOL IV 12/20/17 02:00 01/18/18 18:39 12/20/17 02:42 Levofloxacin 150 ml @ 100 mls/hr Q24H IVPB 12/19/17 15:00 12/26/17 14:59 12/19/17 15:51 Methadone HCl (Methadone HCl) 2.5 mg Q6HR ORAL 12/19/17 18:00 12/26/17 17:59 12/20/17 06:08 Morphine Sulfate (Morphine Sulfate) 2 mg Q4H PRN IVP severe Pain (Pain Scale 7-10) 12/19/17 14:09 12/22/17 14:08 Nitroglycerin (Ntg) 0.4 mg Q5M PRN SL Prn Chest Pain 12/19/17 14:09 01/14/18 14:08 Ondansetron HCl (Zofran) 4 mg Q6H PRN IVP Nausea & Vomiting 12/19/17 14:11 01/14/18 14:10 Polyethylene Glycol (Miralax) 17 gm DAILYPRN PRN ORAL Constipation 12/19/17 14:11 01/14/18 14:10 Sodium Chloride 1,000 ml @ 75 mls/hr [id number] IV 12/19/17 14:07 01/15/18 14:06 12/19/17 15:50 Tamsulosin HCl (Flomax) 0.4 mg BEDTIME ORAL 12/19/17 21:00 01/15/18 20:59 12/19/17 20:27 Temazepam (Restoril) 15 mg HSPRN PRN ORAL Insomnia 12/19/17 14:12 12/22/17 14:11 Scott Hoover MD Dec 20, 2017 10:34
[2017-12-20 12:00] VITALS: BP 157/68
--- NOTE | 2017-12-20 12:09 | Cardiology Progress Note ---
Assessment/Plan Assessment/Plan 1. [id number] myocardial infarction, silent. 2. Fever and leukocytosis. 3. Probable urinary tract infection. 4. Status post recent ureteral stent placement. 5. Nephrolithiasis. 6. Coronary disease with history of stent. 7. History of hemorrhagic CVA, status post evacuation with left-sided hemiparesis. 8. History of deep venous thrombosis and pulmonary emboli status, on anticoagulation with Xarelto. 9. Phtn venous dupelx neg trop down trending still no sx to suggest acs / pe repeat labs is off xarelto on heparin on Ecotrin lwo dose prelim echo noted phtn chronicity unknown d/w transfer center d/w dr amador last nite d/w dr oliver today d/w transfer center last [facility] su[facility] today d/w d/w dr avila awaits bed at [facility] hopefully today or tomorrow but no guarantees other option other facilities , [facility] or [facility] of note: he did not experience any cp prior to his stent in 2004 only sob Subjective Cardiovascular: Denies: lightheadedness, palpitations Respiratory: Denies: shortness of breath Gastrointestinal/Abdominal: Denies: abdominal pain Genitourinary: Denies: burning Objective Last 24 Hour Vital Signs Date Time Temp Pulse Resp B/P (MAP) Pulse Ox O2 Delivery O2 Flow Rate FiO2 12/20/17 09:00 Nasal Cannula 3.0 12/20/17 09:00 37 143/69 12/20/17 08:31 98 Nasal Cannula 3.0 32 12/20/17 08:31 Nasal Cannula 3.0 32 12/20/17 08:31 65 18 Nasal Cannula 3.0 32 12/20/17 04:00 98.9 53 21 132/64 (86) 91 12/20/17 04:00 42 12/20/17 00:00 42 12/20/17 00:00 98.7 47 21 136/58 (84) 94 12/19/17 21:00 Nasal Cannula 3.0 12/19/17 20:33 98 175/82 12/19/17 20:28 175/82 12/19/17 20:00 47 12/19/17 20:00 98.9 45 22 165/82 (109) 98 12/19/17 16:00 41 12/19/17 16:00 97.8 41 19 132/78 (96) 99 12/19/17 16:00 Nasal Cannula 3.0 12/19/17 13:40 98.5 45 19 130/65 (86) 98 General Appearance: no apparent distress, alert Neck: supple Cardiovascular: normal rate, regular rhythm Respiratory/Chest: lungs clear, normal breath sounds Abdomen: normal bowel sounds, non tender, soft Extremities: no swelling Intake and Output 12/19/17 12/20/17 18:59 06:59 Intake Total 2260.635 ml 178.6 ml Output Total 825 ml 2100 ml Balance 1435.635 ml -1921.4 ml Intake Oral 580 ml IV Total 1680.635 ml 178.6 ml Output Urine Total 825 ml 2100 ml # Bowel Movements 1 Laboratory Tests Test 12/19/17 17:35 12/20/17 01:12 12/20/17 04:00 12/20/17 07:55 White Blood Count 5.8 K/UL (4.8-10.8) 7.3 K/UL (4.8-10.8) Red Blood Count 2.96 M/UL (4.70-6.10) L 3.29 M/UL (4.70-6.10) L Hemoglobin 9.1 G/DL (14.2-18.0) L 9.6 G/DL (14.2-18.0) L Hematocrit 26.5 % (42.0-52.0) L 29.2 % (42.0-52.0) L Mean Corpuscular Volume 90 FL (80-99) 89 FL (80-99) Mean Corpuscular Hemoglobin 30.6 PG (27.0-31.0) 29.1 PG (27.0-31.0) Mean Corpuscular Hemoglobin Concent 34.2 G/DL (32.0-36.0) 32.8 G/DL (32.0-36.0) Red Cell Distribution Width 12.7 % (11.6-14.8) 12.7 % (11.6-14.8) Platelet Count 198 K/UL (150-450) 210 K/UL (150-450) Mean Platelet Volume 6.1 FL (6.5-10.1) L 6.4 FL (6.5-10.1) L Neutrophils (%) (Auto) 58.7 % (45.0-75.0) 63.5 % (45.0-75.0) Lymphocytes (%) (Auto) 29.5 % (20.0-45.0) 25.6 % (20.0-45.0) Monocytes (%) (Auto) 9.4 % (1.0-10.0) 8.2 % (1.0-10.0) Eosinophils (%) (Auto) 1.4 % (0.0-3.0) 2.1 % (0.0-3.0) Basophils (%) (Auto) 1.1 % (0.0-2.0) 0.5 % (0.0-2.0) Activated Partial Thromboplast Time 108 SEC (23-33) H 55 SEC (23-33) H Erythrocyte Sedimentation Rate 108 MM/HR (0-20) H Sodium Level 143 MMOL/L (136-145) Potassium Level 3.9 MMOL/L (3.5-5.1) Chloride Level 110 MMOL/L (98-107) H Carbon Dioxide Level 29 MMOL/L (21-32) Anion Gap 4 mmol/L (5-15) L Blood Urea Nitrogen 18 mg/dL (7-18) Creatinine 1.4 MG/DL (0.55-1.30) H Estimat Glomerular Filtration Rate mL/min (>60) Glucose Level 120 MG/DL (74-106) H Calcium Level 8.2 MG/DL (8.5-10.1) L Phosphorus Level 2.9 MG/DL (2.5-4.9) Magnesium Level 1.8 MG/DL (1.8-2.4) Total Bilirubin 0.5 MG/DL (0.2-1.0) Aspartate Amino Transf (AST/SGOT) 122 U/L (15-37) H Alanine Aminotransferase (ALT/SGPT) 180 U/L (12-78) H Alkaline Phosphatase 201 U/L (46-116) H Troponin I 0.539 ng/mL (0.000-0.056) 0.397 ng/mL (0.000-0.056) Total Protein 6.3 G/DL (6.4-8.2) L Albumin 2.2 G/DL (3.4-5.0) L Globulin 4.1 g/dL Albumin/Globulin Ratio 0.5 (1.0-2.7) L Test 12/20/17 08:00 Activated Partial Thromboplast Time 89 SEC (23-33) H Chalo Alfonso MD Dec 20, 2017 12:09
[2017-12-20 16:00] VITALS: BP 138/60
--- NOTE | 2017-12-20 16:02 | Cardiac Electrophysiology PN ---
Subjective Subjective EP consult dictated. [id number] Objective Last 24 Hour Vital Signs Date Time Temp Pulse Resp B/P (MAP) Pulse Ox O2 Delivery O2 Flow Rate FiO2 12/20/17 12:00 41 12/20/17 12:00 97.9 44 16 157/68 (97) 99 12/20/17 09:00 Nasal Cannula 3.0 12/20/17 09:00 37 143/69 12/20/17 08:31 98 Nasal Cannula 3.0 32 12/20/17 08:31 Nasal Cannula 3.0 32 12/20/17 08:31 65 18 Nasal Cannula 3.0 32 12/20/17 08:00 46 12/20/17 08:00 98.3 46 16 145/59 (87) 92 12/20/17 04:00 98.9 53 21 132/64 (86) 91 12/20/17 04:00 42 12/20/17 00:00 42 12/20/17 00:00 98.7 47 21 136/58 (84) 94 12/19/17 21:00 Nasal Cannula 3.0 12/19/17 20:33 98 175/82 12/19/17 20:28 175/82 12/19/17 20:00 47 12/19/17 20:00 98.9 45 22 165/82 (109) 98 Intake and Output 12/19/17 12/20/17 18:59 06:59 Intake Total 2260.635 ml 178.6 ml Output Total 825 ml 2100 ml Balance 1435.635 ml -1921.4 ml Intake Oral 580 ml IV Total 1680.635 ml 178.6 ml Output Urine Total 825 ml 2100 ml # Bowel Movements 1 Laboratory Tests Test 12/19/17 17:35 12/20/17 01:12 12/20/17 04:00 12/20/17 07:55 White Blood Count 5.8 K/UL (4.8-10.8) 7.3 K/UL (4.8-10.8) Red Blood Count 2.96 M/UL (4.70-6.10) L 3.29 M/UL (4.70-6.10) L Hemoglobin 9.1 G/DL (14.2-18.0) L 9.6 G/DL (14.2-18.0) L Hematocrit 26.5 % (42.0-52.0) L 29.2 % (42.0-52.0) L Mean Corpuscular Volume 90 FL (80-99) 89 FL (80-99) Mean Corpuscular Hemoglobin 30.6 PG (27.0-31.0) 29.1 PG (27.0-31.0) Mean Corpuscular Hemoglobin Concent 34.2 G/DL (32.0-36.0) 32.8 G/DL (32.0-36.0) Red Cell Distribution Width 12.7 % (11.6-14.8) 12.7 % (11.6-14.8) Platelet Count 198 K/UL (150-450) 210 K/UL (150-450) Mean Platelet Volume 6.1 FL (6.5-10.1) L 6.4 FL (6.5-10.1) L Neutrophils (%) (Auto) 58.7 % (45.0-75.0) 63.5 % (45.0-75.0) Lymphocytes (%) (Auto) 29.5 % (20.0-45.0) 25.6 % (20.0-45.0) Monocytes (%) (Auto) 9.4 % (1.0-10.0) 8.2 % (1.0-10.0) Eosinophils (%) (Auto) 1.4 % (0.0-3.0) 2.1 % (0.0-3.0) Basophils (%) (Auto) 1.1 % (0.0-2.0) 0.5 % (0.0-2.0) Activated Partial Thromboplast Time 108 SEC (23-33) H 55 SEC (23-33) H Erythrocyte Sedimentation Rate 108 MM/HR (0-20) H Sodium Level 143 MMOL/L (136-145) Potassium Level 3.9 MMOL/L (3.5-5.1) Chloride Level 110 MMOL/L (98-107) H Carbon Dioxide Level 29 MMOL/L (21-32) Anion Gap 4 mmol/L (5-15) L Blood Urea Nitrogen 18 mg/dL (7-18) Creatinine 1.4 MG/DL (0.55-1.30) H Estimat Glomerular Filtration Rate mL/min (>60) Glucose Level 120 MG/DL (74-106) H Calcium Level 8.2 MG/DL (8.5-10.1) L Phosphorus Level 2.9 MG/DL (2.5-4.9) Magnesium Level 1.8 MG/DL (1.8-2.4) Total Bilirubin 0.5 MG/DL (0.2-1.0) Aspartate Amino Transf (AST/SGOT) 122 U/L (15-37) H Alanine Aminotransferase (ALT/SGPT) 180 U/L (12-78) H Alkaline Phosphatase 201 U/L (46-116) H Troponin I 0.539 ng/mL (0.000-0.056) 0.397 ng/mL (0.000-0.056) Total Protein 6.3 G/DL (6.4-8.2) L Albumin 2.2 G/DL (3.4-5.0) L Globulin 4.1 g/dL Albumin/Globulin Ratio 0.5 (1.0-2.7) L Test 12/20/17 08:00 Activated Partial Thromboplast Time 89 SEC (23-33) H Romie Powell MD Dec 20, 2017 16:02
--- NOTE | 2017-12-20 17:52 | Infectious Diseases Prog Note ---
Assessment/Plan Assessment/Plan ASSESSMENT: The patient is a 77-year-old male with: -. Sepsis 2ry to UTI C/w bacteremia US : Right nephroureteral stent and right nephrolithiasis, also previously demonstrated -ucx PsA (finch S); repeat ucx NTD -12/15 Bcx 1/ GNR -CT abd/p: Multiple nonobstructive stones within both kidneys as described above. Right ureteral stent in good position. No hydronephrosis. Perinephric stranding nonspecific. Moderate fecal retention. Prostate hypertrophy.Gallstones versus sludge. -. Leukocytosis, SP -. Fever, improvinng -. Non-STEMI. -. Anemia. . Renal stone s/p recent stent . Hypertension. . CAD. . Diabetes. . BPH. . History of DVT. . History of CVA. VRE colonized PLAN: Start IV Levaquin d# 2/ 11 SP IV cefepime day # 4 Monitor CBC and BMP. Monitor cultures (blood ) Uro fup Subjective Allergies: Coded Allergies: No Known Allergies (Unverified , 12/15/17) Subjective Afebrile Comfortable Objective Vital Signs Last 24 Hour Vital Signs Date Time Temp Pulse Resp B/P (MAP) Pulse Ox O2 Delivery O2 Flow Rate FiO2 12/20/17 12:00 41 12/20/17 12:00 97.9 44 16 157/68 (97) 99 12/20/17 09:00 Nasal Cannula 3.0 12/20/17 09:00 37 143/69 12/20/17 08:31 98 Nasal Cannula 3.0 32 12/20/17 08:31 Nasal Cannula 3.0 32 12/20/17 08:31 65 18 Nasal Cannula 3.0 32 12/20/17 08:00 46 12/20/17 08:00 98.3 46 16 145/59 (87) 92 12/20/17 04:00 98.9 53 21 132/64 (86) 91 12/20/17 04:00 42 12/20/17 00:00 42 12/20/17 00:00 98.7 47 21 136/58 (84) 94 12/19/17 21:00 Nasal Cannula 3.0 12/19/17 20:33 98 175/82 12/19/17 20:28 175/82 12/19/17 20:00 47 12/19/17 20:00 98.9 45 22 165/82 (109) 98 Height (Feet): 5 Height (Inches): 7.00 Weight (Pounds): 215 HEENT: anicteric Respiratory/Chest: no respiratory distress Cardiovascular: regular rhythm Abdomen: no organomegaly Laboratory Tests Test 12/20/17 01:12 12/20/17 04:00 12/20/17 07:55 12/20/17 08:00 Activated Partial Thromboplast Time 55 SEC (23-33) H 89 SEC (23-33) H White Blood Count 7.3 K/UL (4.8-10.8) Red Blood Count 3.29 M/UL (4.70-6.10) L Hemoglobin 9.6 G/DL (14.2-18.0) L Hematocrit 29.2 % (42.0-52.0) L Mean Corpuscular Volume 89 FL (80-99) Mean Corpuscular Hemoglobin 29.1 PG (27.0-31.0) Mean Corpuscular Hemoglobin Concent 32.8 G/DL (32.0-36.0) Red Cell Distribution Width 12.7 % (11.6-14.8) Platelet Count 210 K/UL (150-450) Mean Platelet Volume 6.4 FL (6.5-10.1) L Neutrophils (%) (Auto) 63.5 % (45.0-75.0) Lymphocytes (%) (Auto) 25.6 % (20.0-45.0) Monocytes (%) (Auto) 8.2 % (1.0-10.0) Eosinophils (%) (Auto) 2.1 % (0.0-3.0) Basophils (%) (Auto) 0.5 % (0.0-2.0) Erythrocyte Sedimentation Rate 108 MM/HR (0-20) H Sodium Level 143 MMOL/L (136-145) Potassium Level 3.9 MMOL/L (3.5-5.1) Chloride Level 110 MMOL/L (98-107) H Carbon Dioxide Level 29 MMOL/L (21-32) Anion Gap 4 mmol/L (5-15) L Blood Urea Nitrogen 18 mg/dL (7-18) Creatinine 1.4 MG/DL (0.55-1.30) H Estimat Glomerular Filtration Rate mL/min (>60) Glucose Level 120 MG/DL (74-106) H Calcium Level 8.2 MG/DL (8.5-10.1) L Phosphorus Level 2.9 MG/DL (2.5-4.9) Magnesium Level 1.8 MG/DL (1.8-2.4) Total Bilirubin 0.5 MG/DL (0.2-1.0) Aspartate Amino Transf (AST/SGOT) 122 U/L (15-37) H Alanine Aminotransferase (ALT/SGPT) 180 U/L (12-78) H Alkaline Phosphatase 201 U/L (46-116) H Troponin I 0.539 ng/mL (0.000-0.056) 0.397 ng/mL (0.000-0.056) Total Protein 6.3 G/DL (6.4-8.2) L Albumin 2.2 G/DL (3.4-5.0) L Globulin 4.1 g/dL Albumin/Globulin Ratio 0.5 (1.0-2.7) L Current Medications Medications (Trade) Dose Ordered Sig/Denisa Route PRN Reason Start Time Stop Time Status Last Admin Dose Admin Acetaminophen (Tylenol) 650 mg Q4H PRN ORAL Mild Pain/Temp > 100.5 12/19/17 14:07 01/16/18 14:06 12/20/17 11:23 Albuterol/ Ipratropium (Albuterol/ Ipratropium) 3 ml Q4H PRN HHN Shortness of Breath 12/19/17 14:07 12/22/17 14:06 Aspirin (ASA) 81 mg DAILY ORAL 12/20/17 09:00 01/15/18 08:59 12/20/17 09:04 Atorvastatin Calcium (Lipitor) 80 mg BEDTIME ORAL 12/19/17 21:00 01/14/18 20:59 12/19/17 20:27 Enalaprilat (Vasotec) 2.5 mg Q6H PRN IV sbp more than 160mmHg 12/19/17 14:08 01/14/18 14:07 12/19/17 20:28 EZETIMIBE (Zetia) 10 mg BEDTIME ORAL 12/19/17 21:00 01/15/18 20:59 12/19/17 20:26 Famotidine (Pepcid I.v.) 20 mg Q12HR IVP 12/19/17 21:00 01/16/18 08:59 12/20/17 09:04 Finasteride (Proscar) 5 mg DAILY ORAL 12/20/17 09:00 01/16/18 08:59 12/20/17 09:04 Gabapentin (Neurontin) 300 mg THREE TIMES A DAY ORAL 12/19/17 18:00 01/15/18 12:59 12/20/17 17:08 Heparin Sodium/ Dextrose 500 ml @ 20.9 mls/hr ADJUST PER PROTOCOL IV 12/20/17 02:00 01/18/18 18:39 12/20/17 02:42 Levofloxacin 150 ml @ 100 mls/hr Q24H IVPB 12/19/17 15:00 12/26/17 14:59 12/20/17 15:33 Methadone HCl (Methadone HCl) 2.5 mg Q6HR ORAL 12/19/17 18:00 12/26/17 17:59 12/20/17 17:08 Morphine Sulfate (Morphine Sulfate) 2 mg Q4H PRN IVP severe Pain (Pain Scale 7-10) 12/19/17 14:09 12/22/17 14:08 Nitroglycerin (Ntg) 0.4 mg Q5M PRN SL Prn Chest Pain 12/19/17 14:09 01/14/18 14:08 Ondansetron HCl (Zofran) 4 mg Q6H PRN IVP Nausea & Vomiting 12/19/17 14:11 01/14/18 14:10 Polyethylene Glycol (Miralax) 17 gm DAILYPRN PRN ORAL Constipation 12/19/17 14:11 01/14/18 14:10 Quetiapine Fumarate (SEROquel) 12.5 mg Q4H PRN ORAL anxiety 12/20/17 13:45 01/19/18 13:44 Sodium Chloride 1,000 ml @ 75 mls/hr [id number] IV 12/19/17 14:07 01/15/18 14:06 12/19/17 15:50 Tamsulosin HCl (Flomax) 0.4 mg BEDTIME ORAL 12/19/17 21:00 01/15/18 20:59 12/19/17 20:27 Temazepam (Restoril) 15 mg HSPRN PRN ORAL Insomnia 12/19/17 14:12 12/22/17 14:11 Prieto Millan MD Dec 20, 2017 17:52
--- NOTE | 2017-12-20 18:19 | Internal Med Progress Note ---
Subjective Date of Service: Dec 20, 2017 Physician Name Blair,Mehdi Attending Physician Lito Ron MD Current Medications Medications (Trade) Dose Ordered Sig/Denisa Route PRN Reason Start Time Stop Time Status Last Admin Dose Admin Acetaminophen (Tylenol) 650 mg Q4H PRN ORAL Mild Pain/Temp > 100.5 12/19/17 14:07 01/16/18 14:06 12/20/17 11:23 Albuterol/ Ipratropium (Albuterol/ Ipratropium) 3 ml Q4H PRN HHN Shortness of Breath 12/19/17 14:07 12/22/17 14:06 Aspirin (ASA) 81 mg DAILY ORAL 12/20/17 09:00 01/15/18 08:59 12/20/17 09:04 Atorvastatin Calcium (Lipitor) 80 mg BEDTIME ORAL 12/19/17 21:00 01/14/18 20:59 12/19/17 20:27 Enalaprilat (Vasotec) 2.5 mg Q6H PRN IV sbp more than 160mmHg 12/19/17 14:08 01/14/18 14:07 12/19/17 20:28 EZETIMIBE (Zetia) 10 mg BEDTIME ORAL 12/19/17 21:00 01/15/18 20:59 12/19/17 20:26 Famotidine (Pepcid I.v.) 20 mg Q12HR IVP 12/19/17 21:00 01/16/18 08:59 12/20/17 09:04 Finasteride (Proscar) 5 mg DAILY ORAL 12/20/17 09:00 01/16/18 08:59 12/20/17 09:04 Gabapentin (Neurontin) 300 mg THREE TIMES A DAY ORAL 12/19/17 18:00 01/15/18 12:59 12/20/17 17:08 Heparin Sodium/ Dextrose 500 ml @ 20.9 mls/hr ADJUST PER PROTOCOL IV 12/20/17 02:00 01/18/18 18:39 12/20/17 02:42 Levofloxacin 150 ml @ 100 mls/hr Q24H IVPB 12/19/17 15:00 12/26/17 14:59 12/20/17 15:33 Methadone HCl (Methadone HCl) 2.5 mg Q6HR ORAL 12/19/17 18:00 12/26/17 17:59 12/20/17 17:08 Morphine Sulfate (Morphine Sulfate) 2 mg Q4H PRN IVP severe Pain (Pain Scale 7-10) 12/19/17 14:09 12/22/17 14:08 Nitroglycerin (Ntg) 0.4 mg Q5M PRN SL Prn Chest Pain 12/19/17 14:09 01/14/18 14:08 Ondansetron HCl (Zofran) 4 mg Q6H PRN IVP Nausea & Vomiting 12/19/17 14:11 01/14/18 14:10 Polyethylene Glycol (Miralax) 17 gm DAILYPRN PRN ORAL Constipation 12/19/17 14:11 01/14/18 14:10 Quetiapine Fumarate (SEROquel) 12.5 mg Q4H PRN ORAL anxiety 12/20/17 13:45 01/19/18 13:44 Sodium Chloride 1,000 ml @ 75 mls/hr [id number] IV 12/19/17 14:07 01/15/18 14:06 12/19/17 15:50 Tamsulosin HCl (Flomax) 0.4 mg BEDTIME ORAL 12/19/17 21:00 01/15/18 20:59 12/19/17 20:27 Temazepam (Restoril) 15 mg HSPRN PRN ORAL Insomnia 12/19/17 14:12 12/22/17 14:11 Allergies: Coded Allergies: No Known Allergies (Unverified , 12/15/17) ROS Limited/Unobtainable: Yes Subjective 77 YO M admitted with altered mental status. Now NSTEMI. Still bradycardic. Await transfer to [facility] for cardiac cath. Cover for Int Justin-Dr Ron Objective Last Vital Signs Date Time Temp Pulse Resp B/P (MAP) Pulse Ox O2 Delivery O2 Flow Rate FiO2 12/20/17 12:00 41 12/20/17 12:00 97.9 16 157/68 (97) 99 12/20/17 09:00 Nasal Cannula 3.0 12/20/17 08:31 32 Laboratory Tests Test 12/20/17 01:12 12/20/17 04:00 12/20/17 07:55 12/20/17 08:00 Activated Partial Thromboplast Time 55 SEC (23-33) H 89 SEC (23-33) H White Blood Count 7.3 K/UL (4.8-10.8) Red Blood Count 3.29 M/UL (4.70-6.10) L Hemoglobin 9.6 G/DL (14.2-18.0) L Hematocrit 29.2 % (42.0-52.0) L Mean Corpuscular Volume 89 FL (80-99) Mean Corpuscular Hemoglobin 29.1 PG (27.0-31.0) Mean Corpuscular Hemoglobin Concent 32.8 G/DL (32.0-36.0) Red Cell Distribution Width 12.7 % (11.6-14.8) Platelet Count 210 K/UL (150-450) Mean Platelet Volume 6.4 FL (6.5-10.1) L Neutrophils (%) (Auto) 63.5 % (45.0-75.0) Lymphocytes (%) (Auto) 25.6 % (20.0-45.0) Monocytes (%) (Auto) 8.2 % (1.0-10.0) Eosinophils (%) (Auto) 2.1 % (0.0-3.0) Basophils (%) (Auto) 0.5 % (0.0-2.0) Erythrocyte Sedimentation Rate 108 MM/HR (0-20) H Sodium Level 143 MMOL/L (136-145) Potassium Level 3.9 MMOL/L (3.5-5.1) Chloride Level 110 MMOL/L (98-107) H Carbon Dioxide Level 29 MMOL/L (21-32) Anion Gap 4 mmol/L (5-15) L Blood Urea Nitrogen 18 mg/dL (7-18) Creatinine 1.4 MG/DL (0.55-1.30) H Estimat Glomerular Filtration Rate mL/min (>60) Glucose Level 120 MG/DL (74-106) H Calcium Level 8.2 MG/DL (8.5-10.1) L Phosphorus Level 2.9 MG/DL (2.5-4.9) Magnesium Level 1.8 MG/DL (1.8-2.4) Total Bilirubin 0.5 MG/DL (0.2-1.0) Aspartate Amino Transf (AST/SGOT) 122 U/L (15-37) H Alanine Aminotransferase (ALT/SGPT) 180 U/L (12-78) H Alkaline Phosphatase 201 U/L (46-116) H Troponin I 0.539 ng/mL (0.000-0.056) 0.397 ng/mL (0.000-0.056) Total Protein 6.3 G/DL (6.4-8.2) L Albumin 2.2 G/DL (3.4-5.0) L Globulin 4.1 g/dL Albumin/Globulin Ratio 0.5 (1.0-2.7) L Intake and Output 12/19/17 12/20/17 19:00 07:00 Intake Total 2166.845 ml 178.6 ml Output Total 825 ml 2100 ml Balance 1341.845 ml -1921.4 ml Intake Oral 580 ml IV Total 1586.845 ml 178.6 ml Output Urine Total 825 ml 2100 ml # Bowel Movements 1 Objective Objective General: No acute distress, awake and alert HEENT: NCAT, sclera anicteric, PERRL, EOMI. Left facial droop. Neck: Supple, no significant jugular venous distention, Lungs: Fair inspiratory effort, no Wheeze or Rales. Heart: Regular rate and rhythm, normal S1/S2, no murmurs, distant heart sound. Abdomen: soft, nontender, nondistended. Normoactive bowel sounds. Obesity. Extremities: No Cyanosis , clubbing or edema. Neuro: A&O x 3, Able to move right side extremities, left side hemiparesis. Psych: Normal mood and affect Assessment/Plan Problem List: (1) NSTEMI (non-ST elevated myocardial infarction) Assessment & Plan: On heparin drip. Will require cardiac cath. Await transfer to [facility]-see cardiology note. (2) UTI (urinary tract infection) Assessment & Plan: [place]. Continue cefepime per ID (3) Sepsis Assessment & Plan: [place] - continue cefepime per ID (4) Renal calculus (5) Hypertension (6) Diabetes mellitus type II, uncontrolled (7) BPH (benign prostatic hyperplasia) (8) Deep venous embolism and thrombosis of left lower extremity Assessment & Plan: on heparin drip (9) Cerebral vascular disease (10) Hypercholesteremia (11) Bradycardia Assessment & Plan: await cardiology consult. Status: progressing Mehdi Blair MD Dec 20, 2017 18:19
--- NOTE | 2017-12-20 19:31 | Progress Note ---
DATE: 12/20/2017 SUBJECTIVE: The patient is in no acute distress. She has been more alert and complained of low-grade pain. Only is able to answer simple questions. Continues to have waxing and waning of consciousness. She is cooperative agitation. MENTAL STATUS EXAMINATION: The patient is alert and oriented times self and place. Mood is dysphoric. Affect is constricted, congruent with mood. Thought process is concrete. Thought content, no suicidal or homicidal ideations. Cognition is impaired. Memory is impaired. ASSESSMENT: Encephalopathy due to toxin, myocardial infarction. PLAN: 1. The patient will be continued on temazepam for insomnia. 2. Seroquel p.r.n. 3. We will continue to follow and readjust the medications. 4. The patient is awaiting transfer. Aaron Arreguin M.D. DR: Nadine JOB#: [id number] CC:
[2017-12-20 20:00] VITALS: BP 153/74
[2017-12-20] MEDS: Tamsulosin 0.4mg cap ORAL SCH (20:46)
[2017-12-20] MEDS: Atorvastatin 80mg tab ORAL SCH (20:46)
--- NOTE | 2017-12-20 22:02 | Consultation ---
DATE OF CONSULTATION: 12/20/2017 CARDIAC ELECTROPHYSIOLOGY CONSULTATION: CONSULTING PHYSICIAN: Romie Powell M.D. REFERRING PHYSICIAN: Lito Ron M.D. REASON FOR CONSULTATION: Bradycardia. HISTORY OF PRESENT ILLNESS: The patient is a 77-year-old gentleman who was admitted to the hospital for hallucinating and being sleepy. The patient subsequently developed fever and was transferred to [place]. The patient did not have any chest pain or pressure or tightness. The patient was evaluated by Dr. Alfonso as the patient has abnormal cardiac enzymes. The patient had recent hospitalization at [facility] for nephrolithiasis, underwent stent placement. The patient has remained bradycardic with heart rate dropping to 30s and cardiac electrophysiology consultation was obtained for further evaluation and management. REVIEW OF SYSTEMS: Negative other than what is mentioned in history of present illness. PAST MEDICAL HISTORY: Includes: 1. Hypertension. 2. History of DVT and PE. 3. History of CVA. 4. Prior stent a few years ago at [facility]. 5. History of benign prostatic hypertrophy. 6. Dysphagia, status post intracranial hemorrhage, status post G-tube. 7. Hyperlipidemia. 8. History of brain injury, status post craniotomy. FAMILY HISTORY: Noncontributory. SOCIAL HISTORY: Lives at [facility]. Does not smoke or drink alcohol. PHYSICAL EXAMINATION: VITAL SIGNS: Show blood pressure 157/68, pulse is 37, respirations 18, and temperature 97.9. HEAD AND NECK: Shows no JVD. LUNGS: Clear. CARDIOVASCULAR: Regular S1 and S2 with no gallop or murmur. Bradycardic. ABDOMEN: Soft. Status post G-tube. EXTREMITIES: 2+ pitting edema. LABORATORY DATA: His laboratories show white count hematocrit 29.2, and platelet count 210. Labs show sodium 143, potassium 3.9, BUN of 18, and creatinine 1.4. Troponin 0.67, 0.53, and 0.39. Initial troponin was 1.87 and the highest troponin level was 6.16. ASSESSMENT AND PLAN: 1. Bradycardia. This is likely due to the effect of the beta-grey that he was on that was put on after a myocardial infarction. Metoprolol was discontinued. We will watch him on telemetry. Pacemaker is not indicated at this time as he is off of any other sinus or AV telly affecting agent. The patient's echocardiogram showed ejection fraction of 55%. 2. Non-ST elevation myocardial infarction and elevated cardiac enzymes. The patient will be transferred to [facility] for cardiac catheterization. 3. History of DVT and pulmonary embolism. Xarelto is on hold. The patient is on heparin. 4. History of coronary artery disease with prior stent placement in 2004. 5. Hemorrhagic cerebrovascular accident left-sided paralysis. Thank you very much, Dr. Ron, for allowing me to participate in the care of this patient. Please do not hesitate to contact me for any questions regarding my evaluation. The case was discussed with Dr. Chalo Alfonso as well. Romie Powell M.D. DR: BECKY JOB#: [id number] CC:
[2017-12-21] VITALS (7 sets, daily range): BP systolic 140–183; BP diastolic 74–90
[2017-12-21] MEDS: Enalaprilat 2.5mg/2ml Inj IV PRN (01:00)
[2017-12-21] MEDS: Heparin 25,000u/D5W 500ml 500 ML IV SCH (02:30)
[2017-12-21 04:27] LABS: ALANINE AMINOTRANSFERASE 119 U/L (12-78); ALBUMIN 2.2 G/DL (3.4-5.0); ALBUMIN/GLOBULIN RATIO 0.6 (1.0-2.7); ALKALINE PHOSPHATASE 173 U/L (46-116); ANION GAP 5 mmol/L (5-15); ASPARTATE AMINO TRANSFERASE 54 U/L (15-37); BILIRUBIN,TOTAL 0.4 MG/DL (0.2-1.0); BLOOD UREA NITROGEN 17 mg/dL (7-18); CALCIUM 8.5 MG/DL (8.5-10.1); CARBON DIOXIDE 30 MMOL/L (21-32); CHLORIDE 107 MMOL/L (98-107); CREATININE 1.3 MG/DL (0.55-1.30); PHOSPHORUS 3.6 MG/DL (2.5-4.9); POTASSIUM 3.9 MMOL/L (3.5-5.1); SODIUM 142 MMOL/L (136-145)
[2017-12-21 04:43] LABS: BASOPHILS % (AUTO) 0.6 % (0.0-2.0); EOSINOPHILS % (AUTO) 3.5 % (0.0-3.0); HEMOGLOBIN 10.1 G/DL (14.2-18.0); LYMPHOCYTES % (AUTO) 30.4 % (20.0-45.0); MEAN CORPUSCULAR VOLUME 88 FL (80-99); MONOCYTES % (AUTO) 8.2 % (1.0-10.0); NEUTROPHILS % (AUTO) 57.3 % (45.0-75.0); PLATELET COUNT 198 K/UL (150-450); RED BLOOD COUNT 3.42 M/UL (4.70-6.10); RED CELL DISTRIBUTION WIDTH 12.9 % (11.6-14.8); WHITE BLOOD COUNT 6.7 K/UL (4.8-10.8)
--- NOTE | 2017-12-21 07:32 | Urology Progress Note ---
Assessment/Plan Assessment/Plan 1. History of nephrolithiasis. 2. History of colic and hydro with right indwelling ureteral stent. 3. Benign prostatic hypertrophy history. 4. Hematuria. 5. Urinary tract infection. 6. Proteinuria. 7. Hydrocele. 8. Urinary frequency history. 9. Probable neurogenic bladder. 10. Acute kidney injury, which is better. 11. Sepsis. abx as ordered cont flomax and proscar tx of stones later f/u on repeat blood cx Subjective Allergies: Coded Allergies: No Known Allergies (Unverified , 12/15/17) Subjective lethargic, voiding, condom cath Objective Last 24 Hour Vital Signs Date Time Temp Pulse Resp B/P (MAP) Pulse Ox O2 Delivery O2 Flow Rate FiO2 12/21/17 04:36 98.0 49 16 159/77 (104) 97 12/21/17 04:00 37 12/21/17 01:00 180/89 12/21/17 01:00 150/74 (99) 12/21/17 00:00 42 12/21/17 00:00 97.0 40 16 183/90 (121) 92 12/20/17 21:00 Nasal Cannula 3.0 12/20/17 20:00 98.3 40 16 153/74 (100) 92 12/20/17 19:43 37 12/20/17 19:00 59 20 Nasal Cannula 3.0 32 12/20/17 19:00 Nasal Cannula 3.0 32 12/20/17 19:00 97 Nasal Cannula 3.0 32 12/20/17 16:00 42 12/20/17 16:00 98.3 46 16 138/60 (86) 92 12/20/17 12:00 41 12/20/17 12:00 97.9 44 16 157/68 (97) 99 12/20/17 09:00 Nasal Cannula 3.0 12/20/17 09:00 37 143/69 12/20/17 08:31 98 Nasal Cannula 3.0 32 12/20/17 08:31 Nasal Cannula 3.0 32 12/20/17 08:31 65 18 Nasal Cannula 3.0 32 12/20/17 08:00 46 12/20/17 08:00 98.3 46 16 145/59 (87) 92 Intake and Output 12/20/17 12/21/17 19:00 07:00 Intake Total 480 ml 229.9 ml Output Total 1500 ml Balance 480 ml -1270.1 ml Intake Oral 480 ml IV Total 229.9 ml Output Urine Total 1500 ml # Bowel Movements 1 1 Microbiology Date/Time Source Procedure Growth Status 12/17/17 11:50 Blood Blood Culture - Preliminary NO GROWTH AFTER 72 HOURS Resulted 12/15/17 17:45 Nasal Nares MRSA Culture - Final NO METHICILLIN RESISTANT STAPH AUREUS... Complete 12/16/17 17:25 Urine,Clean Catch Urine Culture - Final NO GROWTH AFTER 48 HOURS Complete 12/15/17 17:45 Rectum VRE Culture - Final Enterococcus Faecium - Vre Complete 12/15/17 17:45 Rectum - Final NO CARBAPENEM-RESISTANT ENTEROBACTERI... Complete Current Medications Medications (Trade) Dose Ordered Sig/Denisa Route PRN Reason Start Time Stop Time Status Last Admin Dose Admin Acetaminophen (Tylenol) 650 mg Q4H PRN ORAL Mild Pain/Temp > 100.5 12/19/17 14:07 01/16/18 14:06 12/20/17 19:10 Albuterol/ Ipratropium (Albuterol/ Ipratropium) 3 ml Q4H PRN HHN Shortness of Breath 12/19/17 14:07 12/22/17 14:06 Aspirin (ASA) 81 mg DAILY ORAL 12/20/17 09:00 01/15/18 08:59 12/20/17 09:04 Atorvastatin Calcium (Lipitor) 80 mg BEDTIME ORAL 12/19/17 21:00 01/14/18 20:59 12/20/17 20:46 Enalaprilat (Vasotec) 2.5 mg Q6H PRN IV sbp more than 160mmHg 12/19/17 14:08 01/14/18 14:07 12/21/17 01:00 EZETIMIBE (Zetia) 10 mg BEDTIME ORAL 12/19/17 21:00 01/15/18 20:59 12/20/17 20:46 Famotidine (Pepcid I.v.) 20 mg Q12HR IVP 12/19/17 21:00 01/16/18 08:59 12/20/17 20:46 Finasteride (Proscar) 5 mg DAILY ORAL 12/20/17 09:00 01/16/18 08:59 12/20/17 09:04 Gabapentin (Neurontin) 300 mg THREE TIMES A DAY ORAL 12/19/17 18:00 01/15/18 12:59 12/20/17 17:08 Heparin Sodium/ Dextrose 500 ml @ 20.9 mls/hr ADJUST PER PROTOCOL IV 12/20/17 02:00 01/18/18 18:39 12/21/17 02:30 Levofloxacin 150 ml @ 100 mls/hr Q24H IVPB 12/19/17 15:00 12/26/17 14:59 12/20/17 15:33 Methadone HCl (Methadone HCl) 2.5 mg Q6HR ORAL 12/19/17 18:00 12/26/17 17:59 12/21/17 06:05 Morphine Sulfate (Morphine Sulfate) 2 mg Q4H PRN IVP severe Pain (Pain Scale 7-10) 12/19/17 14:09 12/22/17 14:08 Nitroglycerin (Ntg) 0.4 mg Q5M PRN SL Prn Chest Pain 12/19/17 14:09 01/14/18 14:08 Ondansetron HCl (Zofran) 4 mg Q6H PRN IVP Nausea & Vomiting 12/19/17 14:11 01/14/18 14:10 Polyethylene Glycol (Miralax) 17 gm DAILYPRN PRN ORAL Constipation 12/19/17 14:11 01/14/18 14:10 Quetiapine Fumarate (SEROquel) 12.5 mg Q4H PRN ORAL anxiety 12/20/17 13:45 01/19/18 13:44 Sodium Chloride 1,000 ml @ 75 mls/hr [id number] IV 12/19/17 14:07 01/15/18 14:06 12/21/17 06:06 Tamsulosin HCl (Flomax) 0.4 mg BEDTIME ORAL 12/19/17 21:00 01/15/18 20:59 12/20/17 20:46 Temazepam (Restoril) 15 mg HSPRN PRN ORAL Insomnia 12/19/17 14:12 12/22/17 14:11 Laboratory Tests 12/20/17 07:55: Troponin I 0.397H 12/20/17 08:00: Activated Partial Thromboplast Time 89H 12/21/17 04:04: Activated Partial Thromboplast Time 75H, White Blood Count 6.7, Red Blood Count 3.42L, Hemoglobin 10.1L, Hematocrit 30.0L, Mean Corpuscular Volume 88, Mean Corpuscular Hemoglobin 29.5, Mean Corpuscular Hemoglobin Concent 33.6, Red Cell Distribution Width 12.9, Platelet Count 198, Mean Platelet Volume 7.0, Neutrophils (%) (Auto) 57.3, Lymphocytes (%) (Auto) 30.4, Monocytes (%) (Auto) 8.2, Eosinophils (%) (Auto) 3.5H, Basophils (%) (Auto) 0.6, Sodium Level 142, Potassium Level 3.9, Chloride Level 107, Carbon Dioxide Level 30, Anion Gap 5, Blood Urea Nitrogen 17, Creatinine 1.3, Estimat Glomerular Filtration Rate , Glucose Level 123H, Calcium Level 8.5, Phosphorus Level 3.6, Magnesium Level 1.6L, Total Bilirubin 0.4, Aspartate Amino Transf (AST/SGOT) 54H, Alanine Aminotransferase (ALT/SGPT) 119H, Alkaline Phosphatase 173H, Total Protein 6.0L , Albumin 2.2L, Globulin 3.8, Albumin/Globulin Ratio 0.6L Height (Feet): 5 Height (Inches): 7.00 Weight (Pounds): 208 Objective abdomen soft, urine grossly yellow/ciara KUB noted Kevin Thompson MD Dec 21, 2017 07:32
[2017-12-21] MEDS: Aspirin Baby 81mg ORAL SCH (09:50)
--- NOTE | 2017-12-21 13:36 | Cardiac Electrophysiology PN ---
Assessment/Plan Assessment/Plan 1. Bradycardia. Metoprolol was discontinued. Still gama down to 39. We will watch him on telemetry. Keep off of any other sinus or AV telly affecting agent. Echocardiogram showed ejection fraction of 55%. 2. Non-ST elevation myocardial infarction and elevated cardiac enzymes. Still awaiting transfer to [facility] for cardiac catheterization. If agreeable can transfer to [facility] where he had his original stent placed . 3. History of DVT and pulmonary embolism. Xarelto is on hold. The patient is on heparin. 4. History of coronary artery disease with prior stent placement in 2004 at [facility]. 5. 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 DW , RN and pillowcase folder Subjective Subjective Still awaiting transfer to [facility] for cardiac cath. at bedside. No CP or SOB. Still gama as low as 39 while awake at 10.15 am today Objective Last 24 Hour Vital Signs Date Time Temp Pulse Resp B/P (MAP) Pulse Ox O2 Delivery O2 Flow Rate FiO2 12/21/17 12:00 47 12/21/17 12:00 97.6 49 18 149/74 (99) 97 12/21/17 09:00 Nasal Cannula 3.0 12/21/17 08:00 51 12/21/17 08:00 98.3 49 18 158/84 (108) 96 12/21/17 06:55 62 20 Nasal Cannula 3.0 32 12/21/17 06:55 Nasal Cannula 3.0 32 12/21/17 06:55 98 Nasal Cannula 3.0 32 12/21/17 04:36 98.0 49 16 159/77 (104) 97 12/21/17 04:00 37 12/21/17 01:00 180/89 12/21/17 01:00 150/74 (99) 12/21/17 00:00 42 12/21/17 00:00 97.0 40 16 183/90 (121) 92 12/20/17 21:00 Nasal Cannula 3.0 12/20/17 20:00 98.3 40 16 153/74 (100) 92 12/20/17 19:43 37 12/20/17 19:00 59 20 Nasal Cannula 3.0 32 12/20/17 19:00 Nasal Cannula 3.0 32 12/20/17 19:00 97 Nasal Cannula 3.0 32 12/20/17 16:00 42 12/20/17 16:00 98.3 46 16 138/60 (86) 92 Intake and Output 12/20/17 12/21/17 19:00 07:00 Intake Total 480 ml 229.9 ml Output Total 1500 ml Balance 480 ml -1270.1 ml Intake Oral 480 ml IV Total 229.9 ml Output Urine Total 1500 ml # Bowel Movements 1 1 Laboratory Tests Test 12/21/17 04:04 White Blood Count 6.7 K/UL (4.8-10.8) Red Blood Count 3.42 M/UL (4.70-6.10) L Hemoglobin 10.1 G/DL (14.2-18.0) L Hematocrit 30.0 % (42.0-52.0) L Mean Corpuscular Volume 88 FL (80-99) Mean Corpuscular Hemoglobin 29.5 PG (27.0-31.0) Mean Corpuscular Hemoglobin Concent 33.6 G/DL (32.0-36.0) Red Cell Distribution Width 12.9 % (11.6-14.8) Platelet Count 198 K/UL (150-450) Mean Platelet Volume 7.0 FL (6.5-10.1) Neutrophils (%) (Auto) 57.3 % (45.0-75.0) Lymphocytes (%) (Auto) 30.4 % (20.0-45.0) Monocytes (%) (Auto) 8.2 % (1.0-10.0) Eosinophils (%) (Auto) 3.5 % (0.0-3.0) H Basophils (%) (Auto) 0.6 % (0.0-2.0) Activated Partial Thromboplast Time 75 SEC (23-33) H Sodium Level 142 MMOL/L (136-145) Potassium Level 3.9 MMOL/L (3.5-5.1) Chloride Level 107 MMOL/L (98-107) Carbon Dioxide Level 30 MMOL/L (21-32) Anion Gap 5 mmol/L (5-15) Blood Urea Nitrogen 17 mg/dL (7-18) Creatinine 1.3 MG/DL (0.55-1.30) Estimat Glomerular Filtration Rate mL/min (>60) Glucose Level 123 MG/DL (74-106) H Calcium Level 8.5 MG/DL (8.5-10.1) Phosphorus Level 3.6 MG/DL (2.5-4.9) Magnesium Level 1.6 MG/DL (1.8-2.4) L Total Bilirubin 0.4 MG/DL (0.2-1.0) Aspartate Amino Transf (AST/SGOT) 54 U/L (15-37) H Alanine Aminotransferase (ALT/SGPT) 119 U/L (12-78) H Alkaline Phosphatase 173 U/L (46-116) H Total Protein 6.0 G/DL (6.4-8.2) L Albumin 2.2 G/DL (3.4-5.0) L Globulin 3.8 g/dL Albumin/Globulin Ratio 0.6 (1.0-2.7) L Objective HEAD AND NECK: No JVD. LUNGS: Clear. CARDIOVASCULAR: Regular S1 and S2 with no gallop or murmur. Bradycardic. ABDOMEN: Soft. Nontender EXTREMITIES: 1+ pitting edema. Romie Powell MD Dec 21, 2017 13:36
--- NOTE | 2017-12-21 15:28 | Infectious Diseases Prog Note ---
Assessment/Plan Assessment/Plan ASSESSMENT: The patient is a 77-year-old male with: Sepsis UTI bacteremia US : Right nephroureteral stent and right nephrolithiasis, also previously demonstrated -ucx PsA (finch S); repeat ucx NTD -12/15 Bcx 02/10 PSA -CT abd/p: Multiple nonobstructive stones within both kidneys as described above. Right ureteral stent in good position. No hydronephrosis. Perinephric stranding nonspecific. Moderate fecal retention. Prostate hypertrophy.Gallstones versus sludge. Transaminitis ( m/l due to sepsis) Leukocytosis, SP Fever, Sp Non-STEMI. Anemia. Renal stone s/p recent stent Hypertension CAD. Diabetes. BPH. History of DVT. History of CVA. VRE colonized PLAN: Cont IV Levaquin d# 3/ 7 11 SP IV cefepime day # 4 Monitor CBC and BMP. Monitor cultures (blood ) Uro fup hep panel :P US of Abd transfer to [facility] for Angio Subjective Allergies: Coded Allergies: No Known Allergies (Unverified , 12/15/17) Subjective await transfer to [facility] for Angio Objective Vital Signs Last 24 Hour Vital Signs Date Time Temp Pulse Resp B/P (MAP) Pulse Ox O2 Delivery O2 Flow Rate FiO2 12/21/17 12:00 47 12/21/17 12:00 97.6 49 18 149/74 (99) 97 12/21/17 09:00 Nasal Cannula 3.0 12/21/17 08:00 51 12/21/17 08:00 98.3 49 18 158/84 (108) 96 12/21/17 06:55 62 20 Nasal Cannula 3.0 32 12/21/17 06:55 Nasal Cannula 3.0 32 12/21/17 06:55 98 Nasal Cannula 3.0 32 12/21/17 04:36 98.0 49 16 159/77 (104) 97 12/21/17 04:00 37 12/21/17 01:00 180/89 12/21/17 01:00 150/74 (99) 12/21/17 00:00 42 12/21/17 00:00 97.0 40 16 183/90 (121) 92 12/20/17 21:00 Nasal Cannula 3.0 12/20/17 20:00 98.3 40 16 153/74 (100) 92 12/20/17 19:43 37 12/20/17 19:00 59 20 Nasal Cannula 3.0 32 12/20/17 19:00 Nasal Cannula 3.0 32 12/20/17 19:00 97 Nasal Cannula 3.0 32 12/20/17 16:00 42 12/20/17 16:00 98.3 46 16 138/60 (86) 92 Height (Feet): 5 Height (Inches): 7.00 Weight (Pounds): 208 HEENT: mucous membranes moist Respiratory/Chest: normal breath sounds Cardiovascular: no gallop/murmur Abdomen: no organomegaly Laboratory Tests Test 12/21/17 04:04 White Blood Count 6.7 K/UL (4.8-10.8) Red Blood Count 3.42 M/UL (4.70-6.10) L Hemoglobin 10.1 G/DL (14.2-18.0) L Hematocrit 30.0 % (42.0-52.0) L Mean Corpuscular Volume 88 FL (80-99) Mean Corpuscular Hemoglobin 29.5 PG (27.0-31.0) Mean Corpuscular Hemoglobin Concent 33.6 G/DL (32.0-36.0) Red Cell Distribution Width 12.9 % (11.6-14.8) Platelet Count 198 K/UL (150-450) Mean Platelet Volume 7.0 FL (6.5-10.1) Neutrophils (%) (Auto) 57.3 % (45.0-75.0) Lymphocytes (%) (Auto) 30.4 % (20.0-45.0) Monocytes (%) (Auto) 8.2 % (1.0-10.0) Eosinophils (%) (Auto) 3.5 % (0.0-3.0) H Basophils (%) (Auto) 0.6 % (0.0-2.0) Activated Partial Thromboplast Time 75 SEC (23-33) H Sodium Level 142 MMOL/L (136-145) Potassium Level 3.9 MMOL/L (3.5-5.1) Chloride Level 107 MMOL/L (98-107) Carbon Dioxide Level 30 MMOL/L (21-32) Anion Gap 5 mmol/L (5-15) Blood Urea Nitrogen 17 mg/dL (7-18) Creatinine 1.3 MG/DL (0.55-1.30) Estimat Glomerular Filtration Rate mL/min (>60) Glucose Level 123 MG/DL (74-106) H Calcium Level 8.5 MG/DL (8.5-10.1) Phosphorus Level 3.6 MG/DL (2.5-4.9) Magnesium Level 1.6 MG/DL (1.8-2.4) L Total Bilirubin 0.4 MG/DL (0.2-1.0) Aspartate Amino Transf (AST/SGOT) 54 U/L (15-37) H Alanine Aminotransferase (ALT/SGPT) 119 U/L (12-78) H Alkaline Phosphatase 173 U/L (46-116) H Total Protein 6.0 G/DL (6.4-8.2) L Albumin 2.2 G/DL (3.4-5.0) L Globulin 3.8 g/dL Albumin/Globulin Ratio 0.6 (1.0-2.7) L Current Medications Medications (Trade) Dose Ordered Sig/Denisa Route PRN Reason Start Time Stop Time Status Last Admin Dose Admin Acetaminophen (Tylenol) 650 mg Q4H PRN ORAL Mild Pain/Temp > 100.5 12/19/17 14:07 01/16/18 14:06 12/20/17 19:10 Albuterol/ Ipratropium (Albuterol/ Ipratropium) 3 ml Q4H PRN HHN Shortness of Breath 12/19/17 14:07 12/22/17 14:06 Aspirin (ASA) 81 mg DAILY ORAL 12/20/17 09:00 01/15/18 08:59 12/21/17 09:50 Atorvastatin Calcium (Lipitor) 80 mg BEDTIME ORAL 12/19/17 21:00 01/14/18 20:59 12/20/17 20:46 Enalaprilat (Vasotec) 2.5 mg Q6H PRN IV sbp more than 160mmHg 12/19/17 14:08 01/14/18 14:07 12/21/17 01:00 EZETIMIBE (Zetia) 10 mg BEDTIME ORAL 12/19/17 21:00 01/15/18 20:59 12/20/17 20:46 Famotidine (Pepcid I.v.) 20 mg Q12HR IVP 12/19/17 21:00 01/16/18 08:59 12/21/17 09:51 Finasteride (Proscar) 5 mg DAILY ORAL 12/20/17 09:00 01/16/18 08:59 12/21/17 09:50 Gabapentin (Neurontin) 600 mg THREE TIMES A DAY ORAL 12/21/17 13:00 01/20/18 12:59 12/21/17 13:20 Heparin Sodium/ Dextrose 500 ml @ 20.9 mls/hr ADJUST PER PROTOCOL IV 12/20/17 02:00 01/18/18 18:39 12/21/17 02:30 Levofloxacin 150 ml @ 100 mls/hr Q24H IVPB 12/19/17 15:00 12/26/17 14:59 12/21/17 15:13 Morphine Sulfate (Morphine Sulfate) 2 mg Q4H PRN IVP severe Pain (Pain Scale 7-10) 12/19/17 14:09 12/22/17 14:08 Nitroglycerin (Ntg) 0.4 mg Q5M PRN SL Prn Chest Pain 12/19/17 14:09 01/14/18 14:08 Ondansetron HCl (Zofran) 4 mg Q6H PRN IVP Nausea & Vomiting 12/19/17 14:11 01/14/18 14:10 12/21/17 07:40 Polyethylene Glycol (Miralax) 17 gm DAILYPRN PRN ORAL Constipation 12/19/17 14:11 01/14/18 14:10 Quetiapine Fumarate (SEROquel) 12.5 mg Q4H PRN ORAL anxiety 12/20/17 13:45 01/19/18 13:44 Sodium Chloride 1,000 ml @ 75 mls/hr [id number] IV 12/19/17 14:07 01/15/18 14:06 12/21/17 06:06 Tamsulosin HCl (Flomax) 0.4 mg BEDTIME ORAL 12/19/17 21:00 01/15/18 20:59 12/20/17 20:46 Temazepam (Restoril) 15 mg HSPRN PRN ORAL Insomnia 12/19/17 14:12 12/22/17 14:11 Prieto Millan MD Dec 21, 2017 15:28
--- NOTE | 2017-12-21 17:33 | Diagnostic Imaging Report ---
APPROVED REPORT CPT Code: 18930 Present Symptoms Lower Extremity Pain: Bilateral BILATERAL: Imaging reveals a patent deep venous system bilaterally. There is no evidence of thrombus within the femoral, popliteal or tibial segments. The greater saphenous veins are also within normal limits. Doppler indicates normal spontaneous flow within these segments.
--- NOTE | 2017-12-21 18:45 | Internal Med Progress Note ---
Subjective Date of Service: Dec 21, 2017 Physician Name Blair,Mehdi Attending Physician Lito Ron MD Current Medications Medications (Trade) Dose Ordered Sig/Denisa Route PRN Reason Start Time Stop Time Status Last Admin Dose Admin Acetaminophen (Tylenol) 650 mg Q4H PRN ORAL Mild Pain/Temp > 100.5 12/19/17 14:07 01/16/18 14:06 12/20/17 19:10 Albuterol/ Ipratropium (Albuterol/ Ipratropium) 3 ml Q4H PRN HHN Shortness of Breath 12/19/17 14:07 12/22/17 14:06 Aspirin (ASA) 81 mg DAILY ORAL 12/20/17 09:00 01/15/18 08:59 12/21/17 09:50 Atorvastatin Calcium (Lipitor) 80 mg BEDTIME ORAL 12/19/17 21:00 01/14/18 20:59 12/20/17 20:46 Enalaprilat (Vasotec) 2.5 mg Q6H PRN IV sbp more than 160mmHg 12/19/17 14:08 01/14/18 14:07 12/21/17 01:00 EZETIMIBE (Zetia) 10 mg BEDTIME ORAL 12/19/17 21:00 01/15/18 20:59 12/20/17 20:46 Famotidine (Pepcid) 20 mg Q12HR ORAL 12/21/17 21:00 01/20/18 20:59 Finasteride (Proscar) 5 mg DAILY ORAL 12/20/17 09:00 01/16/18 08:59 12/21/17 09:50 Gabapentin (Neurontin) 600 mg THREE TIMES A DAY ORAL 12/21/17 13:00 01/20/18 12:59 12/21/17 18:07 Heparin Sodium/ Dextrose 500 ml @ 20.9 mls/hr ADJUST PER PROTOCOL IV 12/20/17 02:00 01/18/18 18:39 12/21/17 02:30 Levofloxacin 150 ml @ 100 mls/hr Q24H IVPB 12/19/17 15:00 12/26/17 14:59 12/21/17 15:13 Morphine Sulfate (Morphine Sulfate) 2 mg Q4H PRN IVP severe Pain (Pain Scale 7-10) 12/19/17 14:09 12/22/17 14:08 Nitroglycerin (Ntg) 0.4 mg Q5M PRN SL Prn Chest Pain 12/19/17 14:09 01/14/18 14:08 Ondansetron HCl (Zofran) 4 mg Q6H PRN IVP Nausea & Vomiting 12/19/17 14:11 01/14/18 14:10 12/21/17 07:40 Polyethylene Glycol (Miralax) 17 gm DAILYPRN PRN ORAL Constipation 12/19/17 14:11 01/14/18 14:10 Quetiapine Fumarate (SEROquel) 12.5 mg Q4H PRN ORAL anxiety 12/20/17 13:45 01/19/18 13:44 Sodium Chloride 1,000 ml @ 75 mls/hr [id number] IV 12/19/17 14:07 01/15/18 14:06 12/21/17 06:06 Tamsulosin HCl (Flomax) 0.4 mg BEDTIME ORAL 12/19/17 21:00 01/15/18 20:59 12/20/17 20:46 Temazepam (Restoril) 15 mg HSPRN PRN ORAL Insomnia 12/19/17 14:12 12/22/17 14:11 Allergies: Coded Allergies: No Known Allergies (Unverified , 12/15/17) ROS Limited/Unobtainable: No Constitutional: Reports: no symptoms HEENT: Reports: no symptoms Respiratory: Reports: shortness of breath Gastrointestinal/Abdominal: Reports: no symptoms Genitourinary: Reports: no symptoms Neurologic/Psychiatric: Reports: no symptoms Subjective 77 YO M admitted with altered mental status. Now NSTEMI. Still bradycardic. Await transfer to [facility] for cardiac cath. Cover for Int Justin-Dr Ron Objective Last Vital Signs Date Time Temp Pulse Resp B/P (MAP) Pulse Ox O2 Delivery O2 Flow Rate FiO2 12/21/17 16:00 41 12/21/17 16:00 98.2 18 140/80 (100) 99 12/21/17 09:00 Nasal Cannula 3.0 12/21/17 06:55 32 Laboratory Tests Test 12/21/17 04:04 White Blood Count 6.7 K/UL (4.8-10.8) Red Blood Count 3.42 M/UL (4.70-6.10) L Hemoglobin 10.1 G/DL (14.2-18.0) L Hematocrit 30.0 % (42.0-52.0) L Mean Corpuscular Volume 88 FL (80-99) Mean Corpuscular Hemoglobin 29.5 PG (27.0-31.0) Mean Corpuscular Hemoglobin Concent 33.6 G/DL (32.0-36.0) Red Cell Distribution Width 12.9 % (11.6-14.8) Platelet Count 198 K/UL (150-450) Mean Platelet Volume 7.0 FL (6.5-10.1) Neutrophils (%) (Auto) 57.3 % (45.0-75.0) Lymphocytes (%) (Auto) 30.4 % (20.0-45.0) Monocytes (%) (Auto) 8.2 % (1.0-10.0) Eosinophils (%) (Auto) 3.5 % (0.0-3.0) H Basophils (%) (Auto) 0.6 % (0.0-2.0) Activated Partial Thromboplast Time 75 SEC (23-33) H Sodium Level 142 MMOL/L (136-145) Potassium Level 3.9 MMOL/L (3.5-5.1) Chloride Level 107 MMOL/L (98-107) Carbon Dioxide Level 30 MMOL/L (21-32) Anion Gap 5 mmol/L (5-15) Blood Urea Nitrogen 17 mg/dL (7-18) Creatinine 1.3 MG/DL (0.55-1.30) Estimat Glomerular Filtration Rate mL/min (>60) Glucose Level 123 MG/DL (74-106) H Calcium Level 8.5 MG/DL (8.5-10.1) Phosphorus Level 3.6 MG/DL (2.5-4.9) Magnesium Level 1.6 MG/DL (1.8-2.4) L Total Bilirubin 0.4 MG/DL (0.2-1.0) Aspartate Amino Transf (AST/SGOT) 54 U/L (15-37) H Alanine Aminotransferase (ALT/SGPT) 119 U/L (12-78) H Alkaline Phosphatase 173 U/L (46-116) H Total Protein 6.0 G/DL (6.4-8.2) L Albumin 2.2 G/DL (3.4-5.0) L Globulin 3.8 g/dL Albumin/Globulin Ratio 0.6 (1.0-2.7) L Intake and Output 12/20/17 12/21/17 18:59 06:59 Intake Total 480 ml 229.9 ml Output Total 1500 ml Balance 480 ml -1270.1 ml Intake Oral 480 ml IV Total 229.9 ml Output Urine Total 1500 ml # Bowel Movements 1 1 Objective Objective General: No acute distress, awake and alert HEENT: NCAT, sclera anicteric, PERRL, EOMI. Left facial droop. Neck: Supple, no significant jugular venous distention, Lungs: Fair inspiratory effort, no Wheeze or Rales. Heart: Regular rate and rhythm, normal S1/S2, no murmurs, distant heart sound. Abdomen: soft, nontender, nondistended. Normoactive bowel sounds. Obesity. Extremities: No Cyanosis , clubbing or edema. Neuro: A&O x 3, Able to move right side extremities, left side hemiparesis. Psych: Normal mood and affect Assessment/Plan Problem List: (1) NSTEMI (non-ST elevated myocardial infarction) Assessment & Plan: On heparin drip. Will require cardiac cath. Await transfer to [facility]-see cardiology note. (2) UTI (urinary tract infection) Assessment & Plan: [place]amonas. Continue levaquin per ID (3) Sepsis Assessment & Plan: Pseudamonas - continue levaquin per ID (4) Renal calculus (5) Hypertension (6) Diabetes mellitus type II, uncontrolled (7) BPH (benign prostatic hyperplasia) (8) Deep venous embolism and thrombosis of left lower extremity Assessment & Plan: on heparin drip (9) Cerebral vascular disease (10) Hypercholesteremia (11) Bradycardia Assessment & Plan: await EP cardiology consult. Status: not improved Assessment/Plan Await transfer to [facility] for cardiac cath Mehdi Blair MD Dec 21, 2017 18:45
--- NOTE | 2017-12-21 19:30 | Cardiology Progress Note ---
Assessment/Plan Assessment/Plan 1. [id number] myocardial infarction, silent. 2. Fever and leukocytosis. 3. Probable urinary tract infection. 4. Status post recent ureteral stent placement. 5. Nephrolithiasis. 6. Coronary disease with history of stent. 7. History of hemorrhagic CVA, status post evacuation with left-sided hemiparesis. 8. History of deep venous thrombosis and pulmonary emboli status, on anticoagulation with Xarelto. 9. Phtn 10. Fernando relted to [facility] venous dupelx neg trop down trending still no sx to suggest acs / pe is off xarelto on heparin on Ecotrin lwo dose prelim echo noted phtn chronicity unknown no bed at [facility] have recommended that pt consider tx to [facility] await transfer to cath faclity of note: he did not experience any cp prior to his stent in 2004 only sob Subjective Cardiovascular: Denies: chest pain, lightheadedness, palpitations Respiratory: Denies: shortness of breath Gastrointestinal/Abdominal: Denies: abdominal pain Genitourinary: Denies: burning Objective Last 24 Hour Vital Signs Date Time Temp Pulse Resp B/P (MAP) Pulse Ox O2 Delivery O2 Flow Rate FiO2 12/21/17 16:00 41 12/21/17 16:00 98.2 48 18 140/80 (100) 99 12/21/17 12:00 47 12/21/17 12:00 97.6 49 18 149/74 (99) 97 12/21/17 09:00 Nasal Cannula 3.0 12/21/17 08:00 51 12/21/17 08:00 98.3 49 18 158/84 (108) 96 12/21/17 06:55 62 20 Nasal Cannula 3.0 32 12/21/17 06:55 Nasal Cannula 3.0 32 12/21/17 06:55 98 Nasal Cannula 3.0 32 12/21/17 04:36 98.0 49 16 159/77 (104) 97 12/21/17 04:00 37 12/21/17 01:00 180/89 12/21/17 01:00 150/74 (99) 12/21/17 00:00 42 12/21/17 00:00 97.0 40 16 183/90 (121) 92 12/20/17 21:00 Nasal Cannula 3.0 12/20/17 20:00 98.3 40 16 153/74 (100) 92 12/20/17 19:43 37 General Appearance: alert Neck: supple Cardiovascular: normal rate, bradycardia Respiratory/Chest: lungs clear Abdomen: normal bowel sounds, non tender, soft Extremities: no swelling Intake and Output 12/20/17 12/21/17 18:59 06:59 Intake Total 480 ml 229.9 ml Output Total 1500 ml Balance 480 ml -1270.1 ml Intake Oral 480 ml IV Total 229.9 ml Output Urine Total 1500 ml # Bowel Movements 1 1 Laboratory Tests Test 12/21/17 04:04 White Blood Count 6.7 K/UL (4.8-10.8) Red Blood Count 3.42 M/UL (4.70-6.10) L Hemoglobin 10.1 G/DL (14.2-18.0) L Hematocrit 30.0 % (42.0-52.0) L Mean Corpuscular Volume 88 FL (80-99) Mean Corpuscular Hemoglobin 29.5 PG (27.0-31.0) Mean Corpuscular Hemoglobin Concent 33.6 G/DL (32.0-36.0) Red Cell Distribution Width 12.9 % (11.6-14.8) Platelet Count 198 K/UL (150-450) Mean Platelet Volume 7.0 FL (6.5-10.1) Neutrophils (%) (Auto) 57.3 % (45.0-75.0) Lymphocytes (%) (Auto) 30.4 % (20.0-45.0) Monocytes (%) (Auto) 8.2 % (1.0-10.0) Eosinophils (%) (Auto) 3.5 % (0.0-3.0) H Basophils (%) (Auto) 0.6 % (0.0-2.0) Activated Partial Thromboplast Time 75 SEC (23-33) H Sodium Level 142 MMOL/L (136-145) Potassium Level 3.9 MMOL/L (3.5-5.1) Chloride Level 107 MMOL/L (98-107) Carbon Dioxide Level 30 MMOL/L (21-32) Anion Gap 5 mmol/L (5-15) Blood Urea Nitrogen 17 mg/dL (7-18) Creatinine 1.3 MG/DL (0.55-1.30) Estimat Glomerular Filtration Rate mL/min (>60) Glucose Level 123 MG/DL (74-106) H Calcium Level 8.5 MG/DL (8.5-10.1) Phosphorus Level 3.6 MG/DL (2.5-4.9) Magnesium Level 1.6 MG/DL (1.8-2.4) L Total Bilirubin 0.4 MG/DL (0.2-1.0) Aspartate Amino Transf (AST/SGOT) 54 U/L (15-37) H Alanine Aminotransferase (ALT/SGPT) 119 U/L (12-78) H Alkaline Phosphatase 173 U/L (46-116) H Total Protein 6.0 G/DL (6.4-8.2) L Albumin 2.2 G/DL (3.4-5.0) L Globulin 3.8 g/dL Albumin/Globulin Ratio 0.6 (1.0-2.7) L Chalo Alfonso MD Dec 21, 2017 19:30
[2017-12-21] MEDS: Tamsulosin 0.4mg cap ORAL SCH (21:29)
[2017-12-21] MEDS: Atorvastatin 80mg tab ORAL SCH (21:29)
--- NOTE | 2017-12-21 23:45 | General Progress Note ---
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 Subjective Neurologic/Psychiatric: Reports: anxiety, depressed, emotional problems Allergies: Coded Allergies: No Known Allergies (Unverified , 12/15/17) Objective Last 24 Hour Vital Signs Date Time Temp Pulse Resp B/P (MAP) Pulse Ox O2 Delivery O2 Flow Rate FiO2 12/21/17 16:00 41 12/21/17 16:00 98.2 48 18 140/80 (100) 99 12/21/17 12:00 47 12/21/17 12:00 97.6 49 18 149/74 (99) 97 12/21/17 09:00 Nasal Cannula 3.0 12/21/17 08:00 51 12/21/17 08:00 98.3 49 18 158/84 (108) 96 12/21/17 06:55 62 20 Nasal Cannula 3.0 32 12/21/17 06:55 Nasal Cannula 3.0 32 12/21/17 06:55 98 Nasal Cannula 3.0 32 12/21/17 04:36 98.0 49 16 159/77 (104) 97 12/21/17 04:00 37 12/21/17 01:00 180/89 12/21/17 01:00 150/74 (99) 12/21/17 00:00 42 12/21/17 00:00 97.0 40 16 183/90 (121) 92 Intake and Output 12/20/17 12/21/17 19:00 07:00 Intake Total 480 ml 229.9 ml Output Total 1500 ml Balance 480 ml -1270.1 ml Intake Oral 480 ml IV Total 229.9 ml Output Urine Total 1500 ml # Bowel Movements 1 1 Laboratory Tests 12/21/17 04:04: White Blood Count 6.7, Red Blood Count 3.42L, Hemoglobin 10.1L, Hematocrit 30.0L , Mean Corpuscular Volume 88, Mean Corpuscular Hemoglobin 29.5, Mean Corpuscular Hemoglobin Concent 33.6, Red Cell Distribution Width 12.9, Platelet Count 198, Mean Platelet Volume 7.0, Neutrophils (%) (Auto) 57.3, Lymphocytes (% ) (Auto) 30.4, Monocytes (%) (Auto) 8.2, Eosinophils (%) (Auto) 3.5H, Basophils (%) (Auto) 0.6, Activated Partial Thromboplast Time 75H, Sodium Level 142, Potassium Level 3.9, Chloride Level 107, Carbon Dioxide Level 30, Anion Gap 5, Blood Urea Nitrogen 17, Creatinine 1.3, Estimat Glomerular Filtration Rate , Glucose Level 123H, Calcium Level 8.5, Phosphorus Level 3.6, Magnesium Level 1.6L, Total Bilirubin 0.4, Aspartate Amino Transf (AST/SGOT) 54H, Alanine Aminotransferase (ALT/SGPT) 119H, Alkaline Phosphatase 173H, Total Protein 6.0L , Albumin 2.2L, Globulin 3.8, Albumin/Globulin Ratio 0.6L Height (Feet): 5 Height (Inches): 7.00 Weight (Pounds): 208 General Appearance: alert Neurologic: responsive, depressed affect Aaron Arreguin MD Dec 21, 2017 23:45
[2017-12-22] VITALS: BP 157/72
[2017-12-22 04:00] VITALS: BP 126/60
[2017-12-22] MEDS: Heparin 25,000u/D5W 500ml 500 ML IV SCH ×2 (07:31→11:56)
--- NOTE | 2017-12-22 07:38 | Urology Progress Note ---
Assessment/Plan Assessment/Plan 1. History of nephrolithiasis. 2. History of colic and hydro with right indwelling ureteral stent. 3. Benign prostatic hypertrophy history. 4. Hematuria. 5. Urinary tract infection. 6. Proteinuria. 7. Hydrocele. 8. Urinary frequency history. 9. Probable neurogenic bladder. 10. Acute kidney injury, which is better. 11. Sepsis. abx as ordered cont flomax and proscar tx of stones later f/u on repeat blood cx Subjective Allergies: Coded Allergies: No Known Allergies (Unverified , 12/15/17) Subjective lethargic, voiding, condom cath Objective Last 24 Hour Vital Signs Date Time Temp Pulse Resp B/P (MAP) Pulse Ox O2 Delivery O2 Flow Rate FiO2 12/22/17 04:00 97.7 63 20 126/60 (82) 97 12/22/17 04:00 42 12/22/17 00:00 98.5 49 20 157/72 (100) 98 12/22/17 00:00 44 12/21/17 21:00 Nasal Cannula 3.0 12/21/17 20:00 50 12/21/17 20:00 98.4 50 20 148/78 (101) 99 12/21/17 16:00 41 12/21/17 16:00 98.2 48 18 140/80 (100) 99 12/21/17 12:00 47 12/21/17 12:00 97.6 49 18 149/74 (99) 97 12/21/17 09:00 Nasal Cannula 3.0 12/21/17 08:00 51 12/21/17 08:00 98.3 49 18 158/84 (108) 96 Intake and Output 12/21/17 12/22/17 19:00 07:00 Intake Total 360 ml Output Total 1000 ml 1800 ml Balance -640 ml -1800 ml Intake Oral 360 ml Output Urine Total 1000 ml 1800 ml # Bowel Movements 1 1 Microbiology Date/Time Source Procedure Growth Status 12/17/17 11:50 Blood Blood Culture - Preliminary NO GROWTH AFTER 4 DAYS Resulted 12/15/17 17:45 Nasal Nares MRSA Culture - Final NO METHICILLIN RESISTANT STAPH AUREUS... Complete 12/16/17 17:25 Urine,Clean Catch Urine Culture - Final NO GROWTH AFTER 48 HOURS Complete 12/15/17 17:45 Rectum VRE Culture - Final Enterococcus Faecium - Vre Complete 12/15/17 17:45 Rectum - Final NO CARBAPENEM-RESISTANT ENTEROBACTERI... Complete Current Medications Medications (Trade) Dose Ordered Sig/Denisa Route PRN Reason Start Time Stop Time Status Last Admin Dose Admin Acetaminophen (Tylenol) 650 mg Q4H PRN ORAL Mild Pain/Temp > 100.5 12/19/17 14:07 01/16/18 14:06 12/21/17 21:31 Albuterol/ Ipratropium (Albuterol/ Ipratropium) 3 ml Q4H PRN HHN Shortness of Breath 12/19/17 14:07 12/22/17 14:06 Aspirin (ASA) 81 mg DAILY ORAL 12/20/17 09:00 01/15/18 08:59 12/21/17 09:50 Atorvastatin Calcium (Lipitor) 80 mg BEDTIME ORAL 12/19/17 21:00 01/14/18 20:59 12/21/17 21:29 Enalaprilat (Vasotec) 2.5 mg Q6H PRN IV sbp more than 160mmHg 12/19/17 14:08 01/14/18 14:07 12/21/17 01:00 EZETIMIBE (Zetia) 10 mg BEDTIME ORAL 12/19/17 21:00 01/15/18 20:59 12/21/17 21:29 Famotidine (Pepcid) 20 mg Q12HR ORAL 12/21/17 21:00 01/20/18 20:59 12/21/17 21:30 Finasteride (Proscar) 5 mg DAILY ORAL 12/20/17 09:00 01/16/18 08:59 12/21/17 09:50 Gabapentin (Neurontin) 600 mg THREE TIMES A DAY ORAL 12/21/17 13:00 01/20/18 12:59 12/21/17 18:07 Heparin Sodium/ Dextrose 500 ml @ 20.9 mls/hr ADJUST PER PROTOCOL IV 12/20/17 02:00 01/18/18 18:39 12/22/17 07:31 Levofloxacin 150 ml @ 100 mls/hr Q24H IVPB 12/19/17 15:00 12/26/17 14:59 12/21/17 15:13 Morphine Sulfate (Morphine Sulfate) 2 mg Q4H PRN IVP severe Pain (Pain Scale 7-10) 12/19/17 14:09 12/22/17 14:08 Nitroglycerin (Ntg) 0.4 mg Q5M PRN SL Prn Chest Pain 12/19/17 14:09 01/14/18 14:08 Ondansetron HCl (Zofran) 4 mg Q6H PRN IVP Nausea & Vomiting 12/19/17 14:11 01/14/18 14:10 12/21/17 07:40 Polyethylene Glycol (Miralax) 17 gm DAILYPRN PRN ORAL Constipation 12/19/17 14:11 01/14/18 14:10 Quetiapine Fumarate (SEROquel) 12.5 mg Q4H PRN ORAL anxiety 12/20/17 13:45 01/19/18 13:44 Sodium Chloride 1,000 ml @ 75 mls/hr [id number] IV 12/19/17 14:07 01/15/18 14:06 12/21/17 22:42 Tamsulosin HCl (Flomax) 0.4 mg BEDTIME ORAL 12/19/17 21:00 01/15/18 20:59 12/21/17 21:29 Temazepam (Restoril) 15 mg HSPRN PRN ORAL Insomnia 12/19/17 14:12 12/22/17 14:11 Height (Feet): 5 Height (Inches): 7.00 Weight (Pounds): 226 Objective abdomen soft, urine grossly yellow/ciara KUB noted Kevin Thompson MD Dec 22, 2017 07:38
[2017-12-22 08:00] VITALS: BP 167/74
[2017-12-22] MEDS: Aspirin Baby 81mg ORAL SCH (08:39)
[2017-12-22] MEDS: Enalaprilat 2.5mg/2ml Inj IV PRN (08:40)
[2017-12-22 08:43] LABS: BASOPHILS % (AUTO) 1.2 % (0.0-2.0); EOSINOPHILS % (AUTO) 3.4 % (0.0-3.0); HEMATOCRIT 30.4 % (42.0-52.0); HEMOGLOBIN 10.1 G/DL (14.2-18.0); LYMPHOCYTES % (AUTO) 28.7 % (20.0-45.0); MEAN CORPUSCULAR VOLUME 89 FL (80-99); MONOCYTES % (AUTO) 8.2 % (1.0-10.0); NEUTROPHILS % (AUTO) 58.5 % (45.0-75.0); PLATELET COUNT 199 K/UL (150-450); RED BLOOD COUNT 3.42 M/UL (4.70-6.10); RED CELL DISTRIBUTION WIDTH 12.8 % (11.6-14.8); WHITE BLOOD COUNT 6.3 K/UL (4.8-10.8)
[2017-12-22 09:17] LABS: ALANINE AMINOTRANSFERASE 91 U/L (12-78); ALBUMIN 2.4 G/DL (3.4-5.0); ALBUMIN/GLOBULIN RATIO 0.6 (1.0-2.7); ALKALINE PHOSPHATASE 163 U/L (46-116); ANION GAP 5 mmol/L (5-15); ASPARTATE AMINO TRANSFERASE 40 U/L (15-37); BILIRUBIN,TOTAL 0.5 MG/DL (0.2-1.0); BLOOD UREA NITROGEN 13 mg/dL (7-18); CALCIUM 8.9 MG/DL (8.5-10.1); CARBON DIOXIDE 31 MMOL/L (21-32); CHLORIDE 105 MMOL/L (98-107); CREATININE 1.2 MG/DL (0.55-1.30); POTASSIUM 3.6 MMOL/L (3.5-5.1); SODIUM 141 MMOL/L (136-145)
--- NOTE | 2017-12-22 11:05 | Pulmonology Progress Note ---
Assessment/Plan Problems: (1) Sepsis (2) NSTEMI (non-ST elevated myocardial infarction) (3) ATN (acute tubular necrosis) (4) Renal calculus (5) CVA, old, hemiparesis (6) Chronic anticoagulation (7) Cerebral vascular disease (8) Hypertension Assessment/Plan afebrile repeat BC are negative on IV heparin bradycardic, B-grey stopped BC has Pseudomonas monitor BP repeat Troponin, decreasing talked to transfer center extensively, they are over their capacity. Subjective Interval Events: late note for 12/21. discussed extensively with the pts at the bed sit Allergies: Coded Allergies: No Known Allergies (Unverified , 12/15/17) Objective Last 24 Hour Vital Signs Date Time Temp Pulse Resp B/P (MAP) Pulse Ox O2 Delivery O2 Flow Rate FiO2 12/22/17 08:40 167/74 12/22/17 08:00 97.2 55 16 167/74 (105) 98 12/22/17 08:00 37 12/22/17 04:00 97.7 63 20 126/60 (82) 97 12/22/17 04:00 42 12/22/17 00:00 98.5 49 20 157/72 (100) 98 12/22/17 00:00 44 12/21/17 21:00 Nasal Cannula 3.0 12/21/17 20:00 50 12/21/17 20:00 98.4 50 20 148/78 (101) 99 12/21/17 16:00 41 12/21/17 16:00 98.2 48 18 140/80 (100) 99 12/21/17 12:00 47 12/21/17 12:00 97.6 49 18 149/74 (99) 97 Intake and Output 12/21/17 12/22/17 19:00 07:00 Intake Total 360 ml Output Total 1000 ml 1800 ml Balance -640 ml -1800 ml Intake Oral 360 ml Output Urine Total 1000 ml 1800 ml # Bowel Movements 1 1 General Appearance: WD/WN HEENT: normocephalic, atraumatic Respiratory/Chest: chest wall non-tender, lungs clear Cardiovascular: normal peripheral pulses, normal rate Abdomen: normal bowel sounds, soft, non tender Genitourinary: normal external genitalia Skin: no rash Neurologic/Psychiatric: rejector II-XII grossly normal Laboratory Tests 12/22/17 07:38: White Blood Count 6.3, Red Blood Count 3.42L, Hemoglobin 10.1L, Hematocrit 30.4L , Mean Corpuscular Volume 89, Mean Corpuscular Hemoglobin 29.6, Mean Corpuscular Hemoglobin Concent 33.3, Red Cell Distribution Width 12.8, Platelet Count 199, Mean Platelet Volume 6.5, Neutrophils (%) (Auto) 58.5, Lymphocytes (% ) (Auto) 28.7, Monocytes (%) (Auto) 8.2, Eosinophils (%) (Auto) 3.4H, Basophils (%) (Auto) 1.2, Activated Partial Thromboplast Time 37H, Sodium Level 141, Potassium Level 3.6, Chloride Level 105, Carbon Dioxide Level 31, Anion Gap 5, Blood Urea Nitrogen 13, Creatinine 1.2, Estimat Glomerular Filtration Rate , Glucose Level 109H, Calcium Level 8.9, Total Bilirubin 0.5, Aspartate Amino Transf (AST/SGOT) 40H, Alanine Aminotransferase (ALT/SGPT) 91H, Alkaline Phosphatase 163H, Total Protein 6.6, Albumin 2.4L, Globulin 4.2, Albumin/ Globulin Ratio 0.6L, Hepatitis A IgM Antibody [Pending], Hepatitis B Surface Antigen [Pending], Hepatitis B Core IgM Antibody [Pending], Hepatitis C Antibody [Pending] 12/22/17 09:45: Activated Partial Thromboplast Time [Pending] Current Medications Medications (Trade) Dose Ordered Sig/Denisa Route PRN Reason Start Time Stop Time Status Last Admin Dose Admin Acetaminophen (Tylenol) 650 mg Q4H PRN ORAL Mild Pain/Temp > 100.5 12/19/17 14:07 01/16/18 14:06 12/21/17 21:31 Albuterol/ Ipratropium (Albuterol/ Ipratropium) 3 ml Q4H PRN HHN Shortness of Breath 12/19/17 14:07 12/22/17 14:06 Aspirin (ASA) 81 mg DAILY ORAL 12/20/17 09:00 01/15/18 08:59 12/22/17 08:39 Atorvastatin Calcium (Lipitor) 80 mg BEDTIME ORAL 12/19/17 21:00 01/14/18 20:59 12/21/17 21:29 Enalaprilat (Vasotec) 2.5 mg Q6H PRN IV sbp more than 160mmHg 12/19/17 14:08 01/14/18 14:07 12/22/17 08:40 EZETIMIBE (Zetia) 10 mg BEDTIME ORAL 12/19/17 21:00 01/15/18 20:59 12/21/17 21:29 Famotidine (Pepcid) 20 mg Q12HR ORAL 12/21/17 21:00 01/20/18 20:59 12/22/17 08:40 Finasteride (Proscar) 5 mg DAILY ORAL 12/20/17 09:00 01/16/18 08:59 12/22/17 08:40 Gabapentin (Neurontin) 600 mg THREE TIMES A DAY ORAL 12/21/17 13:00 01/20/18 12:59 12/22/17 08:40 Heparin Sodium/ Dextrose 500 ml @ 20.9 mls/hr ADJUST PER PROTOCOL IV 12/20/17 02:00 01/18/18 18:39 12/22/17 07:31 Levofloxacin 150 ml @ 100 mls/hr Q24H IVPB 12/19/17 15:00 12/26/17 14:59 12/21/17 15:13 Morphine Sulfate (Morphine Sulfate) 2 mg Q4H PRN IVP severe Pain (Pain Scale 7-10) 12/19/17 14:09 12/22/17 14:08 Nitroglycerin (Ntg) 0.4 mg Q5M PRN SL Prn Chest Pain 12/19/17 14:09 01/14/18 14:08 Ondansetron HCl (Zofran) 4 mg Q6H PRN IVP Nausea & Vomiting 12/19/17 14:11 01/14/18 14:10 12/21/17 07:40 Polyethylene Glycol (Miralax) 17 gm DAILYPRN PRN ORAL Constipation 12/19/17 14:11 01/14/18 14:10 Quetiapine Fumarate (SEROquel) 12.5 mg Q4H PRN ORAL anxiety 12/20/17 13:45 01/19/18 13:44 Sodium Chloride 1,000 ml @ 75 mls/hr [id number] IV 12/19/17 14:07 01/15/18 14:06 12/22/17 08:39 Tamsulosin HCl (Flomax) 0.4 mg BEDTIME ORAL 12/19/17 21:00 01/15/18 20:59 12/21/17 21:29 Temazepam (Restoril) 15 mg HSPRN PRN ORAL Insomnia 12/19/17 14:12 12/22/17 14:11 Scott Hoover MD Dec 22, 2017 11:05
--- NOTE | 2017-12-22 11:08 | Pulmonology Progress Note ---
Assessment/Plan Problems: (1) Sepsis (2) NSTEMI (non-ST elevated myocardial infarction) (3) ATN (acute tubular necrosis) (4) Renal calculus (5) CVA, old, hemiparesis (6) Chronic anticoagulation (7) Cerebral vascular disease (8) Hypertension Assessment/Plan afebrile repeat BC are negative on IV heparin bradycardic, B-grey stopped BC has Pseudomonas monitor BP repeat Troponin, decreasing talked to transfer center extensively, they are over their capacity. Subjective ROS Limited/Unobtainable: No Interval Events: doing better, stronger, in better mood Allergies: Coded Allergies: No Known Allergies (Unverified , 12/15/17) Objective Last 24 Hour Vital Signs Date Time Temp Pulse Resp B/P (MAP) Pulse Ox O2 Delivery O2 Flow Rate FiO2 12/22/17 08:40 167/74 12/22/17 08:00 97.2 55 16 167/74 (105) 98 12/22/17 08:00 37 12/22/17 04:00 97.7 63 20 126/60 (82) 97 12/22/17 04:00 42 12/22/17 00:00 98.5 49 20 157/72 (100) 98 12/22/17 00:00 44 12/21/17 21:00 Nasal Cannula 3.0 12/21/17 20:00 50 12/21/17 20:00 98.4 50 20 148/78 (101) 99 12/21/17 16:00 41 12/21/17 16:00 98.2 48 18 140/80 (100) 99 12/21/17 12:00 47 12/21/17 12:00 97.6 49 18 149/74 (99) 97 Intake and Output 12/21/17 12/22/17 19:00 07:00 Intake Total 360 ml Output Total 1000 ml 1800 ml Balance -640 ml -1800 ml Intake Oral 360 ml Output Urine Total 1000 ml 1800 ml # Bowel Movements 1 1 General Appearance: WD/WN HEENT: normocephalic, anicteric Respiratory/Chest: chest wall non-tender, lungs clear Cardiovascular: normal peripheral pulses, normal rate Abdomen: normal bowel sounds, soft, non tender Extremities: no cyanosis 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 Laboratory Tests 12/22/17 07:38: White Blood Count 6.3, Red Blood Count 3.42L, Hemoglobin 10.1L, Hematocrit 30.4L , Mean Corpuscular Volume 89, Mean Corpuscular Hemoglobin 29.6, Mean Corpuscular Hemoglobin Concent 33.3, Red Cell Distribution Width 12.8, Platelet Count 199, Mean Platelet Volume 6.5, Neutrophils (%) (Auto) 58.5, Lymphocytes (% ) (Auto) 28.7, Monocytes (%) (Auto) 8.2, Eosinophils (%) (Auto) 3.4H, Basophils (%) (Auto) 1.2, Activated Partial Thromboplast Time 37H, Sodium Level 141, Potassium Level 3.6, Chloride Level 105, Carbon Dioxide Level 31, Anion Gap 5, Blood Urea Nitrogen 13, Creatinine 1.2, Estimat Glomerular Filtration Rate , Glucose Level 109H, Calcium Level 8.9, Total Bilirubin 0.5, Aspartate Amino Transf (AST/SGOT) 40H, Alanine Aminotransferase (ALT/SGPT) 91H, Alkaline Phosphatase 163H, Total Protein 6.6, Albumin 2.4L, Globulin 4.2, Albumin/ Globulin Ratio 0.6L, Hepatitis A IgM Antibody [Pending], Hepatitis B Surface Antigen [Pending], Hepatitis B Core IgM Antibody [Pending], Hepatitis C Antibody [Pending] 12/22/17 09:45: Activated Partial Thromboplast Time [Pending] Current Medications Medications (Trade) Dose Ordered Sig/Denisa Route PRN Reason Start Time Stop Time Status Last Admin Dose Admin Acetaminophen (Tylenol) 650 mg Q4H PRN ORAL Mild Pain/Temp > 100.5 12/19/17 14:07 01/16/18 14:06 12/21/17 21:31 Albuterol/ Ipratropium (Albuterol/ Ipratropium) 3 ml Q4H PRN HHN Shortness of Breath 12/19/17 14:07 12/22/17 14:06 Aspirin (ASA) 81 mg DAILY ORAL 12/20/17 09:00 01/15/18 08:59 12/22/17 08:39 Atorvastatin Calcium (Lipitor) 80 mg BEDTIME ORAL 12/19/17 21:00 01/14/18 20:59 12/21/17 21:29 Enalaprilat (Vasotec) 2.5 mg Q6H PRN IV sbp more than 160mmHg 12/19/17 14:08 01/14/18 14:07 12/22/17 08:40 EZETIMIBE (Zetia) 10 mg BEDTIME ORAL 12/19/17 21:00 01/15/18 20:59 12/21/17 21:29 Famotidine (Pepcid) 20 mg Q12HR ORAL 12/21/17 21:00 01/20/18 20:59 12/22/17 08:40 Finasteride (Proscar) 5 mg DAILY ORAL 12/20/17 09:00 01/16/18 08:59 12/22/17 08:40 Gabapentin (Neurontin) 600 mg THREE TIMES A DAY ORAL 12/21/17 13:00 01/20/18 12:59 12/22/17 08:40 Heparin Sodium/ Dextrose 500 ml @ 20.9 mls/hr ADJUST PER PROTOCOL IV 12/20/17 02:00 01/18/18 18:39 12/22/17 07:31 Levofloxacin 150 ml @ 100 mls/hr Q24H IVPB 12/19/17 15:00 12/26/17 14:59 12/21/17 15:13 Morphine Sulfate (Morphine Sulfate) 2 mg Q4H PRN IVP severe Pain (Pain Scale 7-10) 12/19/17 14:09 12/22/17 14:08 Nitroglycerin (Ntg) 0.4 mg Q5M PRN SL Prn Chest Pain 12/19/17 14:09 01/14/18 14:08 Ondansetron HCl (Zofran) 4 mg Q6H PRN IVP Nausea & Vomiting 12/19/17 14:11 01/14/18 14:10 12/21/17 07:40 Polyethylene Glycol (Miralax) 17 gm DAILYPRN PRN ORAL Constipation 12/19/17 14:11 01/14/18 14:10 Quetiapine Fumarate (SEROquel) 12.5 mg Q4H PRN ORAL anxiety 12/20/17 13:45 01/19/18 13:44 Sodium Chloride 1,000 ml @ 75 mls/hr [id number] IV 12/19/17 14:07 01/15/18 14:06 12/22/17 08:39 Tamsulosin HCl (Flomax) 0.4 mg BEDTIME ORAL 12/19/17 21:00 01/15/18 20:59 12/21/17 21:29 Temazepam (Restoril) 15 mg HSPRN PRN ORAL Insomnia 12/19/17 14:12 12/22/17 14:11 Scott Hoover MD Dec 22, 2017 11:08
[2017-12-22] MEDS ORDERED: Heparin 5000 units/ml inj IV SCH (11:45)
[2017-12-22 12:00] VITALS: BP 144/76
--- NOTE | 2017-12-22 15:04 | Diagnostic Imaging Report ---
Indication: Abdominal pain, abnormal liver function tests Technique: Callahan-scale and duplex images of the upper abdomen were obtained. Doppler interrogation of the hepatic and pancreatic vessels Comparison: Reference made to abdomen pelvis CT dated 12/15/2017 Findings: Exam is limited. Patient unable to turn in part due to pain in part due to left-sided hemiplegia. Exam also limited by overlying bowel gas. Gallbladder demonstrates sludge and tiny stones. No gallbladder wall thickening or pericholecystic fluid Sonographic Busch's sign is negative. Common bile duct measures for mm in diameter. No intrahepatic biliary ductal dilatation. Liver demonstrates coarsened increased echogenicity Portal vein and hepatic veins are patent. Pancreas is unremarkable. The spleen is enlarged, measuring 15.4 cm long axis dimension. Left kidney measures 11.4 cm in length. Right kidney measures 11.6 cm length. Both kidneys demonstrate normal echogenicity. There is no hydronephrosis. Echogenic foci within the renal sinuses bilaterally presumably reflect small calculi demonstrated on recent CT scan . Note that right nephroureteral stent demonstrated on recent CT scan is not clearly evident sonographically. Abdominal aorta is obscured by bowel gas . Impression: Somewhat limited exam, as described. Note nonvisualization of the abdominal aorta Cholelithiasis and gallbladder sludge. Negative for dilated ducts. Coarsened hepatic echogenicity. Presumably represents hepatocellular disease, nonspecific as regards etiology. Not likely steatosis, as normal hepatic attenuation demonstrated on recent CT scan Splenomegaly Nonobstructive bilateral renal calculi, also previously described on CT
--- NOTE | 2017-12-22 15:56 | Infectious Diseases Prog Note ---
Assessment/Plan Assessment/Plan ASSESSMENT: The patient is a 77-year-old male with: Sepsis UTI bacteremia US : Right nephroureteral stent and right nephrolithiasis, also previously demonstrated -ucx PsA (finch S); repeat ucx NTD -12/15 Bcx 02/10 PSA -CT abd/p: Multiple nonobstructive stones within both kidneys as described above. Right ureteral stent in good position. No hydronephrosis. Perinephric stranding nonspecific. Moderate fecal retention. Prostate hypertrophy.Gallstones versus sludge. Transaminitis ( m/l due to sepsis) US of Abd : Biliary dis Leukocytosis, SP Fever, Sp Non-STEMI. Anemia. Renal stone s/p recent stent Hypertension CAD. Diabetes. BPH. History of DVT. History of CVA. VRE colonized PLAN: Cont IV Levaquin d# 4/ 7 11 SP IV cefepime day # 4 Monitor CBC and BMP. Monitor cultures (blood ) Uro fup hep panel :P transfer to [facility] for Angio Subjective Allergies: Coded Allergies: No Known Allergies (Unverified , 12/15/17) Subjective no new complain Objective Vital Signs Last 24 Hour Vital Signs Date Time Temp Pulse Resp B/P (MAP) Pulse Ox O2 Delivery O2 Flow Rate FiO2 12/22/17 09:00 Nasal Cannula 3.0 12/22/17 08:40 167/74 12/22/17 08:00 97.2 55 16 167/74 (105) 98 12/22/17 08:00 37 12/22/17 04:00 97.7 63 20 126/60 (82) 97 12/22/17 04:00 42 12/22/17 00:00 98.5 49 20 157/72 (100) 98 12/22/17 00:00 44 12/21/17 21:00 Nasal Cannula 3.0 12/21/17 20:00 50 12/21/17 20:00 98.4 50 20 148/78 (101) 99 12/21/17 16:00 41 12/21/17 16:00 98.2 48 18 140/80 (100) 99 Height (Feet): 5 Height (Inches): 7.00 Weight (Pounds): 226 HEENT: anicteric Respiratory/Chest: normal breath sounds Cardiovascular: no gallop/murmur Abdomen: non distended Laboratory Tests Test 12/22/17 07:38 12/22/17 09:45 White Blood Count 6.3 K/UL (4.8-10.8) Red Blood Count 3.42 M/UL (4.70-6.10) L Hemoglobin 10.1 G/DL (14.2-18.0) L Hematocrit 30.4 % (42.0-52.0) L Mean Corpuscular Volume 89 FL (80-99) Mean Corpuscular Hemoglobin 29.6 PG (27.0-31.0) Mean Corpuscular Hemoglobin Concent 33.3 G/DL (32.0-36.0) Red Cell Distribution Width 12.8 % (11.6-14.8) Platelet Count 199 K/UL (150-450) Mean Platelet Volume 6.5 FL (6.5-10.1) Neutrophils (%) (Auto) 58.5 % (45.0-75.0) Lymphocytes (%) (Auto) 28.7 % (20.0-45.0) Monocytes (%) (Auto) 8.2 % (1.0-10.0) Eosinophils (%) (Auto) 3.4 % (0.0-3.0) H Basophils (%) (Auto) 1.2 % (0.0-2.0) Activated Partial Thromboplast Time 37 SEC (23-33) H 48 SEC (23-33) H Sodium Level 141 MMOL/L (136-145) Potassium Level 3.6 MMOL/L (3.5-5.1) Chloride Level 105 MMOL/L (98-107) Carbon Dioxide Level 31 MMOL/L (21-32) Anion Gap 5 mmol/L (5-15) Blood Urea Nitrogen 13 mg/dL (7-18) Creatinine 1.2 MG/DL (0.55-1.30) Estimat Glomerular Filtration Rate mL/min (>60) Glucose Level 109 MG/DL (74-106) H Calcium Level 8.9 MG/DL (8.5-10.1) Total Bilirubin 0.5 MG/DL (0.2-1.0) Aspartate Amino Transf (AST/SGOT) 40 U/L (15-37) H Alanine Aminotransferase (ALT/SGPT) 91 U/L (12-78) H Alkaline Phosphatase 163 U/L (46-116) H Total Protein 6.6 G/DL (6.4-8.2) Albumin 2.4 G/DL (3.4-5.0) L Globulin 4.2 g/dL Albumin/Globulin Ratio 0.6 (1.0-2.7) L Hepatitis A IgM Antibody Pending Hepatitis B Surface Antigen Pending Hepatitis B Core IgM Antibody Pending Hepatitis C Antibody Pending Current Medications Medications (Trade) Dose Ordered Sig/Denisa Route PRN Reason Start Time Stop Time Status Last Admin Dose Admin Acetaminophen (Tylenol) 650 mg Q4H PRN ORAL Mild Pain/Temp > 100.5 12/19/17 14:07 01/16/18 14:06 12/22/17 15:24 Aspirin (ASA) 81 mg DAILY ORAL 12/20/17 09:00 01/15/18 08:59 12/22/17 08:39 Atorvastatin Calcium (Lipitor) 80 mg BEDTIME ORAL 12/19/17 21:00 01/14/18 20:59 12/21/17 21:29 Enalaprilat (Vasotec) 2.5 mg Q6H PRN IV sbp more than 160mmHg 12/19/17 14:08 01/14/18 14:07 12/22/17 08:40 EZETIMIBE (Zetia) 10 mg BEDTIME ORAL 12/19/17 21:00 01/15/18 20:59 12/21/17 21:29 Famotidine (Pepcid) 20 mg Q12HR ORAL 12/21/17 21:00 01/20/18 20:59 12/22/17 08:40 Finasteride (Proscar) 5 mg DAILY ORAL 12/20/17 09:00 01/16/18 08:59 12/22/17 08:40 Gabapentin (Neurontin) 600 mg THREE TIMES A DAY ORAL 12/21/17 13:00 01/20/18 12:59 12/22/17 13:11 Heparin Sodium/ Dextrose 500 ml @ 28.5 mls/hr ADJUST PER PROTOCOL IV 12/20/17 02:00 01/18/18 18:39 12/22/17 11:56 Levofloxacin 150 ml @ 100 mls/hr Q24H IVPB 12/19/17 15:00 12/26/17 14:59 12/22/17 15:17 Nitroglycerin (Ntg) 0.4 mg Q5M PRN SL Prn Chest Pain 12/19/17 14:09 01/14/18 14:08 Ondansetron HCl (Zofran) 4 mg Q6H PRN IVP Nausea & Vomiting 12/19/17 14:11 01/14/18 14:10 12/21/17 07:40 Polyethylene Glycol (Miralax) 17 gm DAILYPRN PRN ORAL Constipation 12/19/17 14:11 01/14/18 14:10 Quetiapine Fumarate (SEROquel) 12.5 mg Q4H PRN ORAL anxiety 12/20/17 13:45 01/19/18 13:44 Sodium Chloride 1,000 ml @ 75 mls/hr [id number] IV 12/19/17 14:07 01/15/18 14:06 12/22/17 08:39 Tamsulosin HCl (Flomax) 0.4 mg BEDTIME ORAL 12/19/17 21:00 01/15/18 20:59 12/21/17 21:29 Prieto Millan MD Dec 22, 2017 15:56
[2017-12-22 16:00] VITALS: BP 139/72
--- NOTE | 2017-12-22 16:18 | Cardiac Electrophysiology PN ---
Assessment/Plan Assessment/Plan 1. Bradycardia. Still gama down to 39 despite being off metoprolol. We will watch him on telemetry. Keep off of any other sinus or AV telly affecting agent. Echocardiogram showed ejection fraction of 55%. 2. Non-ST elevation myocardial infarction and elevated cardiac enzymes. Still awaiting transfer to [facility] for cardiac catheterization. Refusing transfer to [facility] which is where he had his original stent placed . 3. History of DVT and pulmonary embolism. Xarelto is on hold. The patient is on heparin drip. 4. History of coronary artery disease with prior stent placement in 2004 at [facility]. 5. 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 ROHAN RN and case management coordinator Subjective Subjective Awaiting transfer to [facility] for cardiac cath. No CP or SOB. Still gama even when awake Objective Last 24 Hour Vital Signs Date Time Temp Pulse Resp B/P (MAP) Pulse Ox O2 Delivery O2 Flow Rate FiO2 12/22/17 09:00 Nasal Cannula 3.0 12/22/17 08:40 167/74 12/22/17 08:00 97.2 55 16 167/74 (105) 98 12/22/17 08:00 37 12/22/17 04:00 97.7 63 20 126/60 (82) 97 12/22/17 04:00 42 12/22/17 00:00 98.5 49 20 157/72 (100) 98 12/22/17 00:00 44 12/21/17 21:00 Nasal Cannula 3.0 12/21/17 20:00 50 12/21/17 20:00 98.4 50 20 148/78 (101) 99 Intake and Output 12/21/17 12/22/17 19:00 07:00 Intake Total 360 ml Output Total 1000 ml 1800 ml Balance -640 ml -1800 ml Intake Oral 360 ml Output Urine Total 1000 ml 1800 ml # Bowel Movements 1 1 Laboratory Tests Test 12/22/17 07:38 12/22/17 09:45 White Blood Count 6.3 K/UL (4.8-10.8) Red Blood Count 3.42 M/UL (4.70-6.10) L Hemoglobin 10.1 G/DL (14.2-18.0) L Hematocrit 30.4 % (42.0-52.0) L Mean Corpuscular Volume 89 FL (80-99) Mean Corpuscular Hemoglobin 29.6 PG (27.0-31.0) Mean Corpuscular Hemoglobin Concent 33.3 G/DL (32.0-36.0) Red Cell Distribution Width 12.8 % (11.6-14.8) Platelet Count 199 K/UL (150-450) Mean Platelet Volume 6.5 FL (6.5-10.1) Neutrophils (%) (Auto) 58.5 % (45.0-75.0) Lymphocytes (%) (Auto) 28.7 % (20.0-45.0) Monocytes (%) (Auto) 8.2 % (1.0-10.0) Eosinophils (%) (Auto) 3.4 % (0.0-3.0) H Basophils (%) (Auto) 1.2 % (0.0-2.0) Activated Partial Thromboplast Time 37 SEC (23-33) H 48 SEC (23-33) H Sodium Level 141 MMOL/L (136-145) Potassium Level 3.6 MMOL/L (3.5-5.1) Chloride Level 105 MMOL/L (98-107) Carbon Dioxide Level 31 MMOL/L (21-32) Anion Gap 5 mmol/L (5-15) Blood Urea Nitrogen 13 mg/dL (7-18) Creatinine 1.2 MG/DL (0.55-1.30) Estimat Glomerular Filtration Rate mL/min (>60) Glucose Level 109 MG/DL (74-106) H Calcium Level 8.9 MG/DL (8.5-10.1) Total Bilirubin 0.5 MG/DL (0.2-1.0) Aspartate Amino Transf (AST/SGOT) 40 U/L (15-37) H Alanine Aminotransferase (ALT/SGPT) 91 U/L (12-78) H Alkaline Phosphatase 163 U/L (46-116) H Total Protein 6.6 G/DL (6.4-8.2) Albumin 2.4 G/DL (3.4-5.0) L Globulin 4.2 g/dL Albumin/Globulin Ratio 0.6 (1.0-2.7) L Hepatitis A IgM Antibody Pending Hepatitis B Surface Antigen Pending Hepatitis B Core IgM Antibody Pending Hepatitis C Antibody Pending Objective HEAD AND NECK: No JVD. LUNGS: Clear. CARDIOVASCULAR: Regular S1 and S2 with no gallop or murmur. Bradycardic. ABDOMEN: Soft. Nontender EXTREMITIES: 1+ pitting edema. Romie Powell MD Dec 22, 2017 16:18
--- NOTE | 2017-12-22 17:11 | Internal Med Progress Note ---
Subjective Date of Service: Dec 22, 2017 Physician Name Blair,Mehdi Attending Physician Lito Ron MD Current Medications Medications (Trade) Dose Ordered Sig/Denisa Route PRN Reason Start Time Stop Time Status Last Admin Dose Admin Acetaminophen (Tylenol) 650 mg Q4H PRN ORAL Mild Pain/Temp > 100.5 12/19/17 14:07 01/16/18 14:06 12/22/17 15:24 Aspirin (ASA) 81 mg DAILY ORAL 12/20/17 09:00 01/15/18 08:59 12/22/17 08:39 Atorvastatin Calcium (Lipitor) 80 mg BEDTIME ORAL 12/19/17 21:00 01/14/18 20:59 12/21/17 21:29 Enalaprilat (Vasotec) 2.5 mg Q6H PRN IV sbp more than 160mmHg 12/19/17 14:08 01/14/18 14:07 12/22/17 08:40 EZETIMIBE (Zetia) 10 mg BEDTIME ORAL 12/19/17 21:00 01/15/18 20:59 12/21/17 21:29 Famotidine (Pepcid) 20 mg Q12HR ORAL 12/21/17 21:00 01/20/18 20:59 12/22/17 08:40 Finasteride (Proscar) 5 mg DAILY ORAL 12/20/17 09:00 01/16/18 08:59 12/22/17 08:40 Gabapentin (Neurontin) 600 mg THREE TIMES A DAY ORAL 12/21/17 13:00 01/20/18 12:59 12/22/17 13:11 Heparin Sodium/ Dextrose 500 ml @ 28.5 mls/hr ADJUST PER PROTOCOL IV 12/20/17 02:00 01/18/18 18:39 12/22/17 11:56 Levofloxacin 150 ml @ 100 mls/hr Q24H IVPB 12/19/17 15:00 12/26/17 14:59 12/22/17 15:17 Nitroglycerin (Ntg) 0.4 mg Q5M PRN SL Prn Chest Pain 12/19/17 14:09 01/14/18 14:08 Ondansetron HCl (Zofran) 4 mg Q6H PRN IVP Nausea & Vomiting 12/19/17 14:11 01/14/18 14:10 12/21/17 07:40 Polyethylene Glycol (Miralax) 17 gm DAILYPRN PRN ORAL Constipation 12/19/17 14:11 01/14/18 14:10 Quetiapine Fumarate (SEROquel) 12.5 mg Q4H PRN ORAL anxiety 12/20/17 13:45 01/19/18 13:44 Sodium Chloride 1,000 ml @ 75 mls/hr [id number] IV 12/19/17 14:07 01/15/18 14:06 12/22/17 08:39 Tamsulosin HCl (Flomax) 0.4 mg BEDTIME ORAL 12/19/17 21:00 01/15/18 20:59 12/21/17 21:29 Allergies: Coded Allergies: No Known Allergies (Unverified , 12/15/17) ROS Limited/Unobtainable: No Constitutional: Reports: no symptoms HEENT: Reports: no symptoms Cardiovascular: Reports: no symptoms Respiratory: Reports: no symptoms Gastrointestinal/Abdominal: Reports: no symptoms Genitourinary: Reports: no symptoms Neurologic/Psychiatric: Reports: no symptoms Subjective 77 YO M admitted with altered mental status. Now NSTEMI. Still bradycardic. Await transfer to [facility] for cardiac cath. Cover for Int Justin-Dr Ron Objective Last Vital Signs Date Time Temp Pulse Resp B/P (MAP) Pulse Ox O2 Delivery O2 Flow Rate FiO2 12/22/17 16:00 69 12/22/17 09:00 Nasal Cannula 3.0 12/22/17 08:40 167/74 12/22/17 08:00 97.2 16 98 12/21/17 06:55 32 Laboratory Tests Test 12/22/17 07:38 12/22/17 09:45 White Blood Count 6.3 K/UL (4.8-10.8) Red Blood Count 3.42 M/UL (4.70-6.10) L Hemoglobin 10.1 G/DL (14.2-18.0) L Hematocrit 30.4 % (42.0-52.0) L Mean Corpuscular Volume 89 FL (80-99) Mean Corpuscular Hemoglobin 29.6 PG (27.0-31.0) Mean Corpuscular Hemoglobin Concent 33.3 G/DL (32.0-36.0) Red Cell Distribution Width 12.8 % (11.6-14.8) Platelet Count 199 K/UL (150-450) Mean Platelet Volume 6.5 FL (6.5-10.1) Neutrophils (%) (Auto) 58.5 % (45.0-75.0) Lymphocytes (%) (Auto) 28.7 % (20.0-45.0) Monocytes (%) (Auto) 8.2 % (1.0-10.0) Eosinophils (%) (Auto) 3.4 % (0.0-3.0) H Basophils (%) (Auto) 1.2 % (0.0-2.0) Activated Partial Thromboplast Time 37 SEC (23-33) H 48 SEC (23-33) H Sodium Level 141 MMOL/L (136-145) Potassium Level 3.6 MMOL/L (3.5-5.1) Chloride Level 105 MMOL/L (98-107) Carbon Dioxide Level 31 MMOL/L (21-32) Anion Gap 5 mmol/L (5-15) Blood Urea Nitrogen 13 mg/dL (7-18) Creatinine 1.2 MG/DL (0.55-1.30) Estimat Glomerular Filtration Rate mL/min (>60) Glucose Level 109 MG/DL (74-106) H Calcium Level 8.9 MG/DL (8.5-10.1) Total Bilirubin 0.5 MG/DL (0.2-1.0) Aspartate Amino Transf (AST/SGOT) 40 U/L (15-37) H Alanine Aminotransferase (ALT/SGPT) 91 U/L (12-78) H Alkaline Phosphatase 163 U/L (46-116) H Total Protein 6.6 G/DL (6.4-8.2) Albumin 2.4 G/DL (3.4-5.0) L Globulin 4.2 g/dL Albumin/Globulin Ratio 0.6 (1.0-2.7) L Hepatitis A IgM Antibody Pending Hepatitis B Surface Antigen Pending Hepatitis B Core IgM Antibody Pending Hepatitis C Antibody Pending Intake and Output 12/21/17 12/22/17 19:00 07:00 Intake Total 360 ml Output Total 1000 ml 1800 ml Balance -640 ml -1800 ml Intake Oral 360 ml Output Urine Total 1000 ml 1800 ml # Bowel Movements 1 1 Objective Objective General: No acute distress, awake and alert HEENT: NCAT, sclera anicteric, PERRL, EOMI. Left facial droop. Neck: Supple, no significant jugular venous distention, Lungs: Fair inspiratory effort, no Wheeze or Rales. Heart: Regular rate and rhythm, normal S1/S2, no murmurs, distant heart sound. Abdomen: soft, nontender, nondistended. Normoactive bowel sounds. Obesity. Extremities: No Cyanosis , clubbing or edema. Neuro: A&O x 3, Able to move right side extremities, left side hemiparesis. Psych: Normal mood and affect Assessment/Plan Problem List: (1) NSTEMI (non-ST elevated myocardial infarction) Assessment & Plan: On heparin drip. Will require cardiac cath. Await transfer to [facility]-see cardiology note. (2) UTI (urinary tract infection) Assessment & Plan: Pseudamonas. Continue levaquin per ID (3) Sepsis Assessment & Plan: Pseudamonas - continue levaquin per ID (4) Renal calculus (5) Hypertension (6) Diabetes mellitus type II, uncontrolled (7) BPH (benign prostatic hyperplasia) (8) Deep venous embolism and thrombosis of left lower extremity Assessment & Plan: on heparin drip (9) Cerebral vascular disease (10) Hypercholesteremia (11) Bradycardia Assessment & Plan: await EP cardiology consult. Assessment/Plan Await transfer to [facility] for cardiac cath Mehdi Blair MD Dec 22, 2017 17:11
--- NOTE | 2017-12-22 18:36 | Cardiology Progress Note ---
Assessment/Plan Assessment/Plan 1. [id number] myocardial infarction, silent. 2. Fever and leukocytosis. 3. Probable urinary tract infection. 4. Status post recent ureteral stent placement. 5. Nephrolithiasis. 6. Coronary disease with history of stent. 7. History of hemorrhagic CVA, status post evacuation with left-sided hemiparesis. 8. History of deep venous thrombosis and pulmonary emboli status, on anticoagulation with Xarelto. 9. Phtn 10. Fernando relted to [facility] venous dupelx neg trop down trending still no sx to suggest acs / pe is off xarelto on heparin on Ecotrin lwo dose prelim echo noted phtn chronicity unknown [facility] have recommended that pt consider tx to [facility] of note: he did not experience any cp prior to his stent in 2004 only sob d/w earlier to day at [facility] perfoming mpi in setting of ami may nto be safe as if any issue do arise with stress testing nothign can be offered invasively here d/w dr avila d/w dr echeverria d/w pillowcase cleaner Subjective Cardiovascular: Denies: chest pain, lightheadedness, palpitations Respiratory: Denies: shortness of breath Gastrointestinal/Abdominal: Denies: abdominal pain Genitourinary: Denies: burning Objective Last 24 Hour Vital Signs Date Time Temp Pulse Resp B/P (MAP) Pulse Ox O2 Delivery O2 Flow Rate FiO2 12/22/17 16:00 97.5 48 16 139/72 (94) 97 12/22/17 16:00 69 12/22/17 15:54 97.5 12/22/17 12:00 97.3 50 16 144/76 (98) 98 12/22/17 12:00 41 12/22/17 09:00 Nasal Cannula 3.0 12/22/17 08:40 167/74 12/22/17 08:00 97.2 55 16 167/74 (105) 98 12/22/17 08:00 37 12/22/17 04:00 97.7 63 20 126/60 (82) 97 12/22/17 04:00 42 12/22/17 00:00 98.5 49 20 157/72 (100) 98 12/22/17 00:00 44 12/21/17 21:00 Nasal Cannula 3.0 12/21/17 20:00 50 11/14/18 20:00 98.4 50 20 148/78 (101) 99 General Appearance: no apparent distress, alert Neck: supple Cardiovascular: normal rate Respiratory/Chest: lungs clear Abdomen: normal bowel sounds, non tender, soft Extremities: non-tender Intake and Output 12/21/17 12/22/17 18:59 06:59 Intake Total 360 ml Output Total 1000 ml 1800 ml Balance -640 ml -1800 ml Intake Oral 360 ml Output Urine Total 1000 ml 1800 ml # Bowel Movements 1 1 Laboratory Tests Test 12/22/17 07:38 12/22/17 09:45 12/22/17 17:50 White Blood Count 6.3 K/UL (4.8-10.8) Red Blood Count 3.42 M/UL (4.70-6.10) L Hemoglobin 10.1 G/DL (14.2-18.0) L Hematocrit 30.4 % (42.0-52.0) L Mean Corpuscular Volume 89 FL (80-99) Mean Corpuscular Hemoglobin 29.6 PG (27.0-31.0) Mean Corpuscular Hemoglobin Concent 33.3 G/DL (32.0-36.0) Red Cell Distribution Width 12.8 % (11.6-14.8) Platelet Count 199 K/UL (150-450) Mean Platelet Volume 6.5 FL (6.5-10.1) Neutrophils (%) (Auto) 58.5 % (45.0-75.0) Lymphocytes (%) (Auto) 28.7 % (20.0-45.0) Monocytes (%) (Auto) 8.2 % (1.0-10.0) Eosinophils (%) (Auto) 3.4 % (0.0-3.0) H Basophils (%) (Auto) 1.2 % (0.0-2.0) Activated Partial Thromboplast Time 37 SEC (23-33) H 48 SEC (23-33) H Pending Sodium Level 141 MMOL/L (136-145) Potassium Level 3.6 MMOL/L (3.5-5.1) Chloride Level 105 MMOL/L (98-107) Carbon Dioxide Level 31 MMOL/L (21-32) Anion Gap 5 mmol/L (5-15) Blood Urea Nitrogen 13 mg/dL (7-18) Creatinine 1.2 MG/DL (0.55-1.30) Estimat Glomerular Filtration Rate mL/min (>60) Glucose Level 109 MG/DL (74-106) H Calcium Level 8.9 MG/DL (8.5-10.1) Total Bilirubin 0.5 MG/DL (0.2-1.0) Aspartate Amino Transf (AST/SGOT) 40 U/L (15-37) H Alanine Aminotransferase (ALT/SGPT) 91 U/L (12-78) H Alkaline Phosphatase 163 U/L (46-116) H Total Protein 6.6 G/DL (6.4-8.2) Albumin 2.4 G/DL (3.4-5.0) L Globulin 4.2 g/dL Albumin/Globulin Ratio 0.6 (1.0-2.7) L Hepatitis A IgM Antibody Pending Hepatitis B Surface Antigen Pending Hepatitis B Core IgM Antibody Pending Hepatitis C Antibody Pending Chalo Alfonso MD Dec 22, 2017 18:36
--- NOTE | 2017-12-22 19:48 | General Progress Note ---
Assessment/Plan Problem List: (1) CVA, old, hemiparesis ICD Codes: I69.359 - Hemiplegia and hemiparesis following cerebral infarction affecting unspecified side SNOMED: [id number] Status: stable, progressing Assessment/Plan anxiety d/o Encephalopathy due to toxin. Subjective Neurologic/Psychiatric: Reports: anxiety, depressed, emotional problems Allergies: Coded Allergies: No Known Allergies (Unverified , 12/15/17) Objective Last 24 Hour Vital Signs Date Time Temp Pulse Resp B/P (MAP) Pulse Ox O2 Delivery O2 Flow Rate FiO2 12/22/17 16:00 97.5 48 16 139/72 (94) 97 12/22/17 16:00 69 12/22/17 15:54 97.5 12/22/17 12:00 97.3 50 16 144/76 (98) 98 12/22/17 12:00 41 12/22/17 09:00 Nasal Cannula 3.0 12/22/17 08:40 167/74 12/22/17 08:00 97.2 55 16 167/74 (105) 98 12/22/17 08:00 37 12/22/17 04:00 97.7 63 20 126/60 (82) 97 12/22/17 04:00 42 12/22/17 00:00 98.5 49 20 157/72 (100) 98 12/22/17 00:00 44 12/21/17 21:00 Nasal Cannula 3.0 12/21/17 20:00 50 12/21/17 20:00 98.4 50 20 148/78 (101) 99 Intake and Output 12/21/17 12/22/17 18:59 06:59 Intake Total 360 ml Output Total 1000 ml 1800 ml Balance -640 ml -1800 ml Intake Oral 360 ml Output Urine Total 1000 ml 1800 ml # Bowel Movements 1 1 Laboratory Tests 12/22/17 07:38: White Blood Count 6.3, Red Blood Count 3.42L, Hemoglobin 10.1L, Hematocrit 30.4L , Mean Corpuscular Volume 89, Mean Corpuscular Hemoglobin 29.6, Mean Corpuscular Hemoglobin Concent 33.3, Red Cell Distribution Width 12.8, Platelet Count 199, Mean Platelet Volume 6.5, Neutrophils (%) (Auto) 58.5, Lymphocytes (% ) (Auto) 28.7, Monocytes (%) (Auto) 8.2, Eosinophils (%) (Auto) 3.4H, Basophils (%) (Auto) 1.2, Activated Partial Thromboplast Time 37H, Sodium Level 141, Potassium Level 3.6, Chloride Level 105, Carbon Dioxide Level 31, Anion Gap 5, Blood Urea Nitrogen 13, Creatinine 1.2, Estimat Glomerular Filtration Rate , Glucose Level 109H, Calcium Level 8.9, Total Bilirubin 0.5, Aspartate Amino Transf (AST/SGOT) 40H, Alanine Aminotransferase (ALT/SGPT) 91H, Alkaline Phosphatase 163H, Total Protein 6.6, Albumin 2.4L, Globulin 4.2, Albumin/ Globulin Ratio 0.6L, Hepatitis A IgM Antibody [Pending], Hepatitis B Surface Antigen [Pending], Hepatitis B Core IgM Antibody [Pending], Hepatitis C Antibody [Pending] 12/22/17 09:45: Activated Partial Thromboplast Time 48H 12/22/17 19:05: Activated Partial Thromboplast Time [Pending] Height (Feet): 5 Height (Inches): 7.00 Weight (Pounds): 226 General Appearance: alert, moderate distress Neurologic: depressed affect Aaron Arreguin MD Dec 22, 2017 19:48
[2017-12-22 20:00] VITALS: BP 131/73
[2017-12-22] MEDS: Tamsulosin 0.4mg cap ORAL SCH (20:45)
[2017-12-22] MEDS: Atorvastatin 80mg tab ORAL SCH (20:45)
[2017-12-22] MEDS ORDERED: Heparin 25,000u/D5W 500ml 500 ML IV SCH (21:30)
[2017-12-23] VITALS: BP 137/73
--- NOTE | 2017-12-26 10:42 | Discharge Summary ---
Discharge Summary Discharge Summary _ DATE OF ADMISSION: 12/15/2017 DATE OF DISCHARGE: 12/23/2017 REASON FOR ADMISSION: 77 years old male with past medical history of hypertension, diabetes mellitus, coronary artery disease, status post 2 cardiac stents placed about 5 years ago, CVA with left-sided weakness, BPH, GERD, history of PE and DVT after prolonged hospitalization, on Xarelto, which was held during recent urological intervention , presented with fever and lethargy. Patient was recently diagnosed with kidney stones and subsequently undergone lithotripsy at the [facility] which was not successful in treatment of right renal stones. At that time ureteral stent was placed. Upon evaluation in ED patient found to have fever, was tachycardic , hypoxic and required placement of 100 % nonrebreathing mask. Laboratory workup revealed significant leukocytosis WBC 21.6. Hemoglobin 12.1 hematocrit 34. BUN 27 creatinine 2.0. Troponin 4.688. EKG revealed sinus tachycardia no acute ischemic changes. AST 52 Urinalysis revealed evidence of UTI. Chest x-ray revealed low lung volumes , but no infiltrate was seen. Heart was enlarged. Aorta was mildly enlarged, consistent with atherosclerotic vascular disease. CT of the abdomen and pelvis revealed multiply nonobstructive stones within both kidneys. Right ureteral stent in good position. No hydronephrosis. Perinephric stranding nonspecific. Prostate hypertrophy. Moderate fecal retention. Posterior basal atelectasis. Cardiomegaly. Gallstones versus sludge. Patient provided with aspirin in emergency department Patient admitted with diagnosis of sepsis, urinary tract infection, elevated troponin, probably NSTEMI, altered mental status, multiply nonobstructive renal calculi, hypertension, coronary artery disease ,diabetes mellitus type 2, BPH ,history of DVT, cerebrovascular disease, hypercholesterolemia. CONSULTANTS: shoe trimmer Dr. Alfonso cardiology hand suture winder Dr. Porras pulmonary Dr. Hoover ID specialist Dr. Millan urologist psychiatrist [facility] COURSE: Patient initially admitted to ICU. Cardiology consult was requested. Patient started on heparin drip. Serial troponin revealed pattern suggestive of NSTEMI. Troponin was down trending. EKG revealed no acute ischemic changes . Patient had no cardiac complaints . Per cardiology patient had silent NSTEMI. Patient was continued on antiplatelet therapy with low dose of aspirin . Xarelto stopped when heparin drip initiated. Lipid panel was within normal limits , statin was continued. DVT prophylaxis provided. Echocardiogram revealed technically difficult study due to patient condition. Normal left ventricular chamber size, systolic function and wall motion to the extent visualized. Left ventricular ejection fraction estimated to be 55%. Mild left ventricular hypertrophy. Moderate tricuspid regurgitation. Right ventricular systolic pressure of 57 , consistent with moderate pulmonary hypertension. Per cardiology patient required cardiac catheterization. Apparently prior to his stent , patient did not experience any chest pain , only mild shortness of breath according to . Cardiology advised , that performing stress test in the setting of probable NSTEMI may not be safe in this facility. If any issue arise during stress testing, nothing can be for invasively in this facility. Patient was placed on the waiting list for transfer to [facility]. Cardiology hand suture winder was requested due to consistent bradycardia. Patient initially was on beta grey, which discontinued due to bradycardia. However patient remained bradycardic, despite being off beta grey. Patient was continued to be watched on telemetry. Patient was kept off any other sinus or AV telly acting agents. Venous duplex revealed no evidence of acute DVT. supplemental oxygen provided as needed to keep pulse oximetry above 92%. Pulmonary toilet provided as needed. Patient was able to be weaned to oxygen via nasal cannula. Blood culture revealed Pseudomonas aeruginosa, and urine culture revealed Pseudomonas aeruginosa. Antibiotic regimen was provided as per ID specialist recommendations. Follow up urine and blood culture were both negative. Leukocytosis and fevers resolved. Oxygen via nasal cannula pulse oximetry stable. Patient was on IV hydration. Renal parameters and electrolytes were closely monitored. Electrolytes corrected as needed. Nephrotoxins were avoided. Creatinine was trending down, prior to discharge creatinine - 1.2. Abdominal x-ray revealed right nephroureteral stent and right nephrolithiasis , no acute process. Abdominal ultrasound revealed cholelithiasis and gallbladder sludge. Negative for dilated ducts. Coarsened hepatic echogenicity. Presumptively representing hepatocellular disease, nonspecific as regards to etiology.. Not likely steatosis as normal hepatic attenuation was demonstrated on recent CT scan. Splenomegaly. Hepatitis panel was negative. Urologist followed. Flomax and Proscar continued. Urologist recommended treatment of stones later after stable cardiologically. Psychiatrist seen and evaluated patient initially, and diagnosed patient with encephalopathy due to toxin and anxiety disorder. Reality orientation supportive therapy provided Initially there was no bed at [facility]. declined transfer to [facility], where previous stent was placed. Subsequently bed became available at [facility], and patient was transferred via [facility] for further management. FINAL DIAGNOSES: Acute hypoxemic respiratory failure requiring 100% nonrebreathing mask , resolved NSTEMI, silent Bradycardia Sepsis with Pseudomonas aeruginosa bacteremia due to UTI Pseudomonas aeruginosa urinary tract infection Acute kidney injury/acute tubular necrosis - resolved Pulmonary HTN Coronary artery disease with history of stent History of DVT and PE History of hemorrhagic CVA with left hemiparesis Acute encephalopathy secondary to toxin - resolved Nephrolithiasis Status post recent ureteral stent placement BPH DISCHARGE MEDICATIONS: List of medication was sent to accepting facility DISCHARGE INSTRUCTIONS: Patient was discharged to [facility] for cardiac catheterization and furtehr management. Tiffany Gillis NP Dec 26, 2017 10:42
== END 2017-12-23 00:50 | disposition short-term general hospital (02) | DRG 871 ==
LOC: EDBD 15:46 → EMR 16:55 → EDBEDREQSVC 17:00 → ICU 17:02 → EDBEDREQ 17:17 → 2W 12-16 18:00 → 2E 12-19 13:30
DX: A41.52 Sepsis due to Pseudomonas (principal); I21.4 Non-ST elevation (NSTEMI) myocardial infarction; J96.01 Acute respiratory failure with hypoxia; G92 Toxic encephalopathy; N17.0 Acute kidney failure with tubular necrosis; N39.0 Urinary tract infection, site not specified; I69.954 Hemiplegia and hemiparesis following unspecified cerebrovascular disease affecting left non-dominant side; I10 Essential (primary) hypertension; I25.10 Atherosclerotic heart disease of native coronary artery without angina pectoris; Z95.5 Presence of coronary angioplasty implant and graft; E11.65 Type 2 diabetes mellitus with hyperglycemia; N40.0 Benign prostatic hyperplasia without lower urinary tract symptoms; Z86.718 Personal history of other venous thrombosis and embolism; Z79.01 Long term (current) use of anticoagulants; Z86.711 Personal history of pulmonary embolism; E78.00 Pure hypercholesterolemia, unspecified; Z74.01 Bed confinement status; R62.7 Adult failure to thrive; I27.20 Pulmonary hypertension, unspecified; F41.9 Anxiety disorder, unspecified; R00.1 Bradycardia, unspecified; T44.7X5A Adverse effect of beta-adrenoreceptor antagonists, initial encounter; Y92.239 Unspecified place in hospital as the place of occurrence of the external cause; D64.9 Anemia, unspecified; R31.9 Hematuria, unspecified; N43.3 Hydrocele, unspecified; N31.9 Neuromuscular dysfunction of bladder, unspecified
CPT/HCPCS: 36415; 71045; 74018; 74176; 76700; 80048; 80053; 80061; 81001; 81003; 82270; 82378; 82550; 82607; 82746; 83540; 83550; 83605; 83615; 83735; 84100; 84133; 84300; 84443; 84484; 84550; 85007; 85025; 85044; 85060; 85610; 85651; 85730; 86140; 86705; 86709; 86803; 87040; 87081; 87086; 87181; 87340; 89050; 93005; 93306; 93970; 94664; 94760; 96361; 96365; 96366; 96367; 99291; J2405; J8499